=== PATIENT | female | born 1955 | race Caucasian/White ===

== ENCOUNTER 2020-05-16 09:38 | Outpatient (CLI) | payer OTHER, SELFPAY ==
--- NOTE | ~2020-05-16 | NM_ITS ---
NM hepatobiliary w pharm 05/16/2020 13:18 Procedure: Hepatobiliary scan performed following IV administration 4.7 mCi Tc 99m Choletec. At 60 m inutes 1.3 mcg CCK administered IV for evaluation of gallbladder ejection fraction. Indication: Epigastric pain Comparison: Ultrasound dated 04/27/2019 Findings: There is normal radiotracer uptake in the liver parenchyma with prompt excretion into the b iliary tract. Gallbladder visualized at 55 minutes. Small bowel visualized at 40 minutes. Gallbla dder ejection fraction measures 28 %. (Normal is considered 10-90%, but most patients with gallbladde r dysfunction have GBEF of less than 35%) Impression: 1: Gallbladder ejection fraction below normal limits measuring 28%. Low GBEF is associated with gall bladder dysfunction, although not specific for acute or chronic cholecystitis. Reviewed, dictated and finalized at location B. Impression: 1: Gallbladder ejection fraction below normal limits measuring 28%. Low GBEF i s associated with gallbladder dysfunction, although not specific for acute or c hronic cholecystitis.
== END 2020-05-16 09:39 | disposition home or self-care (01) ==
PROVIDERS: PCP Family Medicine
DX: R10.13 Epigastric pain (principal)
CPT/HCPCS: 78227; A9537; J2805

== ENCOUNTER 2020-05-18 09:52 | Emergency (ER) | payer OTHER, SELFPAY ==
--- NOTE | ~2020-05-18 | US_ITS ---
US right upper quadrant INDICATION: Right upper quadrant abdominal pain. PROCEDURE: Realtime right upper abdominal ultrasound. COMPARISON: Ultrasound dated 04/27/2019 FINDINGS: The pancreas is normal without focal mass or pancreatic ductal dilation. Liver echotexture is normal without focal mass or intrahepatic biliary dilatation. Lesions seen in the left hepatic lo be on prior ultrasound not visualized on the current study. There is normal directional flow in the p ortal vein. The gallbladder is normal without stones, gallbladder wall thickening or pericholecystic fluid. Comm on bile duct measures 4 mm. No sonographic Grijalva's sign. IMPRESSION: 1: Normal limited abdominal ultrasound. Reviewed, dictated and finalized at location B.
[2020-05-18 09:59] VITALS: BP 107/83; PULSE 105; RESP 18; TEMP 37.1; O2SAT 100
--- NOTE | 2020-05-18 10:11 | ED.ABDPAIN ---
HPI - Abdominal Pain General Chief Complaint: Abdominal Pain Stated Complaint: GALLBLADDER Time Seen by Provider: 05/18/20 10:08 Related Data Home Medications Medication Instructions Recorded Confirmed alprazolam 0.5 mg PO BID PRN 09/27/19 09/27/19 amlodipine 2.5 mg PO DAILY 09/27/19 09/27/19 aspirin 81 mg PO DAILY 09/27/19 09/27/19 cholecalciferol (vitamin D3) 50,000 unit PO WEEKLY 09/27/19 09/27/19 estradiol 0.5 mg PO DAILY 09/27/19 09/27/19 famotidine [Pepcid] 20 mg PO DAILY 09/27/19 09/27/19 losartan 100 mg PO DAILY 09/27/19 09/27/19 progesterone micronized 200 mg PO HS 09/27/19 09/27/19 pantoprazole 40 mg tablet,delayed 40 mg PO QAM 05/17/20 release Allergies Allergy/AdvReac Type Severity Reaction Status Date / Time No Known Allergies Allergy Verified 05/18/20 10:06 FORMERLY [facility], [facility] Past Medical History Medical History (Updated 05/17/20 @ 15:49 by Sharron Jimenes) Depression Hx of bronchitis Hypertension Surgical History Surgical History (Updated 05/17/20 @ 15:49 by Sharron Jimenes) History of appendectomy lap in 2017 Family History Family History (Updated 06/04/18 @ 08:50 by DOCTOR UNKNOWN) Sibling Diabetes mellitus Hypertension Patient's brother is in good health Mother Patient's mother is in good health Family history of Alzheimer's disease Father Patient's father is , Onset Age: 63 Other Family history of alcoholism Family history of irritable bowel syndrome Family history of osteoporosis Social History Social History (Updated 05/17/20 @ 15:50 by Sharron Jimenes) Smoking packs per day: 1 Smoking cigarettes per day: 20.0 Years smoked: 40 Smoking pack-years: 40.00 Smoking status: Current every day smoker Tobacco type: cigarettes Alcohol intake: current Gender identity (if verbalized by the patient): Female Spiritual care concerns: No Course Vital Signs Vital signs: Vital Signs Temperature 37.1 C 05/18/20 09:59 Pulse Rate 105 H 05/18/20 09:59 Respiratory Rate 18 05/18/20 09:59 Blood Pressure 107/83 05/18/20 09:59 Pulse Oximetry 100 05/18/20 09:59 Temperature 37.1 C 05/18/20 09:59 Pulse Rate 105 H 05/18/20 09:59 Respiratory Rate 18 05/18/20 09:59 Blood Pressure 107/83 05/18/20 09:59 Pulse Oximetry 100 05/18/20 09:59 Discharge Plan Discharge Prescriptions: No Action amlodipine 2.5 mg Tablet 2.5 mg PO DAILY RF: 0 aspirin 81 mg Tablet,Delayed Release (Dr/Ec) 81 mg PO DAILY RF: 0 alprazolam 0.5 mg Tablet 0.5 mg PO BID PRN (Reason: Anxiety) RF: 0 famotidine [Pepcid] 20 mg Tablet 20 mg PO DAILY RF: 0 progesterone micronized 200 mg Capsule 200 mg PO HS RF: 0 estradiol 0.5 mg Tablet 0.5 mg PO DAILY RF: 0 losartan 100 mg Tablet 100 mg PO DAILY RF: 0 cholecalciferol (vitamin D3) 50,000 unit Tablet 50,000 unit PO WEEKLY RF: 0 pantoprazole [Protonix] 40 mg tablet,delayed release (DR/EC) 40 mg PO QAM RF: 0
[2020-05-18 10:36] LABS: Basophils Absolute Auto 0.1 K/mm3 (0.0-0.1); Basophils Percent Auto 1.3 % (0.2-1.2); Eosinophils Absolute Auto 0.7 K/mm3 (0-0.3); Eosinophils Percent Auto 8.1 % (0-4.4); Hemoglobin 14.7 g/dL (12.0-15.0); Immature Granulocyte Absolute 0.02 K/mm3 (0.00-0.031); Immature Granulocyte Percent A 0.2 % (0-0.5); Lymphocytes Absolute Auto 3.45 K/mm3 (0.9-3.2); Lymphocytes Percent Auto 41.7 % (18.3-44.2); Mean Corpuscular HGB Conc 33.4 g/dl (32-36); Mean Corpuscular Hemoglobin 33.2 pg (26-34); Mean Corpuscular Volume 99.3 fl (80-100); Mean Platelet Volume 9.8 fl (7.4-10.4); Monocytes Absolute Auto 0.7 K/mm3 (0.1-0.6); Monocytes Percent Auto 8.6 % (2.6-8.5); Neutrophils Absolute Auto 3.3 K/mm3 (1.3-6.7); Neutrophils Percent Auto 40.1 % (45.5-73.1); Platelet Count Result 252 k/mm3 (150-375); Red Blood Count 4.43 M/mm3 (4.2-5.4); Red Cell Distribution Width 12.6 % (11.5-14.5); White Blood Count 8.3 K/mm3 (4.5-10.0)
[2020-05-18 10:40] LABS: Add Urine Microscopic? NO; Appearance Urine Clear (Clear); Bilirubin Urine Negative (Negative); Blood Urine Negative (Negative); Color Urine Yellow (Yellow); Glucose Urine UA Negative (Negative); Ketones Urine Negative (Negative); Leukocyte Esterase Ur Negative LEU/UL (Negative); Nitrate Urine Negative (Negative); Protein Urine Negative (Negative); Specific Grav Ur 1.009 (1.001-1.035); Urobilinogen Urine Negative mg/dL (<2.0)
[2020-05-18 10:49] LABS: Alanine Aminotransferase 14 U/L (4-35); Albumin Level 4.8 g/dL (3.5-5.1); Alkaline Phosphatase 100 U/L (38-126); Aspartate Amino Transferase 25 U/L (14-36); Bilirubin,Total 0.5 mg/dL (0.2-1.3); Blood Urea Nitrogen 10 mg/dL (7-17); Carbon Dioxide 28 mmol/L (22-30); Chloride 102 mmol/L (98-107); Estimated CRCL calculation 55 ml/min; Estimated Glomerular Filt Rate > 60; Glucose 109 mg/dL (65-105); Lipase 163 U/L (23-300); Sodium 138 mmol/L (137-145)
[2020-05-18] MEDS: MORPHINE SULFATE 4 MG/ML INJ IV PUSH (11:09)
[2020-05-18] MEDS: FAMOTIDINE 20 MG/2 ML VIAL IV PUSH (11:10)
[2020-05-18] MEDS: ONDANSETRON INJ 4 MG/2 ML VIAL IV PUSH (11:10)
[2020-05-18] MEDS: SODIUM CHLORIDE 0.9% IV 1,000 ML 999 ML IV CONT (11:10)
--- NOTE | 2020-05-18 11:17 | ED.ABDPAIN ---
HPI - Abdominal Pain General Chief Complaint: Abdominal Pain <Ivan Yancey PA-C - Last Filed: 05/18/20 12:20> Stated Complaint: GALLBLADDER <PEG Pete Last Filed: 05/18/20 12:20> Time Seen by Provider: 05/18/20 10:08 <PEG Pete Last Filed: 05/18/20 12:20> Source: patient <PEG Pete Last Filed: 05/18/20 12:20> Mode of arrival: ambulatory <PEG Pete Last Filed: 05/18/20 12:20> Limitations: no limitations <PEG Pete Last Filed: 05/18/20 12:20> History of Present Illness HPI narrative: Patient is a 64-year-old female who presents to emergency department for evaluation of right upper quadrant abdominal pain which is been going on for a long. Per patient saw ship fitter in [place] who scheduled a HIDA scan at [facility] which showed a decreased ejection fraction of the gallbladder. Patient notes that this was done on Thursday and since then she has had increasing pain. Patient denies radiation of pain. Patient denies any fever chills nausea vomiting diarrhea rectal bleeding or melena. Patient is not taken anything for her symptoms. Nothing is making the pain better or worse at this time. Patient notes that she prefers a surgeon at [facility] <Ivan Yancey PA-C - Last Filed: 05/18/20 12:20> Related Data Home Medications: Home Medications Medication Instructions Recorded Confirmed alprazolam 0.5 mg PO BID PRN 09/27/19 09/27/19 amlodipine 2.5 mg PO DAILY 09/27/19 09/27/19 aspirin 81 mg PO DAILY 09/27/19 09/27/19 cholecalciferol (vitamin D3) 50,000 unit PO WEEKLY 09/27/19 09/27/19 estradiol 0.5 mg PO DAILY 09/27/19 09/27/19 famotidine [Pepcid] 20 mg PO PRN 09/27/19 09/27/19 losartan 100 mg PO DAILY 09/27/19 09/27/19 progesterone micronized 200 mg PO HS 09/27/19 09/27/19 pantoprazole 40 mg tablet,delayed 40 mg PO QAM 05/17/20 release <Ivan Yancey PA-C - Last Filed: 05/18/20 12:20> Allergies/Adverse Reactions: Allergies Allergy/AdvReac Type Severity Reaction Status Date / Time No Known Allergies Allergy Verified 05/18/20 10:06 <Ivan Yacney PA-C - Last Filed: 05/18/20 12:20> Review of Systems Review of Systems: All systems reviewed & are unremarkable except as noted in HPI and below <Ivan Yancey PA-C - Last Filed: 05/18/20 12:20> PMFSH Past Medical History Medical History: Medical History Depression Hx of bronchitis Hypertension <Ivan Yancey PA-C - Last Filed: 05/18/20 12:20> Surgical History Surgical History: Surgical History History of appendectomy lap in 2017 <Ivan Yancey PA-C - Last Filed: 05/18/20 12:20> Family History Family History: Family History (Updated 06/04/18 @ 08:50 by DOCTOR UNKNOWN) Sibling Diabetes mellitus Hypertension Patient's brother is in good health Mother Patient's mother is in good health Family history of Alzheimer's disease Father Patient's father is , Onset Age: 63 Other Family history of alcoholism Family history of irritable bowel syndrome Family history of osteoporosis <Ivan Yancey PA-C - Last Filed: 05/18/20 12:20> Social History Social History: Social History Smoking packs per day: 1 Smoking cigarettes per day: 20.0 Years smoked: 40 Smoking pack-years: 40.00 Smoking status: Current every day smoker Tobacco type: cigarettes Alcohol intake: current Gender identity (if verbalized by the patient): Female Spiritual care concerns: No <Ivan Yancey PA-C - Last Filed: 05/18/20 12:20> Exam Narrative: Exam Narrative: GENERAL: Well-appearing, well-nourished, and in no acute distress. HEAD: Normocephalic, atraumatic. EYES: P
[2020-05-18 12:45] VITALS: BP 118/74; PULSE 73; RESP 18; O2SAT 98
== END 2020-05-18 12:47 | disposition home or self-care (01) ==
PROVIDERS: Emergency Medicine Emergency Medical Services; Emergency Provider Emergency Medicine; PCP Family Medicine
DX: R10.11 Right upper quadrant pain (principal); Z79.82 Long term (current) use of aspirin; I10 Essential (primary) hypertension; F32.9 Major depressive disorder, single episode, unspecified; F17.210 Nicotine dependence, cigarettes, uncomplicated
CPT/HCPCS: 36415; 76705; 80053; 81003; 83690; 85025; 96361; 96374; 96375; 99284; J2270; J2405; J7030

== ENCOUNTER 2020-05-22 01:27 | Outpatient (CLI) | payer OTHER, SELFPAY ==
[2020-05-22 19:24] LABS: SARS-CoV-2 RNA PCR Negative
== END 2020-05-22 01:28 | disposition home or self-care (01) ==
LOC: ANHCOVIDDT 01:28
PROVIDERS: PCP Family Medicine; Visit Provider Surgery
DX: Z01.818 Encounter for other preprocedural examination (principal); Z11.59 Encounter for screening for other viral diseases
CPT/HCPCS: 87635; C9803; U0003

== ENCOUNTER 2020-05-24 01:21 | Day surgery (SDC) | payer OTHER, SELFPAY ==
[2020-05-22 09:58] VITALS: BMI 21.4
[2020-05-24] VITALS (10 sets, daily range): BP systolic 108–166; BP diastolic 39–89; PULSE 62–124; RESP 12–22; TEMP 36.9–37.1; O2SAT 97–100
[2020-05-24] MEDS: LACTATED RINGERS 1,000 ML 30 ML IV CONT ×2 (12:10→14:09)
--- NOTE | 2020-05-24 12:15 | ECG_ITS ---
Measurements Intervals [place] Rate: 78 P: 68 CT: 149 QRS: 67 QRSD: 86 T: 64 QT: 351 QTc: 400 Interpretive Statements SINUS RHYTHM POSSIBLE LEFT ATRIAL ENLARGEMENT BASELINE ARTIFACT- V4-V5 BORDERLINE ECG Electronically Signed On 05-24-2020 13:13:34 CDT by Sedrick Huntley D.O.
--- NOTE | 2020-05-24 12:24 | WPDANESEPPF ---
Anes - Initial Pre Proc Eval Procedure: Operation Date: 05/24/20 13:30 Proposed Procedures p Laparoscopic Cholecystectomy - Marcia Pollack MD Date/Time: 05/24/20 12:24 Surgeon: Marcia Pollack MD Pre Op Diagnosis: chronic cholecystitis Patient Data Age: 64 Gender: F Height: 5 ft 4 in Weight: 57 kg Allergies Allergy/AdvReac Type Severity Reaction Status Date / Time oxycodone AdvReac UNABLE TO Verified 05/24/20 11:45 SLEEP Home Medications Medication Instructions Recorded Confirmed Type alprazolam 0.5 mg PO BID PRN 09/27/19 05/24/20 History amlodipine 2.5 mg PO DAILY 09/27/19 05/24/20 History aspirin 81 mg PO DAILY 09/27/19 05/24/20 History cholecalciferol (vitamin D3) 50,000 unit PO WEEKLY 09/27/19 05/24/20 History estradiol 0.5 mg PO DAILY 09/27/19 05/24/20 History famotidine [Pepcid] 20 mg PO DIRECTED PRN 09/27/19 05/24/20 History losartan 100 mg PO DAILY 09/27/19 05/24/20 History progesterone micronized 200 mg PO QAM 09/27/19 05/24/20 History pantoprazole 40 mg tablet,delayed 40 mg PO QAM 05/17/20 05/24/20 History release ondansetron 4 mg PO Q8H PRN #10 tablet 05/18/20 05/24/20 Rx tramadol 50 mg tablet 50 mg PO Q6H PRN #30 tablet 05/22/20 05/24/20 Rx Laboratory Tests 05/24/20 12:14 Amylase Pending Patient hx anesthesia problems: none Family hx anesthesia problems: none [facility] Social History Social History Smoking packs per day: 1 Smoking cigarettes per day: 20.0 Years smoked: 40 Smoking pack-years: 40.00 Smoking status: Current every day smoker Tobacco type: cigarettes Alcohol intake: current Drinks per week: 10 Gender identity (if verbalized by the patient): Female Spiritual care concerns: No Anes - Eval Final PreProcedure Day of Procedure 05/24/20 12:24 Patient weight: normal Heart: regular rate and rhythm Lungs: clear to auscultation Airway: Mallampati scale class II Neurological: alert and oriented Last oral intake: >/= 8 hours ASA classification: II Emergent: no Anesthetic plan: proceed Anesthesia type and monitoring: general ETT and standard monitoring Informed Consent: The patient's anesthetic plan and its attendant risks and benefits were discussed with the patient/family/POA. Questions were solicited and answers provided to the satisfaction of the patient/family/POA.
--- NOTE | 2020-05-24 12:26 | WPDHPUPDATE1 ---
History and Physical Update Update Date/Time: 05/24/20 12:26 History and Physical has been reviewed, including an updated exam of the patient. There are NO changes in the patient's condition. Risks, benefits, and alternatives have been discussed and questions answered. Patient agrees to proceed with procedure.
[2020-05-24] MEDS: KETOROLAC 15 MG/ML VIAL (*BKC) IV PUSH (12:33)
[2020-05-24 12:38] LABS: Amylase 75 U/L (30-110)
[2020-05-24] MEDS: ceFAZolin 2 GM/D5W 50 ML 2 GM/50 ML BAG IVPB (12:47)
[2020-05-24] MEDS: BUPIVACAINE/EPINEPHRINE 0.5% 10 ML VIAL 30 ML INFILTRATE (13:30)
--- NOTE | 2020-05-24 14:04 | PM.PROC ---
Procedure Note - Detailed Date of procedure: 05/24/20 Pre-op diagnosis: chronic cholecystitis Post-op diagnosis: same Procedure performed: laparoscopic cholecystectomy Description of procedure: The patient was taken to the operating room placed in the supine position. After adequate induction of general anesthesia, the patient was prepped and draped in normal sterile fashion. A time-out was then performed to verify the patient's identity as well as the procedure being performed. I then made a 5 mm incision in the infraumbilical region. Through this, a Veress needle was placed into the peritoneal cavity and CO2 gas was then insufflated. After adequate pneumoperitoneum was achieved, the Veress needle was removed and a 5 mm trocar was placed through this incision. I then placed the laparoscope through this trocar site and under direct visualization placed a further 12 mm subxiphoid port as well as 2 additional 5 mm ports in the right upper abdomen. The gallbladder was then identified and was noted to be slightly inflamed. I was able to place a grasper at the dome of the gallbladder and this was retracted anterior and cephalad up over the liver. A 2nd retractor was then placed at the infundibulum and retracted laterally, this allowed visualization of the triangle of Calot. I then was able to visualize the cystic duct in its entirety from its proximal insertion into the gallbladder, to its distal junction with the common hepatic/common bile duct junction. At this point, I carefully skeletonized the proximal cystic duct with the [place] dissector. I then clipped and transected the proximal cystic duct. Next I visualized the cystic artery. Again the artery was skeletonized, clipped, and transected. I then used the Bovie cautery to take down the peritoneal attachments of the gallbladder off the liver bed. Once the gallbladder specimen was completely detached, an endo-pouch was placed through the 12 mm port site. I then placed the gallbladder specimen into the Endo pouch and removed the endo-pouch from the 12 mm port site. The specimen will now be sent to pathology for further review. I then copiously irrigated the right upper quadrant. Hemostasis was noted in the liver bed, the clips were noted to be in good position on both the cystic duct stump and the cystic artery stump. No other pathology was noted in the right upper quadrant. I then moved the laparoscope to the subxiphoid port. No iatrogenic injury or other pathology was noted in the lower abdomen. At this point, the abdomen was desufflated and all ports removed. The fascia of the 12 mm subxiphoid port was closed with a 0 Vicryl figure of 8 suture. All port sites were then closed with 4.O Monocryl subcuticular sutures. Dermabond was placed on each incision. The patient tolerated the procedure well, was extubated in the operating room postoperative and will be transferred to the recovery room in stable condition. Implants: none Anesthesia: GETA Surgeon: Marcia Pollack MD Estimated blood loss (mL): 5 Drains: No Packing: No Pathology: yes Complications: No immediate complications Condition: stable Disposition: PACU Findings: mild chronic cholecystitis
--- NOTE | 2020-05-24 16:51 | SUR.PHASEII ---
DR. WILKERSON CALLED RE: HOME PAIN MED; PT REPORTS INSOMNIA WITH TRAMADOL AND OXYCODONE. PT HAS BOTH MEDS AT HOME; DR. WILKERSON INSTRUCTED TO HAVE PT TAKE BENADRYL IF SHE HAS INSOMNIA; PT UNDERSTANDS.
== END 2020-05-24 16:30 | disposition home or self-care (01) ==
PROVIDERS: PCP Family Medicine; Visit Provider Surgery
PROC: 0FT44ZZ Resection of Gallbladder, Percutaneous Endoscopic Approach (ICD-10-PCS; CPT 47562; principal; 2020-05-24 13:30)
DX: K81.1 Chronic cholecystitis (principal); F17.210 Nicotine dependence, cigarettes, uncomplicated; Z79.82 Long term (current) use of aspirin
CPT/HCPCS: 47562; 36415; 82150; 86850; 86900; 86901; 87635; 88304; 93005; A9270; C9803; J0330; J0690; J1100; J1885; J2250; J2405; J2704; J2710; J3010; J7030; J7120; U0003

== ENCOUNTER → 2020-08-10 11:26 | Outpatient (CLI) | payer OTHER, SELFPAY ==
--- NOTE | ~2020-08-10 | MM_ITS ---
EXAMINATION: MM screening douglas BI w alana HISTORY: Screening TECHNIQUE: Craniocaudal and mediolateral oblique 3-D tomosynthesis images were obtained and synthetic 2-D images were generated. CAD analysis was submitted and interpreted. COMPARISON: Comparison to multiple prior studies sequentially, with oldest reviewed study dated 11/27. BREAST PARENCHYMAL COMPOSITION: The breasts are heterogeneously dense, which may obscure small masses . FINDINGS: There is no evidence of suspicious mass, calcification, or architectural distortion to sugg est malignancy in either breast. There has been no suspicious interval change. IMPRESSION: 1. No mammographic evidence of malignancy. 2. Recommend routine screening mammography in one year. BI-RADS Category 1: Negative Reviewed, dictated and finalized at location A.
== END ==
PROVIDERS: Visit Provider Obstetrics & Gynecology Gynecology
DX: Z12.31 Encounter for screening mammogram for malignant neoplasm of breast (principal)
CPT/HCPCS: 77063; 77067

== ENCOUNTER → 2020-08-17 07:38 | Outpatient (CLI) | payer OTHER, SELFPAY ==
--- NOTE | ~2020-08-17 | US_ITS ---
EXAMINATION: US abdomen complete DATE: 08/17/2020 08:20 INDICATION: Generalized abdominal pain, recent cholecystectomy TECHNIQUE: Multiple grayscale and Doppler ultrasound images of the abdomen were obtained. COMPARISON: 05/18/2020 FINDINGS: The head, body, and tail of the pancreas are normal. The liver is normal with normal echoge nicity and echotexture. No surface nodularity. Normal hepatopetal flow in the main portal vein. The g allbladder is surgically absent. The normal common bile duct measures 7 mm. The visualized portions o f the aorta and inferior vena cava are normal. The right kidney measures 9.5 x 3.9 x 4.5 cm. The left kidney measures 10.4 x 5.4 x 4.4 cm. The kidne ys demonstrate normal parenchymal echogenicity. There is no hydronephrosis. The spleen is normal in a ppearance and measures 7.2 cm. IMPRESSION: 1. No sonographic correlate for the patient's symptoms. Interval cholecystectomy. Reviewed, dictated and finalized at location A. IMPRESSION: 1. No sonographic correlate for the patient's symptoms. Interval cholecystectom y.
== END ==
PROVIDERS: PCP Family Medicine; Visit Provider Family Medicine
DX: K81.1 Chronic cholecystitis (principal)
CPT/HCPCS: 76700

== ENCOUNTER → 2021-01-23 09:22 | Outpatient (CLI) | payer OTHER, SELFPAY ==
--- NOTE | ~2021-01-23 | CT_ITS ---
EXAMINATION: CT abdomen pelvis w con DATE: 01/23/2021 10:02 INDICATION: Epigastric and right upper quadrant abdominal pain. Gastrointestinal reflux. Status post cholecystectomy and appendectomy TECHNIQUE: Computed tomography (CT) of the abdomen and pelvis was performed with 100 cc Omnipaque 350 intravenous contrast. Automated exposure control and iterative reconstruction technique were employe d. Exam dose: 325.93 mGy-cm total exam DLP. COMPARISON: 12/20/2018 CT abdomen pelvis FINDINGS: The lung bases are clear. Normal heart size. No pericardial or pleural effusion. Status post cholecystectomy. No hepatic, splenic, pancreatic, adrenal or renal space-occupying mass l esion is evident. No bile duct or pancreatic duct dilatation. No urinary tract calculus or hydrourete ronephrosis. The urinary bladder, uterus and adnexal areas are unremarkable. Normal caliber of the abdominal aorta. No intraperitoneal or retroperitoneal or pelvic mass lesion or adenopathy or ascites is detected. There is diverticulosis of the sigmoid and descending colon but no CT evidence of diverticulitis. No bowel obstruction, bowel wall thickening, pneumatosis or intraperitoneal free air is detected. Included skeletal structures are unremarkable. IMPRESSION: Diverticulosis of the left colon; no CT evidence of diverticulitis Status post cholecystectomy and appendectomy Reviewed, dictated and finalized at Location A. Reviewed, dictated and finalized at location B.
[2021-01-23 09:45] LABS: Estimated Glomerular Filt Rate > 60
== END ==
PROVIDERS: PCP Family Medicine; Visit Provider Family Medicine
DX: R10.13 Epigastric pain (principal); K57.30 Diverticulosis of large intestine without perforation or abscess without bleeding; Z90.49 Acquired absence of other specified parts of digestive tract
CPT/HCPCS: 74177; Q9967

== ENCOUNTER → 2021-02-14 10:26 | Outpatient (CLI) | payer OTHER, SELFPAY ==
--- NOTE | ~2021-02-14 | CT_ITS ---
EXAMINATION: CT lung screening EXAM DATE: 02/14/2021 10:40 INDICATION: Z87.891 - Personal history of nicotine dependence. TECHNIQUE: Spiral low dose CT of the chest without contrast. Axial, coronal and sagittal images were reviewed. The dose-length product (DLP) for this examination was 40.49 mGy-cm. The exposure was ta ilored according to patient size (auto mA exposure control), and iterative reconstruction (ASIR) was used as additional dose reduction technique. Comparison is made to prior examination from 07/01/2018. FINDINGS: Mild emphysema and hyperinflation. There is 3 mm right lower lobe superior segmental nodul e, and a left lower lobe 3 mm nodule both unchanged consistent with granulomata. No suspicious pulmon cash nodules. Tracheobronchial tree is patent. There is no mediastinal, hilar or axillary lymphadeno kavya. There are no pleural or pericardial effusions. There is no pneumothorax. Heart normal in size. There is mild coronary arterial calcification, arterial sclerosis. There are cholecystectom y clips. There is mild thoracic spondylosis without osteoblastic or osteolytic lesions identified. There is no significant interval change. IMPRESSION: Lung-RADS category 2, benign appearance or behavior (<1% chance of malignancy); recommend continued LDCT screening in 1 year. Reviewed, dictated and finalized at location A.
== END ==
PROVIDERS: PCP Family Medicine; Visit Provider Nurse Practitioner Family
DX: Z12.2 Encounter for screening for malignant neoplasm of respiratory organs (principal); Z87.891 Personal history of nicotine dependence
CPT/HCPCS: 71271

== ENCOUNTER 2021-02-16 08:06 | Emergency (ER) | payer OTHER, SELFPAY ==
--- NOTE | ~2021-02-16 | XR_ITS ---
EXAMINATION: XR shoulder LT min 2V DATE: 02/16/2021 08:59 INDICATION: Left shoulder pain TECHNIQUE: AP internally and externally rotated, AP oblique externally rotated and transscapular Y vi ews of the left shoulder were obtained. COMPARISON: 12/25/2007 FINDINGS: Interval healing of the previously seen comminuted proximal left humeral fracture with negligible res idual deformity at the surgical neck and greater tuberosity. Alignment remains essentially anatomic. No acute fracture.Mild glenohumeral and acromioclavicular osteoarthritis. Visualized portions of the lungs are clear. Soft tissues are unremarkable. IMPRESSION: 1. Old healed proximal left humeral fracture with no acute osseous abnormality. 2. Mild glenohumeral and acromioclavicular osteoarthritis. Reviewed, dictated and finalized at location A.
--- NOTE | 2021-02-16 08:22 | ED.GENADULT ---
HPI - General Adult General Chief complaint: Extremity Injury, Upper Stated complaint: Left shoulder Pain Time Seen by Provider: 02/16/21 08:30 Source: patient and RN notes reviewed Mode of arrival: ambulatory Limitations: no limitations History of Present Illness HPI narrative: 65 year old female who presents to [facility] care with complaints of pain to her left shoulder for the past 4 days. Patient states that she carried a bag of clothes in her left arm on Thursday from [employer] but denies any known injury or fall onto her left shoulder. Patient states that pain is from top of her left shoulder and it radiates down her left arm, she states that pain feels deep in her upper arm. Patient does have some limited ROM of her shoulder but denies any tingling or numbness of her fingers or arm, has strong left radial pulse. Patient states that she did have previous fracture to her left upper arm. MD complaint: left shoulder and arm pain Onset (ago): day(s) (4) Location: upper extremity (left shoulder) Radiation: distal Severity scale (1-10): 5 Quality: aching Pain Consistency: constant Relieving factors: none Exacerbating factors: movement Associated symptoms: denies other symptoms Treatments prior to arrival: other (Tylenol) Related Data Home Medications Medication Instructions Recorded Confirmed aspirin 81 mg PO DAILY 09/27/19 01/30/21 estradiol 0.5 mg PO DAILY 09/27/19 01/30/21 progesterone micronized 200 mg PO QAM 09/27/19 01/30/21 Allergies Allergy/AdvReac Type Severity Reaction Status Date / Time tramadol AdvReac Intermediate Other Verified 01/30/21 11:10 oxycodone AdvReac UNABLE TO Verified 01/30/21 11:10 SLEEP Review of Systems Review of Systems: Narrative: CONSTITUTIONAL: Denies fever, chills, or sweats. EYES: Denies visual changes, redness, or discharge. ENT: Denies rhinorrhea, congestion, sore throat, or otalgia. CARDIOVASCULAR: Denies chest pain, palpitations, or edema. RESPIRATORY: Denies productive cough or acute dyspnea. GASTROINTESTINAL: Denies abdominal pain, nausea, vomiting, or diarrhea. GENITOURINARY: Denies dysuria or hematuria. SKIN: Denies rash or itching. MUSCULOSKELETAL: States some lower back pain,left shoulder joint pain, or myalgia. NEUROLOGIC: Denies headache, numbness, or weakness. PSYCHIATRIC: Positive anxiety or depression. All systems reviewed & are unremarkable except as noted in HPI and below PMFSH Past Medical History Medical History (Updated 02/18/21 @ 11:22 by Vandana Joy NP) Anxiety disorder, unspecified Depression Fracture of left humerus GERD without esophagitis High triglycerides Hx of bronchitis Hypertension Obstructive lung disease Screening, lipid Surgical History Surgical History History of appendectomy lap in 2017 Family History Family History Sibling Diabetes mellitus Hypertension Patient's brother is in good health Mother Patient's mother is in good health Family history of Alzheimer's disease Father Patient's father is , Onset Age: 63 Other Family history of alcoholism Family history of irritable bowel syndrome Family history of osteoporosis Social History Social History Smoking packs per day: 1 Smoking cigarettes per day: 20.0 Years smoked: 40 Smoking pack-years: 40.00 Smoking status: Current every day smoker Tobacco type: cigarettes Alcohol intake: current Drinks per week: 10 Gender identity (if verbalized by the patient): Female Spiritual care concerns: No Comments At time of signature, agree with nursing past medical, surgical, social and family history. There is no relevant family history pertinent to the presenting complaint Exam Narrative: Exam Narrative: GENERAL: Well-appearing, well-nourished, and in no acute distress.
[2021-02-16 08:27] VITALS: BP 140/50; PULSE 86; RESP 20; TEMP 36.5; O2SAT 100
== END 2021-02-16 09:30 | disposition home or self-care (01) ==
PROVIDERS: Emergency Provider Registered Nurse; PCP Family Medicine
DX: M25.512 Pain in left shoulder (principal); F17.210 Nicotine dependence, cigarettes, uncomplicated; F41.9 Anxiety disorder, unspecified; F32.9 Major depressive disorder, single episode, unspecified; K21.9 Gastro-esophageal reflux disease without esophagitis; I10 Essential (primary) hypertension; E78.1 Pure hyperglyceridemia; Z79.82 Long term (current) use of aspirin
CPT/HCPCS: 73030; 99213; G0463

== ENCOUNTER → 2021-04-09 02:29 | Outpatient (CLI) | payer OTHER, SELFPAY ==
[2021-04-09 23:31] LABS: SARS-CoV-2 RNA PCR Negative
== END ==
PROVIDERS: PCP Family Medicine; Visit Provider Internal Medicine Gastroenterology
DX: Z01.812 Encounter for preprocedural laboratory examination (principal); Z20.822 Contact with and (suspected) exposure to COVID-19
CPT/HCPCS: C9803; U0003; U0005

== ENCOUNTER 2021-04-12 00:28 | Day surgery (SDC) | payer OTHER, SELFPAY ==
[2021-04-04 10:40] VITALS: BMI 20.8
[2021-04-12 09:36] VITALS: BMI 20.6
[2021-04-12] MEDS: LACTATED RINGERS 1,000 ML 150 ML IV CONT (09:43)
--- NOTE | 2021-04-12 10:07 | WPDANESEPPF ---
Anes - Initial Pre Proc Eval Procedure: Operation Date: 04/12/21 10:45 Proposed Procedures p Esophagogastroduodenoscopy & Screening Colonoscopy - George Robertson MD Date/Time: 04/12/21 10:07 Surgeon: George Robertson MD Pre Op Diagnosis: neoplasm screen, fam hx colon polyps, epigastric p Patient Data Age: 65 Gender: F Height: 5 ft 4 in Weight: 54.6 kg Allergies Allergy/AdvReac Type Severity Reaction Status Date / Time tramadol AdvReac Intermediate Other Verified 04/12/21 09:34 oxycodone AdvReac UNABLE TO Verified 04/12/21 09:34 SLEEP Home Medications Medication Instructions Recorded Confirmed Type aspirin 81 mg PO DAILY 09/27/19 04/12/21 History estradiol 0.5 mg PO DAILY 09/27/19 04/12/21 History progesterone micronized 200 mg PO QAM 09/27/19 04/12/21 History alprazolam 0.5 mg tablet 0.5 mg PO BID PRN #180 tablet 01/14/21 04/12/21 Rx pantoprazole 40 mg tablet,delayed 40 mg PO QAM #90 tablet 01/14/21 04/12/21 Rx release umeclidinium 62.5 mcg-vilanterol 1 inh INHALATION DAILY 02/21/21 04/12/21 History 25 mcg/actuation powdr for inhalation amlodipine 2.5 mg tablet 2.5 mg PO DAILY #90 tablet 03/04/21 04/12/21 Rx sodium,potassium,mag sulfates 17.5 See Rx Instructions PO .COMPLEX 03/12/21 04/12/21 Rx gram-3.13 gram-1.6 gram oral soln #354 ml sertraline 25 mg tablet 25 mg PO DAILY #90 tablet 04/02/21 04/12/21 Rx losartan 100 mg PO DAILY 04/04/21 04/12/21 History rosuvastatin 20 mg PO DAILY 04/04/21 04/12/21 History Patient hx anesthesia problems: none Family hx anesthesia problems: none PMFSH Past Medical History Medical History (Updated 02/21/21 @ 11:22 by George Robertson MD) Anxiety disorder, unspecified Depression Epigastric pain Fracture of left humerus GERD without esophagitis High triglycerides Hx of bronchitis Hypertension Nausea Obstructive lung disease Screening, lipid Surgical History Surgical History History of appendectomy lap in 2017 Family History Family History Sibling Diabetes mellitus Hypertension Patient's brother is in good health Mother Patient's mother is in good health Family history of Alzheimer's disease Father Patient's father is , Onset Age: 63 Other Family history of alcoholism Family history of irritable bowel syndrome Family history of osteoporosis Social History Social History Smoking packs per day: 1 Smoking cigarettes per day: 20.0 Years smoked: 40 Smoking pack-years: 40.00 Smoking status: Current every day smoker Tobacco type: cigarettes Alcohol intake: current Drinks per week: 10 Alcohol use details: SOCIALLY Living arrangements: with family Gender identity (if verbalized by the patient): Female Spiritual care concerns: No Anes - Eval Final PreProcedure Day of Procedure 04/12/21 10:07 Patient weight: normal Heart: regular rate and rhythm Lungs: clear to auscultation Airway: Mallampati scale class II Neurological: alert and oriented ASA classification: III Emergent: no Anesthetic plan: proceed Anesthesia type and monitoring: general GIVS and standard monitoring Informed Consent: The patient's anesthetic plan and its attendant risks and benefits were discussed with the patient/family/POA. Questions were solicited and answers provided to the satisfaction of the patient/family/POA.
--- NOTE | 2021-04-12 10:12 | PM.HPGS ---
History of Present Illness History of Present Illness Consent: Risks, benefits, and alternatives have been discussed and questions answered. Patient agrees to proceed with procedure. Chief complaint: neoplasm screen, fam hx colon polyps, epigastric p Narrative: Tonia Azar is a 65 year old female here for egd and colooscopy. She has been having epigastric pain with radiation to RUQ for almost 2 years, she underwent lap velia but discomfort is back again, will stay all the time even though she changed her diet, sometimes pain is more intense and is affecting her quality of life. She also has chronic daily nausea. she is quite frustrated and would like to have answers. She has GES next week, then would like to see us in office [place] to discuss results Review of Systems Constitutional: Constitutional: Denies headache(s) and Denies weakness Eyes: Eyes: Denies blurry vision ENT: Reports Normal hearing present, Denies headache(s) and Denies neck pain Cardiovascular: Cardiovascular: Denies chest pain and Denies dyspnea Respiratory: Respiratory: Denies dyspnea Gastrointestinal: Gastrointestinal: Reports no additional gastrointestinal complaints Genitourinary: Genitourinary: Denies dysuria Musculoskeletal: Musculoskeletal: Denies neck pain Integumentary/Breasts: Skin/Breast: Denies dry skin Neurologic: Reports Normal hearing present, Denies headache(s) and Denies weakness Psychiatric: Psychiatric: Denies anxiety Endocrine: Endocrine: Denies change in body appearance Hematologic/Lymphatic: Hematologic/Lymphatic: Denies easy bleeding Allergic/Immunologic: Allergic/Immunologic: Denies urticaria PMFSH Past Medical History Medical History (Updated 04/12/21 @ 10:14 by George Robertson MD) Anxiety disorder, unspecified Chronic RUQ pain Colon cancer screening Depression Epigastric pain Fracture of left humerus GERD without esophagitis High triglycerides Hx of bronchitis Hypertension Nausea Obstructive lung disease Screening, lipid Surgical History Surgical History History of appendectomy lap in 2017 Family History Family History Sibling Diabetes mellitus Hypertension Patient's brother is in good health Mother Patient's mother is in good health Family history of Alzheimer's disease Father Patient's father is , Onset Age: 63 Other Family history of alcoholism Family history of irritable bowel syndrome Family history of osteoporosis Social History Social History Smoking packs per day: 1 Smoking cigarettes per day: 20.0 Years smoked: 40 Smoking pack-years: 40.00 Smoking status: Current every day smoker Tobacco type: cigarettes Alcohol intake: current Drinks per week: 10 Alcohol use details: SOCIALLY Living arrangements: with family Gender identity (if verbalized by the patient): Female Spiritual care concerns: No Meds Home Medications and Allergies Home Medications Medication Instructions Recorded Confirmed Type aspirin 81 mg PO DAILY 09/27/19 04/12/21 History estradiol 0.5 mg PO DAILY 09/27/19 04/12/21 History progesterone micronized 200 mg PO QAM 09/27/19 04/12/21 History alprazolam 0.5 mg tablet 0.5 mg PO BID PRN #180 tablet 01/14/21 04/12/21 Rx pantoprazole 40 mg tablet,delayed 40 mg PO QAM #90 tablet 01/14/21 04/12/21 Rx release umeclidinium 62.5 mcg-vilanterol 1 inh INHALATION DAILY 02/21/21 04/12/21 History 25 mcg/actuation powdr for inhalation amlodipine 2.5 mg tablet 2.5 mg PO DAILY #90 tablet 03/04/21 04/12/21 Rx sodium,potassium,mag sulfates 17.5 See Rx Instructions PO .COMPLEX 03/12/21 04/12/21 Rx gram-3.13 gram-1.6 gram oral soln #354 ml sertraline 25 mg tablet 25 mg PO DAILY #90 tablet 04/02/21 04/12/21 Rx losartan 100 mg PO
[2021-04-12 10:47] VITALS: BP 99/58; PULSE 99; RESP 28; O2SAT 99
[2021-04-12 10:57] VITALS: BP 115/67; PULSE 79; RESP 16; O2SAT 99
[2021-04-12 11:07] VITALS: BP 132/75; PULSE 79; RESP 16; O2SAT 99
== END 2021-04-12 11:22 | disposition home or self-care (01) ==
PROVIDERS: PCP Family Medicine; Visit Provider Internal Medicine Gastroenterology
PROC: 0DJ08ZZ Inspection of Upper Intestinal Tract, Via Natural or Artificial Opening Endoscopic (ICD-10-PCS; CPT 43235; principal; 2021-04-12 10:45)
DX: Z12.11 Encounter for screening for malignant neoplasm of colon (principal); D12.4 Benign neoplasm of descending colon; K57.30 Diverticulosis of large intestine without perforation or abscess without bleeding; K21.00 Gastro-esophageal reflux disease with esophagitis, without bleeding; K64.8 Other hemorrhoids; R11.0 Nausea; K21.9 Gastro-esophageal reflux disease without esophagitis; F41.9 Anxiety disorder, unspecified; F41.8 Other specified anxiety disorders; I10 Essential (primary) hypertension; F17.210 Nicotine dependence, cigarettes, uncomplicated; Z79.82 Long term (current) use of aspirin
CPT/HCPCS: 45385; 43239; 88305; C9803; J2704; J7120; U0003; U0005

== ENCOUNTER 2021-04-15 08:37 | Outpatient (CLI) | payer OTHER, SELFPAY ==
--- NOTE | ~2021-04-15 | NM_ITS ---
EXAM: NM gastric emptying study DATE: 04/15/2021 13:51 INDICATION: Nausea TECHNIQUE: A gastric emptying study was performed using the methodology of Walker DONALD, et al. J Nucl Med 2007; 48:568-572. The patient was given a meal consisting of 2 scrambled eggs labeled with 1 mCi Tc-99m sulfur colloid, 2 slices of toast, two packages of jam, and approximately 120 mL of water. Si multaneous anterior and posterior 1-min images of the abdomen were obtained with the patient supine a t multiple time points over a total period of 4 hours. The geometric mean of anterior and posterior v iews was determined, and the percentage retention was calculated for each time point. COMPARISON: None. FINDINGS: Gastric retention of the radiotracer-labeled meal was 63%, 41%, and 14% at the 1-hour, 2-hour, and 4- hour time points, respectively. With this technique, apparent rapid gastric emptying is suggested by <30% gastric retention at 1 hour. Delayed gastric emptying is defined by gastric retention of >90% at 1 hour, >60% retention at 2 hours, or >10% retention at 4 hours. IMPRESSION: 1. Delayed gastric emptying. Reviewed, dictated and finalized at location A.
== END 2021-04-15 08:38 | disposition home or self-care (01) ==
LOC: ANHIMG 08:43
PROVIDERS: PCP Family Medicine; Visit Provider Internal Medicine Gastroenterology
DX: K30 Functional dyspepsia (principal); R11.0 Nausea
CPT/HCPCS: 78264; A9541

== ENCOUNTER 2021-04-19 11:31 | Outpatient (CLI) | payer OTHER, SELFPAY ==
[2021-04-26 11:21] LABS: Coproporphyrin I 13.6 (6.5-33.2)
== END 2021-04-19 11:32 | disposition home or self-care (01) ==
PROVIDERS: PCP Family Medicine; Visit Provider Nurse Practitioner Family
DX: R10.9 Unspecified abdominal pain (principal)
CPT/HCPCS: 84120

== ENCOUNTER → 2021-08-29 14:14 | Outpatient (CLI) | payer OTHER, SELFPAY ==
--- NOTE | ~2021-08-29 | MM_ITS ---
EXAMINATION: MM screening douglas BI w alana HISTORY: Screening mammogram TECHNIQUE: Craniocaudal and mediolateral oblique 3-D tomosynthesis images were obtained and synthetic 2-D images were generated. CAD analysis was submitted and interpreted. COMPARISON: 08/10/2020, bilateral screening mammogram examinations bilateral diagnostic and limited right breast ultrasound 09/08/2017, 02/05/2017 complete right breast ultrasound examination diagnostic right mammogram 01/26/2017 bilateral screening mammogram BREAST PARENCHYMAL COMPOSITION: The breasts are heterogeneously dense, which may obscure small masses . FINDINGS: Occasional benign calcifications. There is no evidence of suspicious mass, calcification, o r architectural distortion to suggest malignancy in either breast. There has been no suspicious inter ashlyn change. IMPRESSION: 1. No mammographic evidence of malignancy. 2. Recommend routine screening mammography in one year. BI-RADS Category 2: Benign finding(s). Reviewed, dictated and finalized at location A.
== END ==
PROVIDERS: Visit Provider Nurse Practitioner
DX: Z12.31 Encounter for screening mammogram for malignant neoplasm of breast (principal)
CPT/HCPCS: 77063; 77067

== ENCOUNTER → 2021-09-10 18:03 | Outpatient (CLI) | payer OTHER, SELFPAY ==
--- NOTE | ~2021-09-10 | DEXA_ITS ---
Bone Density Report Name: Tonia Azar Age: 65 Sex: Female Ethnicity: White Date of : 1955 Indication: osteopenia; monitoring treatment; prior fracture; postmenopausal Referring Provider: TAMIR, MANDY Study: Bone densitometry was performed. Exam Date: September 10, 2021 Accession number: [id number] Bone Density: Region BMD T-score Z-score Classification AP Spine (L1-L4) 1.076 0.3 1.9 Normal Femoral Neck (Left) 0.663 -1.7 -0.2 Osteopenia Total Hip (Left) 0.766 -1.4 -0.3 Osteopenia Femoral Neck (Right) 0.572 -2.5 -1.0 Osteoporosis Total Hip (Right) 0.684 -2.1 -1.0 Osteopenia Total Hip Mean 0.725 -1.8 -0.7 Osteopenia World Health Organization criteria for BMD impression classify patients as: Normal (T-score at or above -1.0), Osteopenia (T-score between -1.0 and -2.5), or Osteoporosis (T-score at or below -2.5). 10-year Fracture Risk: FRAX not reported because: Some T-score for Spine Total or Hip Total or Femoral Neck at or below -2.5 Treated for osteoporosis Previous Exams: Region Exam Age BMD T-score BMD Change BMD Change Date g/cm2 vs Baseline vs Previous AP Spine(L1-L4) 09/10/2021 65 1.076 0.3 0.009 -0.012 05/02/2019 63 1.088 0.4 0.020 -0.029* 08/22/2016 60 1.117 0.6 0.049* 0.002 07/21/2014 58 1.115 0.6 0.047* 0.030* 03/16/2012 56 1.084 0.3 0.017 0.017 11/24/2008 52 1.068 0.2 Total Hip(Left) 09/10/2021 65 0.766 -1.4 -0.009 0.012 05/02/2019 63 0.754 -1.5 -0.021 -0.008 08/22/2016 60 0.763 -1.5 -0.013 0.003 07/21/2014 58 0.759 -1.5 -0.016 0.004 03/16/2012 56 0.756 -1.5 -0.020 -0.020 11/24/2008 52 0.775 -1.4 Total Hip(Right) 09/10/2021 65 0.684 -2.1 -0.052* -0.027* 05/02/2019 63 0.711 -1.9 -0.024 -0.044* 08/22/2016 60 0.755 -1.5 0.020 0.014 07/21/2014 58 0.742 -1.6 0.006 0.027 03/16/2012 56 0.715 -1.9 -0.021 -0.021 11/24/2008 52 0.736 -1.7 *Denotes significance at 95% confidence level, LSC for AP Spine = 0.022 g/cm2, LSC for Total Hip = 0.027 g/cm2 Clinical Information Provided by Patient: Has had a low trauma fracture Smokes Is being treated for osteoporosis Has used the following medications: HRT (i.e. estrogen/hormone t
== END ==
PROVIDERS: Visit Provider Nurse Practitioner
DX: Z78.0 Asymptomatic menopausal state (principal); M85.89 Other specified disorders of bone density and structure, multiple sites; M81.0 Age-related osteoporosis without current pathological fracture
CPT/HCPCS: 77080

== ENCOUNTER 2022-05-13 19:03 | Emergency (ER) | payer OTHER, SELFPAY ==
--- NOTE | ~2022-05-13 | CT_ITS ---
EXAMINATION: CT abdomen pelvis w con DATE: 05/13/2022 23:16 INDICATION: Epigastric abdominal pain. TECHNIQUE: Computed tomography (CT) of the abdomen and pelvis was performed with 100 mL Omnipaque 300 intravenous contrast. Automated exposure control and iterative reconstruction technique were employe d. The dose-length product was 255.00 mGy-cm. COMPARISON: CT abdomen and pelvis 01/23/2021 FINDINGS: The visualized portions of the lung bases demonstrate mild atelectasis. No pleural effusion . The liver and spleen are normal. There are changes of cholecystectomy. The pancreas, adrenal glands , and kidneys are normal. There is diverticulosis of the colon without evidence of diverticulitis. Th e appendix is not visualized. There are no pathologically enlarged lymph nodes. There is no free intr aperitoneal fluid. There is mild lumbar spondylosis. IMPRESSION: 1. No etiology for the patient's symptoms. Reviewed, dictated and finalized at location A.
[2022-05-13 19:28] VITALS: BP 133/52; PULSE 80; RESP 16; TEMP 36.6; O2SAT 99
[2022-05-13 21:10] LABS: Basophils Absolute Auto 0.1 K/mm3 (0.0-0.1); Basophils Percent Auto 0.4 % (0.2-1.2); Eosinophils Absolute Auto 0.7 K/mm3 (0-0.3); Eosinophils Percent Auto 5.2 % (0-4.4); Hematocrit 38.9 % (37.0-47.0); Hemoglobin 12.5 g/dL (12.0-15.0); Immature Granulocyte Absolute 0.06 K/mm3 (0.00-0.031); Immature Granulocyte Percent A 0.4 % (0-0.5); Lymphocytes Absolute Auto 2.71 K/mm3 (0.9-3.2); Lymphocytes Percent Auto 19.1 % (18.3-44.2); Mean Corpuscular HGB Conc 32.1 g/dl (32-36); Mean Corpuscular Hemoglobin 32.3 pg (26-34); Mean Corpuscular Volume 100.5 fl (80-100); Mean Platelet Volume 9.9 fl (7.4-10.4); Monocytes Absolute Auto 1.1 K/mm3 (0.1-0.6); Neutrophils Absolute Auto 9.5 K/mm3 (1.3-6.7); Neutrophils Percent Auto 66.9 % (45.5-73.1); Platelet Count Result 233 k/mm3 (150-375); Red Blood Count 3.87 M/mm3 (4.2-5.4); Red Cell Distribution Width 12.6 % (11.5-14.5); White Blood Count 14.2 K/mm3 (4.5-10.0)
[2022-05-13 21:22] LABS: Appearance Urine Clear (Clear); Bilirubin Urine Negative (Negative); Blood Urine Negative (Negative); Color Urine Yellow (Yellow); Glucose Urine UA Negative (Negative); Ketones Urine 1+ mg/dL (Negative); Leukocyte Esterase Ur Negative LEU/UL (Negative); Nitrate Urine Negative (Negative); Protein Urine Negative (Negative); Specific Grav Ur >= 1.030 (1.001-1.035); Urobilinogen Urine 0.2 mg/dL (<2.0); pH Urine 5.5 (5.0-9.0)
[2022-05-13 21:26] LABS: Alanine Aminotransferase 64 U/L (6-35); Albumin Level 4.2 g/dL (3.5-5.1); Alkaline Phosphatase 78 U/L (38-126); Anion Gap 7 mmol/L (8-16); Aspartate Amino Transferase 167 U/L (14-36); Bilirubin,Total 0.2 mg/dL (0.2-1.3); Blood Urea Nitrogen 11 mg/dL (7-17); Calcium 9.8 mg/dL (8.4-10.2); Carbon Dioxide 26 mmol/L (22-30); Chloride 106 mmol/L (98-107); Estimated CRCL calculation 63 ml/min; Estimated Glomerular Filt Rate > 60; Glucose 126 mg/dL (65-110); Lipase 158 U/L (23-300); Potassium 3.7 mmol/L (3.4-5.0); Sodium 139 mmol/L (137-145)
[2022-05-13 21:30] LABS: Add Urine Microscopic? YES; Mucus Urine Rare /lpf; RBC Urine 0-2 /hpf (0-2); Squamous Epithelial Cell Urine Few /hpf (Few); WBC Urine 0-3 /hpf
--- NOTE | 2022-05-13 22:26 | ED.ABDPAIN ---
HPI - Abdominal Pain General Chief Complaint: Abdominal Pain Stated Complaint: abd pain Time Seen by Provider: 05/13/22 21:37 History of Present Illness HPI narrative: Patient is a 66-year-old female who presents ER with upper abdominal pain. Began around 1:30 in the afternoon. It occurred after she had gone to the dentist to have a dental extraction. She did take a pain pill and a antibiotic due to the procedure. Pain was severe for about 20 to 30 minutes. No radiation. Sharp. No alleviating factors. Currently having pain at 6/10. She felt nauseated initially. No vomiting. No diarrhea. No urinary frequency urgency or dysuria. Patient no longer has a appendix or a gallbladder. Related Data Home Medications Medication Instructions Recorded Confirmed aspirin 81 mg tablet,delayed 81 mg PO DAILY 09/27/19 05/07/22 release estradiol 0.5 mg tablet 0.5 mg PO DAILY 08/27/21 05/07/22 progesterone micronized 200 mg 200 mg PO QAM 08/27/21 05/07/22 capsule Allergies Allergy/AdvReac Type Severity Reaction Status Date / Time tramadol AdvReac Intermediate Other Verified 05/13/22 19:32 oxycodone AdvReac UNABLE TO Verified 05/13/22 19:32 SLEEP Review of Systems Review of Systems: All systems reviewed & are unremarkable except as noted in HPI and below Constitutional: Constitutional: Denies chills and Denies fever(s) ENT: Denies nasal congestion and Denies sore throat Cardiovascular: Cardiovascular: Denies chest pain, Denies rapid heart rate and Denies radiating jaw, neck or arm pain Respiratory: Respiratory: Denies cough and Denies dyspnea Gastrointestinal: Gastrointestinal: Reports abdominal pain, Denies bloating, Reports nausea and Denies vomiting Genitourinary: Genitourinary: Denies nocturia, Denies dysuria and Denies flank pain Musculoskeletal: Musculoskeletal: Denies back pain, Denies myalgias and Denies arthralgias [facility] Past Medical History Medical History Adenomatous colon polyp Anxiety disorder, unspecified BMI 21.0-21.9, adult Cholecystectomy planned Chronic RUQ pain Colon cancer screening COVID-19 Depression Epigastric pain Fracture of left humerus Gastroparesis GERD without esophagitis High triglycerides Hx of bronchitis Hypertension Nausea Obstructive lung disease Screening, lipid Surgical History Surgical History History of appendectomy lap in 2017 Family History Family History Sibling Diabetes mellitus Hypertension Patient's brother is in good health Acute myocardial infarction Mother Patient's mother is in good health Family history of Alzheimer's disease Father Patient's father is , Onset Age: 63 Other Family history of alcoholism Family history of irritable bowel syndrome Family history of osteoporosis Social History Social History Smoking packs per day: 1 Smoking cigarettes per day: 20.0 Years smoked: 40 Smoking pack-years: 40.00 Smoking status: Current every day smoker Tobacco type: cigarettes Second hand tobacco smoke exposure: No Alcohol intake: current Drinks per week: 10 Alcohol use details: SOCIALLY Substance use: never Substance use type: does not use 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 HEAD: Normocephalic, atraumatic. ENT: Mucous membranes moist. CHEST: Clear to auscultation. No respiratory distress. HEART: Regular rate and rhythm. Normal peripheral pulses. ABDOMEN: Soft, mild generalized upper abdominal discomfort without guarding, nondistended. EXTREMITIES: Normal range of motion
[2022-05-13] MEDS: ONDANSETRON INJ 4 MG/2 ML VIAL IV PUSH (23:28)
[2022-05-13] MEDS: MORPHINE SULFATE (*CRX) 4 MG/ML INJ IV PUSH (23:29)
[2022-05-14 01:49] VITALS: BP 138/62; PULSE 82; RESP 18; O2SAT 98
[2022-05-14 02:02] LABS: SARS-CoV-2 RNA PCR Negative
== END 2022-05-14 01:52 | disposition home or self-care (01) ==
PROVIDERS: Physician Assistant; Emergency Provider Emergency Medicine; PCP Family Medicine
DX: K29.70 Gastritis, unspecified, without bleeding (principal); Z20.822 Contact with and (suspected) exposure to COVID-19; I10 Essential (primary) hypertension; J44.9 Chronic obstructive pulmonary disease, unspecified; K21.9 Gastro-esophageal reflux disease without esophagitis; K31.84 Gastroparesis; Z86.16 Personal history of COVID-19; Z86.010 Personal history of colon polyps; F17.210 Nicotine dependence, cigarettes, uncomplicated
CPT/HCPCS: 36415; 74177; 80053; 81001; 83690; 85025; 96374; 96375; 99284; C9803; J2270; J2405; Q9967; U0003; U0005

== ENCOUNTER 2022-05-22 10:30 | Outpatient (CLI) | payer OTHER, SELFPAY ==
--- NOTE | ~2022-05-22 | CT_ITS ---
EXAMINATION:CT lung screening DATE: 05/22/2022 11:15 INDICATION: Tobacco use. Current smoker with 40 pack year history. TECHNIQUE: Computed tomography (CT) of the chest was performed without intravenous contrast. Automate d exposure control and iterative reconstruction technique were employed. The dose-length product (DLP ) was 67.19 mGy-cm. COMPARISON: Chest CT 02/14/2021 FINDINGS: There is stable mild scarring at the lung apices. There is mild emphysema. There is mild at electasis bilaterally. There is a 2 mm nodule in right lower lobe. No pleural effusion. The heart siz e is normal. There are coronary artery calcifications. No pericardial effusion. There are changes of cholecystectomy. There is mild thoracic spondylosis. There is a benign bone island in T8 vertebral matilde dy. IMPRESSION: 1. Lung-RADS category 2: Benign appearance or behavior. Continue annual screening with noncontrast lo w-dose chest CT in 12 months. Reviewed, dictated and finalized at location A. IMPRESSION: 1. Lung-RADS category 2: Benign appearance or behavior. Continue annual screeni ng with noncontrast low-dose chest CT in 12 months.
== END 2022-05-22 10:31 | disposition home or self-care (01) ==
PROVIDERS: PCP Family Medicine; Visit Provider Nurse Practitioner Family
DX: Z12.2 Encounter for screening for malignant neoplasm of respiratory organs (principal); Z87.891 Personal history of nicotine dependence
CPT/HCPCS: 71271

== ENCOUNTER → 2022-12-23 16:11 | Outpatient (CLI) | payer MEDICARE, SELFPAY ==
--- NOTE | ~2022-12-23 | MM_ITS ---
EXAMINATION: MM screening douglas BI w alana HISTORY: Screening mammogram TECHNIQUE: Craniocaudal and mediolateral oblique 3-D tomosynthesis images were obtained and synthetic 2-D images were generated. CAD analysis was submitted and interpreted. COMPARISON: 08/21/2021, 08/06/2020, 05/02/2019 bilateral screening mammogram examinations BREAST PARENCHYMAL COMPOSITION: The breasts are heterogeneously dense, which may obscure small masses . FINDINGS: There is no evidence of suspicious mass, calcification, or architectural distortion to sugg est malignancy in either breast. There has been no suspicious interval change. IMPRESSION: 1. No mammographic evidence of malignancy. 2. Recommend routine screening mammography in one year. BI-RADS Category 1: Negative Reviewed, dictated and finalized at location A. E TESTER
== END ==
PROVIDERS: PCP Obstetrics & Gynecology Gynecology; Visit Provider Obstetrics & Gynecology Gynecology
DX: Z12.31 Encounter for screening mammogram for malignant neoplasm of breast (principal)
CPT/HCPCS: 77063; 77067

== ENCOUNTER 2023-06-02 08:05 | Outpatient (CLI) | payer MEDICARE, SELFPAY ==
--- NOTE | ~2023-06-02 | CT_ITS ---
EXAMINATION: CT lung screening DATE: 06/02/2023 09:35 INDICATION: Z87.891 - Personal history of nicotine dependence TECHNIQUE: Computed tomography (CT) of the chest was performed without intravenous contrast. Addition al 3D reconstructions utilizing coronal maximum intensity projection (MIP) were performed. Automated exposure control and iterative reconstruction technique were employed. The dose-length product was 64 .17 mGy-cm. COMPARISON: 05/22/2022 FINDINGS: Mild emphysema with unchanged mild biapical pleural-parenchymal scarring new 3 mm nodule in the right upper lobe on series 4, image 37. Couple additional unchanged 3 mm nodules in the superior segment o f the right lower lobe and in the right middle lobe. No pneumonia, pulmonary edema or pleural effusio n. Heart size is normal. Atherosclerotic coronary artery calcification. Unchanged minimal pericardial effusion. Thoracic aorta is normal in caliber. No pathologically enlarged thoracic lymphadenopathy. Cholecystectomy clips at the gallbladder fossa. A few diverticula at the splenic flexure of the colon . Mild thoracic spondylosis with sclerotic bone island at T9. IMPRESSION: 1. Lung-RADS category 2: Benign appearance or behavior. Continue annual screening with noncontrast lo w-dose chest CT in 12 months. Reviewed, dictated and finalized at location L. IMPRESSION: 1. Lung-RADS category 2: Benign appearance or behavior. Continue annual screeni ng with noncontrast low-dose chest CT in 12 months.
--- NOTE | 2023-06-02 12:57 | WPDSIXMINUTE ---
Six Minute Walk Procedure Procedure Performed Pulmonary Stress Test (6 min walk) Six Minute Walk Six Minute Walk: This is a 6 minute walk test. The test was performed and interpreted in accordance with the 2014 ERS/ATS task force guidelines. Findings: The patient's resting room air oxygen saturation measured by pulse oximetry was 94% and heart rate was 88 bpm. Patient ambulated for 396 meters and oxygen saturation remained 93 to 97%. Heart rate at the end of the study was 117 bpm. The patient did not qualify for supplemental oxygen at rest or with ambulation. There are no prior studies for comparison.
--- NOTE | 2023-06-02 12:59 | WPDPFTINT ---
PFT Procedure Performed PFT Procedure Performed Spirometry with Pre/Post Bronchodilator Plethysmography (Lung Vol) Diffusing Cap (DLCO) Flow Vol Loop PFT Interpretation This is a pulmonary function test with pre and post-bronchodilator spirometry, plethysmography and diffusing capacity. The test was performed and results interpreted in accordance with the 2019 and 2005 ATS/ERS Task Force guidelines respectively using the Global Lung Function Initiative-2012 reference equations. Patient demonstrated good effort and cooperation. Reproducibility criteria were met. The quality of the pre bronchodilator spirometry maneuver was Grade A and post bronchodilator spirometry maneuver was Grade A. Findings: Spirometry: There is decreased maximal expiratory airflow at all lung volumes with concave expiratory flow tracing. The contour the inspiratory flow tracing is normal. The pre bronchodilator FVC is 2.15 L, 69% predicted. The pre bronchodilator FEV1 is 1.31 L, 54% predicted. The pre bronchodilator FEV1: FVC ratio 61%. The post bronchodilator FVC is 2.46 L, representing a 14% increase. The post bronchodilator FEV1 is 1.53 L, representing a 17% increase. The post bronchodilator FEV1: FVC ratio 62%. Plethysmography: The total lung capacity is 5.40 L, 104% predicted. The functional residual capacity is 4.07 L, 137% predicted. The residual volume is 3.24 L, 152% predicted. Diffusing capacity: The diffusing capacity unadjusted for hemoglobin and carboxyhemoglobin is 10.9, 51% predicted. The diffusing capacity adjusted for alveolar volume is 3.56, 82% predicted. In comparison to previous pulmonary function testing on 07/01/2018 the post bronchodilator FVC is unchanged from 2.36 L to 2.46 L. The post bronchodilator FEV1 is unchanged from 1.62 L to 1.53 L. The total lung capacity is unchanged from 5.13 L to 5.40 L. The functional residual capacity is increased from 3.38 L to 4.07 L. The residual volume is unchanged from 2.96 L to 3.24 L. The diffusing capacity unadjusted for hemoglobin and carboxyhemoglobin is unchanged from 10.7 to 10.9. The diffusing capacity adjusted for alveolar volume is decreased from 4.38 to 3.56. Impression: There is a moderately severe obstructive abnormality with significant improvement after inhaling a single dose of albuterol. The increase in residual volume is consistent with air trapping from an obstructive abnormality. Hyperinflation is present as demonstrated by the increase in functional residual capacity and is consistent with an obstructive abnormality. The diffusing capacity unadjusted for hemoglobin and carboxyhemoglobin is moderately decreased and normalizes when adjusted for alveolar volume. In comparison to previous pulmonary function testing on 07/01/2018 there has been a greater than anticipated time dependent increase in the functional residual capacity and a greater than anticipated time dependent decrease in the diffusing capacity adjusted for alveolar volume with no significant change in the FVC, FEV1, total lung capacity, residual volume or diffusing capacity unadjusted for hemoglobin and carboxyhemoglobin. Clinical correlation is recommended.
== END 2023-06-02 08:06 | disposition home or self-care (01) ==
LOC: ANHPFT 08:08
PROVIDERS: PCP Family Medicine; Visit Provider Nurse Practitioner Family
DX: J44.9 Chronic obstructive pulmonary disease, unspecified (principal); R06.09 Other forms of dyspnea; Z87.891 Personal history of nicotine dependence; R94.2 Abnormal results of pulmonary function studies; Z12.2 Encounter for screening for malignant neoplasm of respiratory organs
CPT/HCPCS: 71271; 94060; 94618; 94726; 94729

== ENCOUNTER → 2023-10-13 10:16 | Outpatient (CLI) | payer MEDICARE, SELFPAY ==
--- NOTE | ~2023-10-13 | XR_ITS ---
Clinical Indication: Acute bronchitis PA and lateral views of the chest: Comparison: 11/05/2017 Findings: The lungs are clear, without evidence of focal consolidation or pleural effusion. Cardiome diastinal silhouette is within normal limits. Bones and soft tissues are unremarkable. Impression: Normal chest. Reviewed, dictated and finalized at location . RAL OPHTHALMOLOGIST Impression: Normal chest.
== END ==
PROVIDERS: PCP Family Medicine; Visit Provider Nurse Practitioner Adult Health
DX: J42 Unspecified chronic bronchitis (principal); J20.9 Acute bronchitis, unspecified
CPT/HCPCS: 71046

== ENCOUNTER → 2023-12-17 15:08 | Outpatient (CLI) | payer MEDICARE, SELFPAY ==
--- NOTE | ~2023-12-17 | XR_ITS ---
XR thoracic spine 3V DATE: 12/17/2023 15:48 INDICATION: Chronic neck pain, upper thoracic pain. TECHNIQUE: AP, lateral, swimmer views COMPARISON: None FINDINGS: There is osteopenia. Mild levoscoliosis of the thoracolumbar spine. The thoracic pedicles are intact. No thoracic spine fracture or bone destruction or paraspinal soft t issue thickening is detected. There is minimal degenerative spurring of the thoracic spine. IMPRESSION: Osteopenia and minimal degenerative spurring Reviewed, dictated and finalized at location L. LOPER SUPPORT ENGINEER
--- NOTE | ~2023-12-17 | XR_ITS ---
XR hip LT min 2V DATE: 12/17/2023 15:48 INDICATION: Left hip pain TECHNIQUE: AP and lateral views COMPARISON: None FINDINGS: No fracture or dislocation, avascular necrosis or bone destruction. Left hip joint space is well preserved. The symphysis and left sacral iliac joint are intact. IMPRESSION: No significant abnormality of left hip Reviewed, dictated and finalized at location L. L CONSTRUCTION WORKER
--- NOTE | ~2023-12-17 | XR_ITS ---
XR lumbar spine 2-3V DATE: 12/17/2023 15:47 INDICATION: Chronic low back pain radiating to left hip TECHNIQUE: AP, lateral, coned lateral lumbosacral views COMPARISON: None FINDINGS: Osteopenia. Normal alignment of the lumbar spine. No fracture or bone destruction or spondylolisthesis. The inclu ded lower thoracic and lumbar pedicles are intact. There is mild multilevel degenerative disc disease. No spondylolisthesis. The sacroiliac joints are intact. Surgical clips, right upper quadrant, consistent with cholecystectomy. IMPRESSION: Osteopenia Mild multilevel degenerative disc disease Reviewed, dictated and finalized at location L. INATION SPECIALIST
--- NOTE | ~2023-12-17 | XR_ITS ---
. XR_CERV2-3V_CR DATE: 12/17/2023 15:47 INDICATION: Chronic neck pain, increased on the right over past 4 days TECHNIQUE: AP, open-mouth, lateral views COMPARISON: December 17, 2023 thoracic spine including swimmer's view FINDINGS: C7 is not optimally demonstrated on the lateral cervical spine radiograph but is well demon strated on the thoracic spine swimmer's view today. C1 and C2 are normally aligned and the odontoid process is intact. C2-3 and C3-4 interspaces are well preserved. Moderate loss of interspace height at C4-5 with mild retrolisthesis. Moderately severe degenerative disc disease with mild retrolisthesis at C5-6. Uncovertebral joint spurring is noted in the mid and lower cervical spine, most prominent at C5-6. De generative change at the apophyseal joints. No fracture or dislocation or locked facet or prevertebral soft tissue swelling. IMPRESSION: Moderately prominent cervical spondylosis; no fracture or dislocation or locked facet Reviewed, dictated and finalized at Location A. Reviewed, dictated and finalized at location L. ETER IMPRESSION: Moderately prominent cervical spondylosis; no fracture or dislocati on or locked facet
== END ==
PROVIDERS: PCP Physician Assistant; Visit Provider Physician Assistant
DX: M85.88 Other specified disorders of bone density and structure, other site (principal); M54.50 Low back pain, unspecified; M25.552 Pain in left hip; G89.29 Other chronic pain; M54.2 Cervicalgia; M51.36 Other intervertebral disc degeneration, lumbar region; M43.02 Spondylolysis, cervical region
CPT/HCPCS: 72040; 72072; 72100; 73502

== ENCOUNTER 2023-12-18 03:00 | Emergency (ER) | payer MEDICARE, SELFPAY ==
--- NOTE | ~2023-12-18 | CT_ITS ---
Noncontrast CT scan of the cervical spine Technique: Multiple contiguous axial [address] images of the cervical spine were obtained and rec onstructed in 2D sagittal and coronal planes on the acquisition scanner. Dose reduction technique was used on this scan by utilizing automated exposure control, adjustment of the mA and/or kV according to patient size. The dose-length product (DLP) was 371.13 mGy-cm. Clinical History: Pain Findings: No fractures or dislocations. There is straightening of the normal cervical lordosis. Ther e is moderate to advanced degenerative disc narrowing at C4-C5 and C5-C6. There is mild right neural foraminal narrowing at C3-C4 with mild right facet arthropathy. There is probable mild bilateral neur al foraminal narrowing at C4-C5 with mild disc osteophyte complex. There is bilateral neural foramina l narrowing at C5-C6, right worse than left, with disc osteophyte complex and mild facet arthropathy. No prevertebral soft tissue swelling. Impression: No fracture or subluxation of the cervical spine. Degenerative spondylosis, as above. Reviewed, dictated and finalized at [facility]. NCIAL REPORTING ADVISOR Impression: No fracture or subluxation of the cervical spine. Degenerative spondylosis, as above.
--- NOTE | ~2023-12-18 | CT_ITS ---
Noncontrast CT scan of the thoracic spine CLINICAL HISTORY: Back pain TECHNIQUE: Axial noncontrast imaging of the thoracic spine was performed. Sagittal and coronal reform atted images were constructed. Dose reduction technique was used on this scan by utilizing automated exposure control and iterative reconstruction technique. The dose-length product (DLP) was 492.00 mGy -cm. FINDINGS: No fracture or subluxation of the thoracic spine identified. Vertebral bodies maintain norm al height and alignment. Intervertebral disc spaces demonstrate scattered minimal degenerative change . No significant disc bulge or herniation evident in the thoracic spine. No spinal canal stenosis or co rd compression evident. Paravertebral soft tissues are unremarkable. Impression: Minimal degenerative disc changes. Reviewed, dictated and finalized at location M. ESS CLERK Impression: Minimal degenerative disc changes.
--- NOTE | ~2023-12-18 | CT_ITS ---
Clinical Indication: Back pain CT Scan of the Chest with Contrast: Technique: Contiguous sections were acquired throughout the chest after intravenous administration of 100 cc of Omnipaque 350. Dose reduction technique was used on this scan by utilizing automated expos ure control and iterative reconstruction technique. The dose-length product (DLP) was 256.82 mGy-cm. COMPARISON: 06/02/2023 Findings: There is no evidence of any significant mediastinal, hilar or axillary lymphadenopathy. There is no f illing defect in the pulmonary arterial tree to suggest pulmonary embolus. There is no evidence of ao rtic dissection or aneurysm. There is no evidence of pleural or pericardial effusion. The lungs are clear. No pulmonary nodules or infiltrates are noted. Mild edematous change noted. Images through the upper abdomen reveal no abnormalities. Impression: No evidence of pulmonary embolus, aortic dissection, or aortic aneurysm. Mild emphysema. Reviewed, dictated and finalized at [facility]. ITE EDITOR Impression: No evidence of pulmonary embolus, aortic dissection, or aortic aneurysm. Mild emphysema.
[2023-12-18 03:03] VITALS: BP 150/75; PULSE 86; RESP 18; TEMP 36.8; O2SAT 96
--- NOTE | 2023-12-18 04:23 | ECG_ITS ---
Measurements Intervals [place] Rate: 65 P: 77 DE: 178 QRS: 70 QRSD: 90 T: 70 QT: 395 QTc: 411 Interpretive Statements SINUS RHYTHM POSSIBLE LEFT ATRIAL ENLARGEMENT [-0.1mV P WAVE IN V1/V2] OTHERWISE NORMAL ECG COMPARED TO ECG 05/24/2020 12:29:44 NO SIGNIFICANT CHANGES Electronically Signed On 12-18-2023 15:16:05 FORMS DESIGNER by Bhaskar Nath M.D.
--- NOTE | 2023-12-18 04:23 | ED.BACK ---
HPI - Back Pain/Injury General Chief Complaint: Back Pain/Injury Stated Complaint: back pain Time Seen by Provider: 12/18/23 03:16 Source: patient and family Limitations: no limitations History of Present Illness HPI Narrative: Patient is a 68-year-old female presents to the emergency department complaining of back pain. Patient states the pain is been going on for the past 4-5 days, constant, sharp stabbing, present in her mid upper back, also seems to be present in the back upper back, sometimes she has a shooting pain down her right arm that does not go further than the elbow. Patient states that sometimes the pain feels better when she is lying on her right side with pillows pressing on her right shoulder read. Patient denies any history of this pain in the past. Patient denies recent injuries, recent illness, cough, fever, chest pain, difficulty breathing, abdominal pain, nausea, vomiting, diarrhea, urinary incontinence, stool incontinence, history of cancer, use of blood thinners, history of IV drug use, weight loss, numbness, weakness, paresthesias, saddle anesthesia, vision changes, headache. patient went to her primary care physician yesterday was given a shot in her but was told that that would help with the does not seem to be helping much and she was also sent for x-rays she does not know the results of and she was also prescribed baclofen and diclofenac. Related Data Home Medications Medication Instructions Recorded Confirmed aspirin 81 mg tablet,delayed 81 mg PO DAILY 09/27/19 12/17/23 release estradiol 0.5 mg tablet 0.5 mg PO DAILY 08/27/21 12/17/23 progesterone micronized 200 mg 200 mg PO QAM 08/27/21 12/17/23 capsule cetirizine 10 mg tablet (Zyrtec) 10 mg PO DAILY PRN 05/07/23 12/17/23 clindamycin HCl 300 mg capsule 300 mg PO Q8H 12/17/23 12/17/23 Allergies Allergy/AdvReac Type Severity Reaction Status Date / Time tramadol AdvReac Intermediate Other Verified 12/17/23 14:40 oxycodone AdvReac UNABLE TO Verified 12/17/23 14:40 SLEEP Review of Systems Review of Systems: A 10 system review of systems was completed on the patient and is negative except for what is stated in the HPI. Nursing and ancillary documentation was reviewed. [facility] Past Medical History Medical History Adenomatous colon polyp Anxiety disorder, unspecified Cholecystectomy planned Chronic bronchitis with acute exacerbation Chronic RUQ pain Colon cancer screening COVID-19 Depression Elevated glucose Elevated liver enzymes Epigastric pain Fracture of left humerus Gastroparesis GERD without esophagitis High triglycerides Hx of bronchitis Hypertension Nausea Obstructive lung disease Screening, lipid Surgical History Surgical History History of appendectomy lap in 2017 Family History Family History Sibling Diabetes mellitus Hypertension Patient's brother is in good health Acute myocardial infarction Mother Patient's mother is in good health Family history of Alzheimer's disease Father Patient's father is , Onset Age: 63 Other Family history of alcoholism Family history of irritable bowel syndrome Family history of osteoporosis Social History Social History Smoking packs per day: 1 Smoking cigarettes per day: 20.0 Years smoked: 40 Smoking pack-years: 40.00 Smoking status: Current every day smoker Tobacco type: cigarettes Second hand tobacco smoke exposure: No Alcohol intake: current Drinks per week: 10 Alcohol use details: SOCIALLY Substance use: never Substance use type: does not use Lack of Transportation: No Lack of Food: Never True Current Housing: I Have Housing Concerned About Future Housing: No Difficulty Paying Gas/Electric Bills: No Difficulty Paying for Meds: No Currently Unemployed: Decline to Answer Education: High School Diploma/GED Difficulty w/ Childcare or Family Care: No Living arrangements: with family Occupation/Education: occupation 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 Please see the nursing chart for further information. There is no relevant family history pertinent to the presenting complaint. Exam Narrative: CONST: No acute distress. Well nourished. HENMT: Head is normocephalic and atraumatic. Moist mucous membranes. No posterior oropharynx erythema. EYES: No conjunctival icterus, injection, or pallor. PERRL. NECK: No meningeal signs. No carotid bruits on auscultation bilaterally. RESP: Able to speak in full sentences. Normal respiratory effort. CTAB. CARDIO: Regular rate. Regular rhythm. 2+ DP and radial pulses bilaterally. GI: Nondistended. No tenderness to palpation. Soft. : No CVA tenderness to palpation. SKIN: No rashes or lesions noted on exposed skin. NEURO: Oriented x3. Moves all extremities. No focal neurological deficits. Senior Oracle Database Administrator strength is 5/5 bilateral upper extremities. Motor strength is 5/5 in bilateral lower extremities. Sensation intact to light touch throughout all 4 extremities. Negative Spurling's test bilaterally. EXTREM/MSK/BACK: No pedal edema. Mild paracervical and parathoracic muscle spasms on the right. No significant midline tenderness to palpation of the vertebrae or step-offs or deformities. No bony tenderness to palpation throughout all 4 extremities. PSYCH: Normal affect. Course Vital Signs Vital signs: Vital Signs Temperature 98.2 F 12/18/23 03:03 Pulse Rate 86 12/18/23 03:03 Respiratory Rate 18 12/18/23 03:03 Blood Pressure 150/75 H 12/18/23 03:03 Pulse Oximetry 96 12/18/23 03:03 Oxygen Delivery Room Air 12/18/23 03:03 Temperature 98.2 F 12/18/23 03:03 Pulse Rate 86 12/18/23 03:03 Respiratory Rate 18 12/18/23 03:03 Blood Pressure 150/75 H 12/18/23 03:03 Pulse Oximetry 96 12/18/23 03:03 Oxygen Delivery Room Air 12/18/23 03:03 MDM - Back Pain/Injury MDM Narrative Medical decision making narrative: Patient presents with the above complaint. Initial vitals are remarkable for no significant abnormalities. Physical examination as noted above. Plan discussed: Laboratory analysis, EKG, CTA of the chest, CT of the cervical spine without contrast, CT of the thoracic spine without contrast, continues cardiac monitoring, continuous pulse oximetry, diazepam 5 mg p.o., Toradol 15 mg IV push. Patient was reassessed at the bedside. No changes in physical exam. Patient is in no acute distress. The patient has remained stable throughout the entire ED visit. Counseled patient regarding diagnostic results and potential diagnosis. Anticipatory guidance provided. Patient instructed to follow up with PCP within 1 week and neurosurgery in 4-6 weeks if symptoms do not resolve. Patient counseled on: false reassurance from an emergency department evaluation; no current evidence of a medical emergency; return immediately for any new, recurrent, worsening, concerning, or refractory symptoms. Patient prescribed flexeril and norco. Prescription sent to preferred pharmacy. Medications discussed with patient. Additional verbal and printed discharge instructions were given and discussed with the patient. Patient verbally acknowledges understanding of condition and discharge instructions. All questions were answered to the patient's satisfaction. Patient is in agreement with the plan of care. The patient is stable for discharge and was discharged without incident. Differential Diagnosis Differential diagnosis: Likely thoracic back pain and other ( Cervical radiculopathy, musculoskeletal strain, muscle spasms, ACS, pneumonia, aortic dissection.) Medical Records Attestation: I reviewed the patient's medical records. Lab Data Attestation: I reviewed the patient's lab results. Lab results narrative: CBC grossly within normal limits. Comprehensive metabolic panel grossly within normal limits. Lipase of 130. Total CK of 35. Magnesium of 2.1. Troponin is less than 0.012. Rapid COVID /influenza/ RSV PCR testing is negative. 12/18/23 05:09 12/18/23 05:09 Labs: Lab Results 12/18/23 Range/Units 05:09 WBC 8.7 (4.5-10.0) K/mm3 RBC 3.96 L (4.2-5.4) M/mm3 Hgb 12.6 (12.0-15.0) g/dL Hct 39.0 (37.0-47.0) % MCV 98.5 (80-100) fl MCH 31.8 (26-34) pg MCHC 32.3 (32-36) g/dl RDW 12.6 (11.5-14.5) % Plt Count 272 (150-375) k/mm3 MPV 9.8 (7.4-10.4) fl Immature Gran % (Auto) 0.2 (0-0.5) % Neut % (Auto) 49.6 (45.5-73.1) % Lymph % (Auto) 32.3 (18.3-44.2) % [place] % (Auto) 9.0 H (2.6-8.5) % Eos % (Auto) 8.1 H (0-4.4) % Baso % (Auto) 0.8 (0.2-1.2) % Lymph # (Auto) 2.80 (0.9-3.2) K/mm3 [place] # (Auto) 0.8 H (0.1-0.6) K/mm3 Eos # (Auto) 0.7 H (0-0.3) K/mm3 Baso # (Auto) 0.1 (0.0-0.1) K/mm3 Abs Immat Gran (auto) 0.02 (0.00-0.031) K/mm3 Absolute Neuts (auto) 4.3 (1.3-6.7) K/mm3 Absolute Nucleated RBC 0.0 (0.0-0.012) K/mm3 Nucleated RBC % 0.0 (0.0-0.2) % Sodium 138 (137-145) mmol/L Potassium 3.6 (3.4-5.0) mmol/L Chloride 106 (98-107) mmol/L Carbon Dioxide 25 (22-30) mmol/L Anion Gap 7 L (8-16) mmol/L BUN 15 (7-17) mg/dL Creatinine 0.90 (0.7-1.0) mg/dL Estim Creat Clear Calc 49 ml/min Estimated GFR > 60 (59 - ) Glucose 107 (65-110) mg/dL Calcium 9.4 (8.4-10.2) mg/dL Magnesium 2.1 (1.6-2.3) mg/dL Total Bilirubin 0.5 (0.2-1.3) mg/dL AST 35 (14-36) U/L ALT 22 (6-35) U/L Alkaline Phosphatase 113 (38-126) U/L Total Creatine Kinase 35 (30-135) U/L Troponin I < 0.012 (0.000-0.034) ng/mL Total Protein 7.0 (6.3-8.2) g/dL Albumin 3.9 (3.5-5.1) g/dL Lipase 130 (23-300) U/L Influenza A (RT-PCR) Negative (Negative) Influenza B (RT-PCR) Negative (Negative) RSV (RT-PCR) Negative (Negative) SARS-CoV-2 RNA (RT-PCR) Negative (Negative) Imaging Data Attestation: I personally reviewed and interpreted this imaging study as follows: Radiologist's impression: ITS Impressions Cervical Spine CT 12/18/23 06:05 Impression: No fracture or subluxation of the cervical spine. Degenerative spondylosis, as above. Thoracic Spine CT 12/18/23 06:06 Impression: Minimal degenerative disc changes. Chest CTA 12/18/23 06:08 Impression: No evidence of pulmonary embolus, aortic dissection, or aortic aneurysm. Mild emphysema. ECG Data EKG #1: Attestation: I personally reviewed and interpreted this ECG as follows: ECG completion date: 12/18/23 ECG completion time: 05:21 Prior ECG tracings: available for review (05/24/2020) EKG Interpretation: normal rate, sinus rhythm, no ectopy, no ST changes, normal QRS, normal QT, NL axis and no acute changes Discharge Plan Discharge Clinical Impression: Cervical radiculopathy Back pain Qualifiers: Back pain location: thoracic back pain Chronicity: acute Back pain laterality: midline Qualified Code(s): M54.6 - Pain in thoracic spine Patient Disposition: Home, Self-Care Condition: Stable Instructions: Antibiotic Form, Cervical Radiculopathy (ED), Back Pain (ED) Additional Instructions: Stop taking the baclofen and begin taking Flexeril as prescribed. Take diclofenac as prescribed by her primary care physician. For breakthrough pain take the [place] as directed. Return immediately to the emergency department for any new or concerning symptoms As we discussed. Follow-up with your primary care physician as directed. Follow up with Neurosurgery as directed if her symptoms do not improve within 4-6 weeks as you may require further imaging such as MRI. Prescriptions: New hydrocodone-acetaminophen 5-325 mg tablet 1 tablet PO Q6H PRN (Reason: pain) 3 Days Qty: 12 0RF cyclobenzaprine 5 mg tablet 5 mg PO TID PRN (Reason: muscle spasm) Qty: 30 0RF No Action aspirin 81 mg Tablet,Delayed Release (Dr/Ec) 81 mg PO DAILY estradiol 0.5 mg tablet 0.5 mg PO DAILY progesterone micronized 200 mg capsule 200 mg PO QAM cetirizine [Zyrtec] 10 mg tablet 10 mg PO DAILY PRN clindamycin HCl 300 mg capsule 300 mg PO Q8H diclofenac sodium 50 mg tablet,delayed release (DR/EC) 50 mg PO TID PRN (Reason: pain) Qty: 30 0RF baclofen 5 mg tablet 5 mg PO Q8H PRN (Reason: muscle spasm) Qty: 30 0RF albuterol sulfate 90 mcg/actuation HFA aerosol inhaler 1 - 2 puff inhalation Q4-6H PRN (Reason: shortness of breath or wheezing) Qty: 8.5 5RF Spiriva Respimat 2.5 mcg/actuation mist 2 puff inhalation QAM Qty: 4 5RF Follow-up/Referrals: Álvaro Bella MD [Physician] - 1 Month Farshad Clark MD [Primary Care Provider] - 1 Week Time of Disposition: 06:29
[2023-12-18] MEDS: KETOROLAC 15 MG/ML VIAL (*BKC) IV PUSH (05:00)
[2023-12-18] MEDS: diazePAM (*CRX) 5 MG TABLET PO (05:00)
[2023-12-18 05:17] LABS: Basophils Absolute Auto 0.1 K/mm3 (0.0-0.1); Basophils Percent Auto 0.8 % (0.2-1.2); Eosinophils Absolute Auto 0.7 K/mm3 (0-0.3); Eosinophils Percent Auto 8.1 % (0-4.4); Hemoglobin 12.6 g/dL (12.0-15.0); Immature Granulocyte Absolute 0.02 K/mm3 (0.00-0.031); Immature Granulocyte Percent A 0.2 % (0-0.5); Lymphocytes Percent Auto 32.3 % (18.3-44.2); Mean Corpuscular HGB Conc 32.3 g/dl (32-36); Mean Corpuscular Hemoglobin 31.8 pg (26-34); Mean Corpuscular Volume 98.5 fl (80-100); Mean Platelet Volume 9.8 fl (7.4-10.4); Monocytes Absolute Auto 0.8 K/mm3 (0.1-0.6); Neutrophils Absolute Auto 4.3 K/mm3 (1.3-6.7); Neutrophils Percent Auto 49.6 % (45.5-73.1); Platelet Count Result 272 k/mm3 (150-375); Red Blood Count 3.96 M/mm3 (4.2-5.4); Red Cell Distribution Width 12.6 % (11.5-14.5); White Blood Count 8.7 K/mm3 (4.5-10.0)
[2023-12-18 05:32] LABS: Alanine Aminotransferase 22 U/L (6-35); Albumin Level 3.9 g/dL (3.5-5.1); Alkaline Phosphatase 113 U/L (38-126); Anion Gap 7 mmol/L (8-16); Aspartate Amino Transferase 35 U/L (14-36); Bilirubin,Total 0.5 mg/dL (0.2-1.3); Blood Urea Nitrogen 15 mg/dL (7-17); Calcium 9.4 mg/dL (8.4-10.2); Carbon Dioxide 25 mmol/L (22-30); Chloride 106 mmol/L (98-107); Creatine Kinase 35 U/L (30-135); Estimated CRCL calculation 49 ml/min; Estimated Glomerular Filt Rate > 60; Glucose 107 mg/dL (65-110); Lipase 130 U/L (23-300); Magnesium 2.1 mg/dL (1.6-2.3); Potassium 3.6 mmol/L (3.4-5.0); Sodium 138 mmol/L (137-145)
[2023-12-18 05:42] LABS: Troponin I < 0.012 ng/mL (0.000-0.034)
[2023-12-18 05:54] LABS: Influenza A QL RT-PCR Negative (Negative); Influenza B QL RT-PCR Negative (Negative); RSV RNA, RT-PCR Negative (Negative); SARS-CoV-2 RNA PCR Negative (Negative)
[2023-12-18] MEDS: HYDROcodone/acetaminophen (*CRX) 5-325 MG TABLET 1 TAB PO ×2 (06:13→06:58)
[2023-12-18 06:28] VITALS: BP 174/80; PULSE 88; RESP 15; O2SAT 100
== END 2023-12-18 06:59 | disposition home or self-care (01) ==
PROVIDERS: Emergency Provider Student in an Organized Health Care Education/Training Program; PCP Family Medicine
DX: M47.22 Other spondylosis with radiculopathy, cervical region (principal); M54.6 Pain in thoracic spine; J44.9 Chronic obstructive pulmonary disease, unspecified; I10 Essential (primary) hypertension; E78.1 Pure hyperglyceridemia; K31.84 Gastroparesis; K21.9 Gastro-esophageal reflux disease without esophagitis; F17.210 Nicotine dependence, cigarettes, uncomplicated; Z86.16 Personal history of COVID-19; Z86.010 Personal history of colon polyps; Z79.82 Long term (current) use of aspirin; R94.31 Abnormal electrocardiogram [ECG] [EKG]; Z20.822 Contact with and (suspected) exposure to COVID-19
CPT/HCPCS: 36415; 71275; 72125; 72128; 80053; 82550; 83690; 83735; 84484; 85025; 87637; 93005; 96374; 99284; A9270; J1885; Q9967

== ENCOUNTER 2024-01-07 16:31 | Outpatient (CLI) | payer MEDICARE, SELFPAY ==
--- NOTE | ~2024-01-07 | DEXA_ITS ---
Bone Density Report Name: KEMAR JACOBO Age: 68 Sex: Female Ethnicity: White Date of : 1955 Indication: postmenopausal; screening for osteoporosis; Referring Provider: JONATHAN MORENO Study: Bone densitometry was performed. Exam Date: January 07, 2024 Accession number: [id number] Bone Density: Region BMD T-score Z-score Classification AP Spine(L1-L4) 1.139 0.8 2.7 Normal Femoral Neck (Left) 0.610 -2.2 -0.6 Osteopenia Total Hip (Left) 0.816 -1.0 0.3 Normal Femoral Neck (Right) 0.650 -1.8 -0.2 Osteopenia Total Hip (Right) 0.799 -1.2 0.1 Osteopenia Total Hip Mean 0.808 -1.1 0.2 Osteopenia World Health Organization criteria for BMD impression classify patients as: Normal (T-score at or above -1.0), Osteopenia (T-score between -1.0 and -2.5), or Osteoporosis (T-score at or below -2.5). 10-year Fracture Risk: FRAX not reported because: Treated for osteoporosis Clinical Information Provided by Patient: Smokes Is being treated for osteoporosis Has used the following medications: Vitamin D Patient maximum height was 65 Menopause Age: 52 No regular weight bearing exercise Does not regularly consume dairy products Drinks caffeinated beverages Onset of menses at age 15 Number of children 2 Impression: The patient has low bone mass, based on the Left Femoral Neck T-score. The patient has risk factors, including: smoking. Discussion: It is important to ask patients whether they are taking their medications and to encourage continued and appropriate compliance with their osteoporosis therapies to reduce fracture risk. It is also important to review their risk factors and encourage appropriate calcium and vitamin D intakes, exercise, fall prevention and other lifestyle measures. Follow-Up: Consider a repeat BMD and Vertebral Fracture Assessment (VFA) exam in 2 years or sooner if medically necessary, to reassess this patient's status. Reported by: AMEE on 01/07/2024 4:21:00 PM. Reviewed, dictated and finalized at location AShannan GILLIS
--- NOTE | ~2024-01-07 | MR_ITS ---
EXAMINATION: MR cervical spine wo con DATE: 01/07/2024 17:07 INDICATION: Other cervical disc degeneration, unspecified. TECHNIQUE: Magnetic resonance imaging (MRI) of the cervical spine was performed without intravenous c ontrast. Sequences included sagittal T2-weighted FSE, sagittal T2-weighted FS FSE, sagittal T1-weight ed FSE, axial MERGE, and axial T2-weighted FSE. COMPARISON: CT cervical spine 12/18/2023 FINDINGS: Bone alignment is normal. Vertebral body heights are normal. There is moderately decreased disc height at C4-C5 and severely decreased disc height at C5-C6. The spinal cord signal intensity is normal. The following disc levels are specifically discussed: C2-C3: The disc does not extend beyond the endplate margin. There is no uncovertebral joint osteoarth ritis. There is mild bilateral facet joint osteoarthritis. There is no neural foraminal stenosis. The re is no central canal stenosis. C3-C4: There is a central extrusion. There is mild bilateral uncovertebral joint osteoarthritis. Ther e is severe right and moderate left facet joint osteoarthritis. There is moderate right and mild left neural foraminal stenosis. There is mild central canal stenosis. C4-C5: The disc is bulging. There is severe bilateral uncovertebral joint osteoarthritis. There is mi ld bilateral facet joint osteoarthritis. There is moderate right and mild left neural foraminal steno sis. There is mild central canal stenosis. C5-C6: The disc is bulging. There is severe bilateral uncovertebral joint osteoarthritis. There is mi ld bilateral facet joint osteoarthritis. There is moderate right and mild left neural foraminal steno sis. There is mild central canal stenosis. C6-C7: The disc does not extend beyond the endplate margin. There is mild bilateral uncovertebral umair nt osteoarthritis. There is mild bilateral facet joint osteoarthritis. There is no neural foraminal s tenosis. There is no central canal stenosis. C7-T1: The disc does not extend beyond the endplate margin. There is no uncovertebral joint osteoarth ritis. There is mild right and moderate left facet joint osteoarthritis. There is mild left neural fo raminal stenosis. There is no central canal stenosis. IMPRESSION: 1. Severe cervical spondylosis. Reviewed, dictated and finalized at location E. 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
== END 2024-01-07 16:32 | disposition home or self-care (01) ==
PROVIDERS: PCP Family Medicine; Visit Provider Physician Assistant
DX: M50.30 Other cervical disc degeneration, unspecified cervical region (principal); M43.02 Spondylolysis, cervical region; M85.89 Other specified disorders of bone density and structure, multiple sites; Z78.0 Asymptomatic menopausal state
CPT/HCPCS: 72141; 77080

== ENCOUNTER 2024-01-13 10:57 | Outpatient (CLI) | payer MEDICARE, SELFPAY ==
--- NOTE | ~2024-01-13 | XR_ITS ---
Right Shoulder Technique: AP and scapular Y views were obtained. Clinical History: Pain Findings: No fracture or dislocation is seen. Osseous alignment is anatomic. The glenohumeral and acr omioclavicular joint spaces are preserved. Soft tissues are unremarkable. Impression: Unremarkable right shoulder radiographs. Reviewed, dictated and finalized at [facility]. Impression: Unremarkable right shoulder radiographs.
== END 2024-01-13 10:58 ==
LOC: MICIMG 10:59
PROVIDERS: PCP Family Medicine; Visit Provider Physician Assistant
DX: M25.511 Pain in right shoulder (principal)
CPT/HCPCS: 73030

== ENCOUNTER 2024-04-28 10:47 | Outpatient (CLI) | payer MEDICARE, SELFPAY ==
--- NOTE | ~2024-04-28 | MM_ITS ---
EXAMINATION: MM screening [facility] BI w alana HISTORY: Screening mammogram TECHNIQUE: Craniocaudal and mediolateral oblique 3-D tomosynthesis images were obtained and synthetic 2-D images were generated. CAD analysis was submitted and interpreted. COMPARISON: 12/23/2022, 08/21/2021, 08/10/2020 BREAST PARENCHYMAL COMPOSITION:Dense: The breasts are heterogeneously dense, which may obscure small masses. FINDINGS: No suspicious mass, calcification, or architectural distortion are identified in either alee ast to suggest malignancy. There has been no suspicious interval change. IMPRESSION: No mammographic evidence of malignancy. Recommend routine screening mammography in one year. BI-RADS Category 1: Negative Reviewed, dictated and finalized at location .
== END 2024-04-28 10:48 ==
LOC: MICIMG 10:47
PROVIDERS: PCP Obstetrics & Gynecology Gynecology; Visit Provider Obstetrics & Gynecology Gynecology
DX: Z12.31 Encounter for screening mammogram for malignant neoplasm of breast (principal)
CPT/HCPCS: 77063; 77067

== ENCOUNTER 2024-06-28 13:49 | Outpatient (CLI) | payer MEDICARE, SELFPAY ==
--- NOTE | ~2024-06-28 | XR_ITS ---
EXAMINATION: XR lumbar spine 6V w bending DATE: 06/28/2024 14:13 INDICATION: Radiculopathy, lumbar region. TECHNIQUE: 7 views of lumbar spine including standing views were obtained. COMPARISON: Lumbar spine radiographs 12/17/2023 FINDINGS: There is 4 degrees levocurvature of thoracolumbar spine. Vertebral body heights are normal. There are Schmorl's nodes at multiple levels. There is mildly decreased disc height at L1-L2, L2-L3, L3-L4, and L5-S1. There is no abnormal motion with flexion or extension. There is multilevel facet j oint osteoarthritis, severe in lower lumbar spine. There are surgical clips in right abdomen. IMPRESSION: 1. Mild lumbar spondylosis. Reviewed, dictated and finalized at location A. IMPRESSION: 1. Mild lumbar spondylosis.
== END 2024-06-28 13:50 ==
LOC: MICIMG 13:50
PROVIDERS: PCP Family Medicine; Visit Provider Family Medicine
DX: M54.16 Radiculopathy, lumbar region (principal); M43.06 Spondylolysis, lumbar region
CPT/HCPCS: 72114

== ENCOUNTER 2024-08-05 08:41 | Outpatient (CLI) | payer MEDICARE, SELFPAY ==
--- NOTE | ~2024-08-05 | MR_ITS ---
MRI of the lumbar spine Clinical History: Spondylosis, radiculopathy Technique: Axial T2-weighted images, and sagittal T1-weighted, T2-weighted, and T2 fat-sat images wer e acquired. Findings: There is no fracture or subluxation of the lumbar spine. Vertebral bodies maintain normal h eight and alignment. No bone marrow signal abnormality seen. At L1-L2, there is moderate degenerative disc narrowing. No disc bulge or herniation. No spinal canal stenosis or neural foraminal narrowing. At L2-L3, there is mild degenerative disc narrowing. No significant disc bulge or herniation. There i s mild facet arthropathy. No central canal stenosis or neural foraminal narrowing. At L3-L4, there is mild degenerative disc narrowing with minimal disc bulge and moderate to advanced facet arthropathy. No central canal stenosis or neural foraminal narrowing. At L4-L5, there is mild diffuse disc bulge and moderate facet arthropathy. No central canal stenosis. There is mild to moderate left neural foraminal narrowing, and moderate to advanced right neural for aminal narrowing. At L5-S1, there is minimal disc bulge with advanced facet arthropathy. No central canal stenosis. The re is moderate to advanced left neural foraminal narrowing, and moderate right neural foraminal narro wing. Paravertebral soft tissues are unremarkable. Impression: Moderate degenerative spondylosis, as detailed above, with multilevel neural foraminal narrowing. Reviewed, dictated and finalized at [facility]. Impression: Moderate degenerative spondylosis, as detailed above, with multilevel neural fo raminal narrowing.
== END 2024-08-05 08:42 | disposition home or self-care (01) ==
PROVIDERS: PCP Family Medicine; Referring Provider Pain Medicine Pain Medicine; Visit Provider Family Medicine
DX: M47.27 Other spondylosis with radiculopathy, lumbosacral region (principal); M48.061 Spinal stenosis, lumbar region without neurogenic claudication
CPT/HCPCS: 36415; 72148; 82040; 82310

== ENCOUNTER 2024-09-09 10:03 | Outpatient (CLI) | payer MEDICARE, SELFPAY ==
--- NOTE | ~2024-09-09 | XR_ITS ---
EXAMINATION: XR_[id number]_CR DATE: 09/09/2024 10:23 INDICATION: Pleurodynia. Fall. TECHNIQUE: A frontal view of the chest and 2 views on 3 radiographs of the right ribs and 2 views on 3 radiographs of the left ribs were obtained. COMPARISON: Chest 2 views 10/13/2023 FINDINGS: There is mild atelectasis at right lung base. No pleural effusion or pneumothorax. The hear t size is normal. Surgical clips in the right upper quadrant are likely from cholecystectomy. There a re fractures of right eighth-10th ribs. IMPRESSION: 1. Fractures of right eighth-10th ribs. Reviewed, dictated and finalized at location A. 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
== END 2024-09-09 10:04 | disposition home or self-care (01) ==
PROVIDERS: PCP Family Medicine; Visit Provider Nurse Practitioner Adult Health
DX: S22.41XA Multiple fractures of ribs, right side, initial encounter for closed fracture (principal); X58.XXXA Exposure to other specified factors, initial encounter
CPT/HCPCS: 71111

== ENCOUNTER 2024-09-11 06:21 | Emergency (ER) | payer MEDICARE, SELFPAY ==
--- NOTE | ~2024-09-11 | XR_ITS ---
Portable chest x-ray Comparison: 10/13/2023 Clinical History: Shortness of breath, rib fracture Findings: There are minimal bilateral pleural effusions. Cardiomediastinal silhouette is stable. Th ere is fracture of the right seventh rib laterally. Impression: Minimal bilateral pleural effusions. Lateral right seventh rib fracture. Reviewed, dictated and finalized at [facility]. CRINOLOGY SPECIALIST Impression: Minimal bilateral pleural effusions. Lateral right seventh rib fracture.
[2024-09-11 06:25] VITALS: BP 152/72; PULSE 112; RESP 16; TEMP 36.4; O2SAT 93
--- NOTE | 2024-09-11 07:12 | ED.GENADULT ---
HPI - General Adult General Chief complaint: Unspecified Stated complaint: Fx ribs;in pain Time Seen by Provider: 09/11/24 06:53 History of Present Illness HPI narrative: 68-year-old female presenting to the emergency department for evaluation for rib pain after having a ground level fall on . Patient states she did have x-rays showing multiple rib fractures. Patient has been taking Tylenol ibuprofen. Patient reports emergency department complaining uncontrolled pain with increased abdominal pain and nausea. Patient does have a history gastritis. Patient has been taking ibuprofen for pain control. Related Data Home Medications Medication Instructions Recorded Confirmed aspirin 81 mg tablet,delayed 81 mg PO DAILY 09/27/19 06/23/24 release estradiol 0.5 mg tablet 0.5 mg PO DAILY 08/27/21 06/23/24 progesterone micronized 200 mg 200 mg PO QAM 08/27/21 06/23/24 capsule cetirizine 10 mg tablet (Zyrtec) 10 mg PO DAILY PRN Allergic 05/07/23 06/23/24 Symptoms Allergies Allergy/AdvReac Type Severity Reaction Status Date / Time tramadol AdvReac Intermediate Other Verified 09/11/24 06:33 amitriptyline AdvReac Mild Photosensit Verified 09/11/24 06:33 ivity oxycodone AdvReac UNABLE TO Verified 09/11/24 06:33 SLEEP Review of Systems Review of Systems: All systems reviewed & are unremarkable except as noted in HPI and below PMFSH Past Medical History Medical History (Updated 09/11/24 @ 08:27 by Marvin Sow MD) Adenomatous colon polyp Anxiety disorder, unspecified Cholecystectomy planned Chronic bronchitis with acute exacerbation Chronic RUQ pain Colon cancer screening COVID-19 Depression Elevated glucose Elevated liver enzymes Epigastric pain Fracture of left humerus Gastroparesis GERD without esophagitis High triglycerides Hx of bronchitis Hypertension Lumbar back pain with radiculopathy affecting lower extremity Nausea Obstructive lung disease Rib pain Screening, lipid Surgical History Surgical History History of appendectomy lap in 2017 Family History Family History Sibling Diabetes mellitus Hypertension Patient's brother is in good health Acute myocardial infarction Mother Patient's mother is in good health Family history of Alzheimer's disease Father Patient's father is , Onset Age: 63 Other Family history of alcoholism Family history of irritable bowel syndrome Family history of osteoporosis Social History Social History Smoking packs per day: 1 Smoking cigarettes per day: 20.0 Years smoked: 40 Smoking pack-years: 40.00 Smoking status: Current every day smoker Tobacco type: cigarettes Second hand tobacco smoke exposure: No Alcohol intake: current Drinks per week: 10 Alcohol use details: SOCIALLY Substance use: never Substance use type: does not use Lack of Transportation: No Lack of Food: Never True Current Housing: I Have Housing Concerned About Future Housing: No Difficulty Paying Gas/Electric Bills: No Difficulty Paying for Meds: No Currently Unemployed: Decline to Answer Education: High School Diploma/GED Difficulty w/ Childcare or Family Care: No Living arrangements: with family Occupation/Education: occupation 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 EYES: PERRLA/EOMI, conjunctivae clear. NOSE: Normal no drainage EARS:TMS clear with good light reflex. THROAT: Pharynx clear, no exudate. NECK: Supple. No adenopathy, no masses. RESPIRATORY: Airway patent, respirations nonlabored. Clear to auscultation bilaterally, no rales, rhonchi, wheezing. CARDIOVASCULAR: Regular rate and rhythm without murmurs rubs or gallops. ABDOMINAL: Soft, nontender, nondistended, normal bowel sounds MUSCULOSKELETAL: Moves all extremities. Strength/ROM intact, No edema, No calf tenderness. NEURO: Alert. Cranial nerves II through XII intact. Good gait. Good coordination SKIN: Warm, dry. Normal Color Course Vital Signs Vital signs: Vital Signs Temperature 97.6 F 09/11/24 06:25 Pulse Rate 112 H 09/11/24 06:25 Respiratory Rate 16 09/11/24 06:25 Blood Pressure 152/72 H 09/11/24 06:25 Pulse Oximetry 93 09/11/24 06:25 Oxygen Delivery Room Air 09/11/24 06:25 Temperature 97.6 F 09/11/24 06:25 Pulse Rate 100 09/11/24 08:05 Respiratory Rate 17 09/11/24 08:05 Blood Pressure 159/68 H 09/11/24 08:05 Pulse Oximetry 94 09/11/24 08:05 Oxygen Delivery Room Air 09/11/24 06:25 Medical Decision Making MDM Narrative Medical decision making narrative: 68-year-old female present to the emergency department for evaluation for worsening rib pain. Patient has been taking Tylenol and ibuprofen for pain control. Patient's pain was controlled emergency department. Patient will be discharged home with omeprazole for suspected gastritis. Patient was provided incentive spirometer. Patient was also provided [place] for additional pain control. All questions concerns were addressed and patient was comfortable the plan for discharge and close follow-up. Patient was encouraged close follow-up with her primary care physician. Differential Diagnosis Differential Diagnosis: Pneumonia, pneumothorax, rib fracture Vital Signs Vital Signs: Vital Signs Temperature 97.6 F 09/11/24 06:25 Pulse Rate 112 H 09/11/24 06:25 Respiratory Rate 16 09/11/24 06:25 Blood Pressure 152/72 H 09/11/24 06:25 Pulse Oximetry 93 09/11/24 06:25 Oxygen Delivery Room Air 09/11/24 06:25 Temperature 97.6 F 09/11/24 06:25 Pulse Rate 100 09/11/24 08:05 Respiratory Rate 17 09/11/24 08:05 Blood Pressure 159/68 H 09/11/24 08:05 Pulse Oximetry 94 09/11/24 08:05 Oxygen Delivery Room Air 09/11/24 06:25 Lab Data Lab results reviewed: Yes I reviewed the patient's lab results. Imaging Data Radiologist's impression: Impressions Chest X-Ray 09/11/24 07:27 Impression: Minimal bilateral pleural effusions. Lateral right seventh rib fracture. Discharge Plan Discharge Clinical Impression: Closed rib fracture, Gastritis Patient Disposition: Home, Self-Care Condition: Stable Instructions: Antibiotic Form Additional Instructions: Incentive spirometer as directed. Tylenol for pain control. Replace the Tylenol with [place] as needed for additional pain control. Do not take Tylenol and [place] at the same time is both contain acetaminophen. Omeprazole as directed for the next 14 days to decrease your stomach acid. Have close follow-up with your primary care physician. If you have any worsening symptoms then please call or return to the emergency department. Prescriptions: New ondansetron 4 mg tablet,disintegrating 4 mg PO Q8H PRN (Reason: nausea and vomiting) Qty: 14 0RF hydrocodone-acetaminophen 5-325 mg tablet 1 tablet PO Q12H PRN (Reason: pain) Qty: 14 0RF omeprazole 20 mg tablet,delayed release (DR/EC) 20 mg PO DAILY 14 Days Qty: 14 0RF No Action aspirin 81 mg Tablet,Delayed Release (Dr/Ec) 81 mg PO DAILY estradiol 0.5 mg tablet 0.5 mg PO DAILY progesterone micronized 200 mg capsule 200 mg PO QAM cetirizine [Zyrtec] 10 mg tablet 10 mg PO DAILY PRN (Reason: Allergic Symptoms) Anoro Ellipta 62.5-25 mcg/actuation blister with device 1 inh inhalation DAILY 90 Days Qty: 180 3RF albuterol sulfate 90 mcg/actuation HFA aerosol inhaler 1 - 2 puff inhalation Q4-6H PRN (Reason: shortness of breath or wheezing) 90 Days Qty: 25.5 1RF duloxetine 20 mg capsule,delayed release(DR/EC) 20 mg PO DAILY Qty: 90 1RF amitriptyline 25 mg tablet 25 mg PO QHS Qty: 30 0RF alprazolam [Xanax] 0.5 mg tablet 0.5 mg PO BID PRN (Reason: anxiety) Qty: 2 0RF Follow-up/Referrals: Farshad Clark MD [Primary Care Provider] -
[2024-09-11 07:22] VITALS: BP 147/94; PULSE 81; RESP 15; O2SAT 94
[2024-09-11] MEDS: ONDANSETRON INJ 4 MG/2 ML VIAL IV PUSH (07:27)
[2024-09-11] MEDS: MORPHINE SULFATE (*CRX) 2 MG/ML INJ IV PUSH (07:27)
[2024-09-11] MEDS: PANTOPRAZOLE SODIUM IV 40 MG VIAL IV PUSH (07:27)
[2024-09-11] MEDS: CYCLOBENZAPRINE HCL 10 MG TABLET PO (07:27)
[2024-09-11] MEDS: FAMOTIDINE 20 MG/2 ML VIAL IV PUSH (07:28)
[2024-09-11 08:05] VITALS: BP 159/68; PULSE 100; RESP 17; O2SAT 94
[2024-09-11] MEDS: HYDROcodone/acetaminophen (*CRX) 5-325 MG TABLET 1 TAB PO (08:18)
== END 2024-09-11 08:46 | disposition home or self-care (01) ==
PROVIDERS: Emergency Provider Emergency Medicine; PCP Family Medicine
DX: S22.31XA Fracture of one rib, right side, initial encounter for closed fracture (principal); K29.70 Gastritis, unspecified, without bleeding; I10 Essential (primary) hypertension; K31.84 Gastroparesis; K21.9 Gastro-esophageal reflux disease without esophagitis; F17.210 Nicotine dependence, cigarettes, uncomplicated; Z86.16 Personal history of COVID-19; Z86.0100 Personal history of colon polyps, unspecified; J44.9 Chronic obstructive pulmonary disease, unspecified; W01.190A Fall on same level from slipping, tripping and stumbling with subsequent striking against furniture, initial encounter
CPT/HCPCS: 71045; 96374; 96375; 99284; A9270; J2270; J2405; J2470

== ENCOUNTER 2024-10-08 07:00 | Observation (INO) | payer MEDICARE, SELFPAY ==
[2024-10-08] VITALS (24 sets, daily range): BP systolic 125–149; BP diastolic 50–79; PULSE 77–120; RESP 11–20; TEMP 36.6–37.2; O2SAT 86–100; BMI 20.5
--- NOTE | ~2024-10-08 | XR_ITS ---
EXAMINATION: XR chest 1V portable DATE: 10/08/2024 07:29 INDICATION: Right abdominal pain. TECHNIQUE: A single frontal view of the chest was obtained. COMPARISON: Chest single view 09/11/2024, chest CT 12/18/2023 FINDINGS: There is no pneumonia, pleural effusion, or pneumothorax. The heart size is normal. Surgica l clips in the right upper quadrant are likely from cholecystectomy. There is an old healed right rib fracture. IMPRESSION: 1. No acute cardiopulmonary disease. Reviewed, dictated and finalized at location A. GRATION ATTORNEY
--- NOTE | ~2024-10-08 | CT_ITS ---
EXAMINATION: CTA chest PE abdomen pel DATE: 10/08/2024 10:36 INDICATION: Shortness of breath. TECHNIQUE: Computed tomography angiography (CTA) of the chest was performed with 100 mL Omnipaque-350 intravenous contrast timed to evaluate the pulmonary arteries. Coronal maximum intensity projection 3D-reconstructions were created by the technologist. Computed tomography (CT) of the abdomen and pelv is was performed with intravenous contrast. Automated exposure control and iterative reconstruction t echnique were employed. The dose-length product was 335.00 mGy-cm. COMPARISON: Chest CT 12/18/2023 FINDINGS: CTA chest: There is a small right pneumothorax. There is mild emphysema. There is mild scarring at th e lung apices. There are healing fractures of the right eighth, ninth, and 10th ribs. A bone fragment of the right 10th rib protrudes into the right lung lower lobe where there are airspace opacities, c onsistent with laceration. No pleural effusion. The heart size is normal. There are coronary artery c alcifications. There is a trace pericardial effusion. There is no pulmonary embolus. CT abdomen and pelvis: The liver is normal. There are changes of cholecystectomy. The spleen, pancrea s, adrenal glands, and kidneys are normal. There is diverticulosis of the colon without evidence of d iverticulitis. There is wall thickening of the ascending and transverse colon. There are no pathologi ignacio enlarged lymph nodes. There is no free intraperitoneal fluid. There is mild lumbar spondylosis. IMPRESSION: 1. Healing right rib fractures with right lung lower lobe laceration and small right pneumothorax. 2. Mild emphysema. 3. Wall thickening of the ascending and transverse colon, consistent with edema versus colitis. 4. No pulmonary embolus. Reviewed, dictated and finalized at location A. RONMENTAL SERVICES WORKER
--- NOTE | 2024-10-08 07:08 | ECG_ITS ---
Test Date: 2024-10-08 07:12:47 Measurements Intervals [place] Rate: 120 P: 76 CO: 146 QRS: 75 QRSD: 70 T: 77 QT: 277 QTc: 391 Interpretive Statements SINUS TACHYCARDIA WITH FREQUENT SUPRAVENTRICULAR PREMATURE COMPLEXES ABNORMAL RHYTHM ECG No previous ECG available for comparison Electronically Signed On 10-08-2024 14:45:18 COMMUNICATIONS SCIENTIST by Denilson Rudd M.D.
[2024-10-08 07:38] LABS: Alanine Aminotransferase 141 U/L (6-35); Albumin Level 4.3 g/dL (3.5-5.1); Alkaline Phosphatase 223 U/L (38-126); Anion Gap 7 mmol/L (4-12); Aspartate Amino Transferase 87 U/L (14-36); Bilirubin,Total 0.7 mg/dL (0.2-1.3); Blood Urea Nitrogen 16 mg/dL (7-17); Calcium 9.5 mg/dL (8.4-10.2); Carbon Dioxide 25 mmol/L (22-30); Chloride 101 mmol/L (98-107); Estimated Glomerular Filt Rate 50; Glucose 163 mg/dL (65-110); Lipase 89 U/L (23-300); Potassium 4.4 mmol/L (3.4-5.0); Sodium 133 mmol/L (137-145)
[2024-10-08 07:43] LABS: Basophils Absolute Auto 0.1 K/mm3 (0.0-0.1); Basophils Percent Auto 0.9 % (0.2-1.2); Eosinophils Absolute Auto 0.7 K/mm3 (0-0.3); Eosinophils Percent Auto 6.7 % (0-4.4); Hematocrit 42.4 % (37.0-47.0); Hemoglobin 14.1 g/dL (12.0-15.0); Immature Granulocyte Absolute 0.04 K/mm3 (0.00-0.031); Immature Granulocyte Percent A 0.4 % (0-0.5); Lymphocytes Absolute Auto 2.89 K/mm3 (0.9-3.2); Lymphocytes Percent Auto 27.4 % (18.3-44.2); Mean Corpuscular HGB Conc 33.3 g/dl (32-36); Mean Corpuscular Hemoglobin 32.1 pg (26-34); Mean Corpuscular Volume 96.6 fl (80-100); Mean Platelet Volume 9.5 fl (7.4-10.4); Monocytes Absolute Auto 1.6 K/mm3 (0.1-0.6); Monocytes Percent Auto 14.9 % (2.6-8.5); Neutrophils Absolute Auto 5.3 K/mm3 (1.3-6.7); Neutrophils Percent Auto 49.7 % (45.5-73.1); Platelet Count Result 341 k/mm3 (150-375); Red Blood Count 4.39 M/mm3 (4.2-5.4); Red Cell Distribution Width 12.1 % (11.5-14.5); White Blood Count 10.6 K/mm3 (4.5-10.0)
[2024-10-08 07:46] LABS: Troponin I < 0.012 ng/mL (0.000-0.034)
--- NOTE | 2024-10-08 09:27 | ED.ABDPAIN ---
HPI - Abdominal Pain General Chief Complaint: Abdominal Pain Stated Complaint: right sided abdominal pain Time Seen by Provider: 10/08/24 08:47 Source: patient and family () Mode of arrival: ambulatory Limitations: no limitations History of Present Illness HPI narrative: patient presents with right-sided abdominal pain. Started acutely the past 24 hours, Essentially while she was at rest. Patient has been less active recently after a fall 4 weeks ago during which she broke 2 ribs. This pain actually been getting better and she had not even is been needing to take any of her analgesic medications in the last few weeks but then yesterday the pain increased. She has a history of IBS and she had been having constipation at 1st and then started having diarrhea. No recent antibiotics. History of cholecystectomy and appendectomy. She has had occasional cough productive of scant phlegm and with this feels some shortness of breath and chest pain. She has a history of COPD. She denies any fevers or chills. She has been nauseated but no vomiting. Her last oral intake was some toast this morning but she denies having an appetite. She has not noticed any bloody stool Although she does intermittently have bright red blood per rectum which has been attributed to hemorrhoids and previously acknowledged in worked up by her Ob Gyne doctor [facility]. She denies any dysuria or hematuria.. Not on any anticoagulation, only 81 mg aspirin daily. Related Data Home Medications Medication Instructions Recorded Confirmed aspirin 81 mg tablet,delayed 81 mg PO DAILY 09/27/19 10/08/24 release estradiol 0.5 mg tablet 0.5 mg PO QHS 08/27/21 10/08/24 progesterone micronized 200 mg 200 mg PO QHS 08/27/21 10/08/24 capsule duloxetine 20 mg capsule,delayed 20 mg PO QHS 10/08/24 10/08/24 release Allergies Allergy/AdvReac Type Severity Reaction Status Date / Time tramadol AdvReac Intermediate Other Verified 10/08/24 07:25 amitriptyline AdvReac Mild Photosensit Verified 10/08/24 07:25 trevor [facility] Past Medical History Medical History (Updated 10/10/24 @ 17:31 by Yumi Dobson MD) Adenomatous colon polyp Anxiety disorder, unspecified Cholecystectomy planned Chronic bronchitis with acute exacerbation Chronic RUQ pain Colon cancer screening COPD (chronic obstructive pulmonary disease) COVID-19 Depression Elevated glucose Elevated liver enzymes Epigastric pain Fracture of left humerus Gastroparesis GERD without esophagitis High triglycerides Hx of bronchitis Hypertension IBS (irritable bowel syndrome) Lumbar back pain with radiculopathy affecting lower extremity Nausea Obstructive lung disease Rib pain Screening, lipid Surgical History Surgical History History of appendectomy lap in 2017 History of cholecystectomy Family History Family History Sibling Diabetes mellitus Hypertension Patient's brother is in good health Acute myocardial infarction Mother Patient's mother is in good health Family history of Alzheimer's disease Father Patient's father is , Onset Age: 63 Other Family history of alcoholism Family history of irritable bowel syndrome Family history of osteoporosis Social History Social History Smoking packs per day: 1 Smoking cigarettes per day: 20.0 Years smoked: 50 Smoking pack-years: 50.00 Smoking status: Current every day smoker Tobacco type: cigarettes Second hand tobacco smoke exposure: No Alcohol intake: former Drinks per week: 6 Alcohol use details: SOCIALLY Substance use: never Substance use type: does not use Do You Feel Safe in your Home?: Yes Lack of Transportation: No Lack of Food: Never True Current Housing: I Have Housing Concerned About Future Housing: No Difficulty Paying Gas/Electric Bills: No Difficulty Paying for Meds: No Currently Unemployed: No Education: High School Diploma/GED Difficulty w/ Childcare or Family Care: No Living arrangements: with family Occupation/Education: occupation 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 Appears uncomfortabe, especially with movement HEAD: Normocephalic, atraumatic. EYES: Non injected, non icteric ENT: Nares clear, no rhinorrhea or epistaxis. NECK: Supple. CHEST: Speaking in full sentences. No respiratory distress. lungs clear to auscultation bilaterally without wheezes Or crackles. HEART: Regular rate and rhythm. . ABDOMEN/REctal: Soft, nondistended. Tender to palpation particularly at the epigastrium and suprapubic area as well as right lower quadrant. Most of her pain however is localized to the right upper quadrant. Not peritoneal. Nonthrombosed external hemorrhoids without areas of bleeding or fissures/ulceration. The skin does appear raw at some areas. Normal sphincter tone. Normal stool on the gloved lubricated finger. FOBT/guaiac negative. EXTREMITIES: Normal range of motion. No lower extremity edema. SKIN: Warm, dry, no rash. NEURO: No focal deficits. Alert and oriented x3. PSYCH: Normal mood and affect. Course Vital Signs Vital signs: Vital Signs Temperature 97.8 F 10/08/24 07:02 Pulse Rate 96 10/08/24 07:02 Respiratory Rate 18 10/08/24 07:02 Blood Pressure 149/59 H 10/08/24 07:02 Temperature 98.9 F 10/09/24 06:00 Pulse Rate 115 H 10/09/24 06:00 Respiratory Rate 20 10/09/24 06:00 Blood Pressure 125/59 L 10/09/24 06:00 Pulse Oximetry 97 10/09/24 06:42 Oxygen Delivery Nasal Cannula 10/09/24 04:05 Oxygen Flow Rate 2 10/09/24 04:05 MDM - Abdominal Pain MDM Narrative Medical decision making narrative: Patient presents with essentially acute onset right upper quadrant abdominal pain past 24 hours. She has been resting significantly past month after sustaining to rib fractures after a fall. This pain is actually getting better over past several weeks and she had not even require any pain medicine. Initial vital signs were borderline for tachycardia. EKG did show a rate of 120 beats per minute however on reassessment this is between 87 and 90 on the monitoring coordinator. Notes that she has never been told she has supraventricular beats/aberrant beats or had that worked up and is otherwise asymptomatic from this. She does note that she has been having some blood on the tissue paper which she attributes to a hemorrhoid this has been chronic and previously worked up several times, by her Ob Gyne as well as others. FOBT/guaiac negative on digital rectal exam. Patient has an RAMSEY; IV fluids ordered in addition to the morphine and Zofran that have already been ordered for pain and nausea. She has new transaminitis. She is status post cholecystectomy. Lipase normal. Urinalysis does show bacteria but also with squamous cells and appears to be largely contaminated with only scant white blood cells and trace leukocyte esterase. Because she is otherwise asymptomatic, will defer treating asymptomatic bacteriuria at this time and hold for culture. upon return from CT scan I am informed that patient desaturates to 88% on room air. In conjunction with learning that she has a small pneumothorax, advised that she be placed non-rebreather. patient has a history of COPD. She has never required oxygen supplementation. Traumatic injury was 4 weeks ago. it is very unclear whether this injury occurred 4 weeks ago when more acutely whether due to initial trauma and chest injury versus spontaneous setting of potential small ruptured bleb. Patient denies any shortness of breath, she rather continues to hold her right upper quadrant and lateral right abdomen. this patient is observed for several hours with non-rebreather in place. Patient intermittently given analgesic medication. When non-rebreather is removed and patient attempts to move around the bed however she does desaturate again to the high 80s for this reason she will need to be admitted. Discussed with on-call general surgeon Dr. Pollack ; reviewed history, physical exam, and images. Given the size of this small pneumothorax, does not believe that a chest tube is necessary at this time. Patient was at her last lead to be admitted for continued monitoring and potentially O2 evaluation. Pulmonolgy consult is available on this date. Discussed with production planning manager hospitalist TODD Gaona. Differential Diagnosis Differential diagnosis: Likely abdominal pain, calculus of kidney, constipation, diverticulitis and pancreatitis Lab Data Attestation: I reviewed the patient's lab results. Lab results narrative: Very mild leukocytosis 10/09/24 05:55 10/09/24 05:55 Labs: Lab Results 10/08/24 10/08/24 Range/Units 07:16 08:36 WBC 10.6 H (4.5-10.0) K/mm3 RBC 4.39 (4.2-5.4) M/mm3 Hgb 14.1 (12.0-15.0) g/dL Hct 42.4 (37.0-47.0) % MCV 96.6 (80-100) fl MCH 32.1 (26-34) pg MCHC 33.3 (32-36) g/dl RDW 12.1 (11.5-14.5) % Plt Count 341 (150-375) k/mm3 MPV 9.5 (7.4-10.4) fl Immature Gran % (Auto) 0.4 (0-0.5) % Neut % (Auto) 49.7 (45.5-73.1) % Lymph % (Auto) 27.4 (18.3-44.2) % [place] % (Auto) 14.9 H (2.6-8.5) % Eos % (Auto) 6.7 H (0-4.4) % Baso % (Auto) 0.9 (0.2-1.2) % Lymph # (Auto) 2.89 (0.9-3.2) K/mm3 [place] # (Auto) 1.6 H (0.1-0.6) K/mm3 Eos # (Auto) 0.7 H (0-0.3) K/mm3 Baso # (Auto) 0.1 (0.0-0.1) K/mm3 Abs Immat Gran (auto) 0.04 H (0.00-0.031) K/mm3 Absolute Neuts (auto) 5.3 (1.3-6.7) K/mm3 Absolute Nucleated RBC 0.000 (0.0-0.012) K/mm3 Nucleated RBC % 0.0 (0.0-0.2) % Sodium 133 L (137-145) mmol/L Potassium 4.4 (3.4-5.0) mmol/L Chloride 101 (98-107) mmol/L Carbon Dioxide 25 (22-30) mmol/L Anion Gap 7 (4-12) mmol/L BUN 16 (7-17) mg/dL Creatinine 1.10 H (0.7-1.0) mg/dL Estim Creat Clear Calc Not Reportable Estimated GFR 50 L (59 - ) Glucose 163 H (65-110) mg/dL Calcium 9.5 (8.4-10.2) mg/dL Total Bilirubin 0.7 (0.2-1.3) mg/dL AST 87 H (14-36) U/L ALT 141 H (6-35) U/L Alkaline Phosphatase 223 H (38-126) U/L Troponin I < 0.012 (0.000-0.034) ng/mL Total Protein 8.0 (6.3-8.2) g/dL Albumin 4.3 (3.5-5.1) g/dL Lipase 89 (23-300) U/L Urine Color Dark yellow (Yellow) Urine Appearance Cloudy H (Clear) Urine pH 5.5 (5.0-9.0) Ur Specific [place] 1.022 (1.001-1.035) Urine Protein 1+ H (Negative) mg/dL Urine Glucose (UA) Negative (Negative) mg/dL Urine Ketones Trace H (Negative) mg/dL Ur Blood (Man) Negative (Negative) Urine Nitrate Negative (Negative) Urine Bilirubin 1+ H (Negative) Urine Urobilinogen 1.0 (<2.0) mg/dL Add Ur Microanalysis Reviewed Leukocyte Esterase Rfl Trace H (Negative) YESSENIA/UL Urine RBC 3-5 H (0-2) /hpf Urine WBC 6-10 H (0-3) /hpf Ur Squamous Epith Cells Many H (Few) /hpf Urine Bacteria 2+ H /hpf Urine Casts >20 Imaging Data Attestation: I personally reviewed and interpreted this imaging study as follows: My impression: Small right-sided pneumothorax Radiologist's impression: ITS Impressions Chest X-Ray 10/08/24 07:30 IMPRESSION: 1. No acute cardiopulmonary disease. Chest/Abdomen/Pelvis CTA 10/08/24 10:41 IMPRESSION: 1. Healing right rib fractures with right lung lower lobe laceration and small right pneumothorax. 2. Mild emphysema. 3. Wall thickening of the ascending and transverse colon, consistent with edema versus colitis. 4. No pulmonary embolus. ECG Data EKG #1: Attestation: I personally reviewed and interpreted this ECG as follows: ECG completion date: 10/08/24 ECG completion time: 07:12 Interpretation: Sinus tachycardia at a rate of 120 beats per minute. Patient is having aberrant supraventricular complexes that occur 3 times on EKG provided (possibly every 6th beat although not definitive). Good R-wave progression across the precordial leads. No T-wave inversions. Discharge Plan Discharge Clinical Impression: Abdominal pain, RUQ, Diarrhea, Leukocytosis, RAMSEY (acute kidney injury), Transaminitis, Asymptomatic bacteriuria, Right rib fracture, Laceration of lung, Pneumothorax, right, Emphysema of lung, Colon wall thickening Patient Disposition: Still a Patient Condition: Stable
[2024-10-08] MEDS: MORPHINE SULFATE (*CRX) 4 MG/ML INJ IV PUSH (10:03)
[2024-10-08] MEDS: SODIUM CHLORIDE 0.9% IV 1,000 ML 999 ML IV CONT (10:03)
[2024-10-08] MEDS: ONDANSETRON INJ 4 MG/2 ML VIAL IV PUSH ×2 (10:04→23:04)
[2024-10-08 10:26] LABS: Add Urine Microscopic? YES; Appearance Urine Cloudy (Clear); Bacteria Urine 2+ /hpf; Bilirubin Urine 1+ (Negative); Blood Urine Negative (Negative); Color Urine Dark Yellow (Yellow); Glucose Urine UA Negative (Negative); Ketones Urine Trace mg/dL (Negative); Leukocyte Esterase Ur Trace LEU/UL (Negative); Need Manual Microscopic Reviewed; Nitrate Urine Negative (Negative); Non Pathogenic Casts >20; Protein Urine 1+ mg/dL (Negative); Specific Grav Ur 1.022 (1.001-1.035); Squamous Epithelial Cell Urine Many /hpf (Few); pH Urine 5.5 (5.0-9.0)
[2024-10-08] MEDS: HYDROmorphone HCL INJ (*CRX) 1 MG/ML SYR 0.5 MG IV PUSH (13:06)
--- NOTE | 2024-10-08 13:27 | PC.NURSE ---
provided pt with food and water and removed non-rebreather per provider GINA
[2024-10-08] MEDS: fentaNYL CITRATE INJ (*CRX) 100 MCG/2 ML VIAL 50 MCG IV PUSH (14:30)
[2024-10-08] MEDS: DICYCLOMINE HCL 10 MG CAPSULE PO (14:30)
[2024-10-08] MEDS: KETOROLAC 15 MG/ML VIAL (*BKC) IV PUSH (14:36)
--- NOTE | 2024-10-08 15:57 | PM.IMHP ---
H&P: HPI History of Present Illness Date/Time: 10/08/24 15:57 Chief Complaint: RUQ Pain Narrative: 68 y/o F presents here with right upper abdominal pain with hx of cholecystectomy, depression, anxiety, GERD, hypertension, obstructive lung disease, chronic right upper quadrant pain, and elevated liver enzymes. The patient presents here from home for further evaluation of right abdominal pain. She reports initial onset of pain yesterday afternoon (10/07). She has had chronic RUQ pain since her cholecystectomy (2019). She describes the pain as sharp, radiating briefly into her chest (x3), constant, no aggravating factors, and alleviated by hydrocodone and meloxicam, would dull the pain. Not precipitated by fatty or greasy foods. She endorses associated diarrhea, typically has intermittent diarrhea since she turned 62. Diarrhea has been more constant in the last 3 months. Has been taking Imodium with only brief reprieves. Last colonoscopy done 5-6 years ago, no abnormalities per patient recall. Last on file here in 2015. Denies fever, chills, vomiting, or body aches. +nausea. Of note, the patient see here on 09/11/24 s/p ground level fall on 09/06 for evaluation of rib pain and had CXR done through [facility] on 09/10 which showed multiple rib fractures. Patient had been taking Tylenol and ibuprofen which were not controlling her pain. She was discharged with [place] and an incentive spirometer as well as encouraged to have close follow-up with her PCP. CXR done on 09/11 showed minimal bilateral pleural effusions and a lateral right 7th rib fracture. She is currently denying shortness of breath and has noted a slight increase in her work of breathing, but has a new oxygen requirement. However CTA of the chest/abdomen/pelvis today showed a small right pneumothorax that was not appreciated on CXR. ETOH use: social, 1-2 times per week. Initial VS at presentation: 97.8? F, HR 96, RR 18, 149/59, and 94% on room air. Now requiring 4L NC. ED workup showed: WBC 10.6, no anemia, sodium 133, creatinine 1.1 and GFR 50 (previously 0.8 and GFR 81 on 06/29/2024), AST 87, ALT 141, alk-phos 223, and initial troponin negative. UA appears contaminated, cannot rule out UTI. CXR showed no acute cardiopulmonary disease. CTA of the chest/abdomen/pelvis showed a healing right rib fractures with right lung lower lobe laceration small right pneumothorax, mild emphysema, mild thickening of the ascending and transverse colon consistent with edema versus colitis, and no PE. Initial EKG showed sinus tachycardia, rate 120, with frequent supraventricular premature complexes. Review of Systems Review of Systems: All systems reviewed & are unremarkable except as noted in HPI and below [facility] Past Medical History Medical History (Updated 10/08/24 @ 23:12 by Marline Law APRN) Adenomatous colon polyp Anxiety disorder, unspecified Cholecystectomy planned Chronic bronchitis with acute exacerbation Chronic RUQ pain Colon cancer screening COVID-19 Depression Elevated glucose Elevated liver enzymes Epigastric pain Fracture of left humerus Gastroparesis GERD without esophagitis High triglycerides Hx of bronchitis Hypertension IBS (irritable bowel syndrome) Lumbar back pain with radiculopathy affecting lower extremity Nausea Obstructive lung disease Rib pain Screening, lipid Surgical History Surgical History History of appendectomy lap in 2017 History of cholecystectomy Family History Family History Sibling Diabetes mellitus Hypertension Patient's brother is in good health Acute myocardial infarction Mother Patient's mother is in good health Family history of Alzheimer's disease Father Patient's father is , Onset Age: 63 Other Family history of alcoholism Family history of irritable bowel syndrome Family history of osteoporosis Social History Social History Smoking packs per day: 1 Smoking cigarettes per day: 20.0 Years smoked: 50 Smoking pack-years: 50.00 Smoking status: Current every day smoker Tobacco type: cigarettes Second hand tobacco smoke exposure: No Alcohol intake: former Drinks per week: 6 Alcohol use details: SOCIALLY Substance use: never Substance use type: does not use Do You Feel Safe in your Home?: Yes Lack of Transportation: No Lack of Food: Never True Current Housing: I Have Housing Concerned About Future Housing: No Difficulty Paying Gas/Electric Bills: No Difficulty Paying for Meds: No Currently Unemployed: No Education: High School Diploma/GED Difficulty w/ Childcare or Family Care: No Living arrangements: with family Occupation/Education: occupation 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 Gender identity (if verbalized by the patient): Female Spiritual care concerns: No Meds Home Medications and Allergies Home Medications Medication Instructions Recorded Confirmed Type aspirin 81 mg tablet,delayed 81 mg PO DAILY 09/27/19 10/08/24 History release estradiol 0.5 mg tablet 0.5 mg PO QHS 08/27/21 10/08/24 History progesterone micronized 200 mg 200 mg PO QHS 08/27/21 10/08/24 History capsule Anoro Ellipta 62.5 mcg-25 1 inh inhalation DAILY 90 days 05/12/24 10/08/24 Rx mcg/actuation powder for #180 ea inhalation (umeclidinium-vilanterol) albuterol sulfate 90 mcg/actuation 1 - 2 puff inhalation Q4-6H PRN 05/12/24 10/08/24 Rx aerosol inhaler shortness of breath or wheezing 90 days #25.5 grams omeprazole 20 mg tablet,delayed 20 mg PO DAILY 14 days #14 tabs 09/11/24 10/08/24 Rx release meloxicam 15 mg tablet 15 mg PO DAILY #20 tabs 09/13/24 10/08/24 Rx tizanidine 4 mg capsule 4 mg PO TID PRN muscle spasticity 09/13/24 10/08/24 Rx #30 caps duloxetine 20 mg capsule,delayed 20 mg PO QHS 10/08/24 10/08/24 History release Allergies Allergy/AdvReac Type Severity Reaction Status Date / Time tramadol AdvReac Intermediate Other Verified 10/08/24 07:25 amitriptyline AdvReac Mild Photosensit Verified 10/08/24 07:25 ivity Vital Signs Vital Signs - 24 hr 10/08/24 07:02 10/08/24 10:15 10/08/24 11:05 Temperature 97.8 F Pulse Rate 96 86 Respiratory Rate 18 18 Blood Pressure 149/59 H 132/65 Pulse Oximetry 94 98 Oxygen Delivery Nasal Cannula Oxygen Flow Rate 2 10/08/24 11:20 10/08/24 11:20 10/08/24 11:01 Temperature Pulse Rate 91 Respiratory Rate 14 Blood Pressure Pulse Oximetry 100 100 86 L Oxygen Delivery Non-Rebreather Mask Non-Rebreather Mask Oxygen Flow Rate 15 15 10/08/24 11:19 10/08/24 11:33 10/08/24 11:55 Temperature Pulse Rate 87 82 78 Respiratory Rate 20 14 13 Blood Pressure Pulse Oximetry 98 100 100 Oxygen Delivery Oxygen Flow Rate 10/08/24 12:00 10/08/24 12:15 10/08/24 12:30 Temperature Pulse Rate 78 81 78 Respiratory Rate 15 16 16 Blood Pressure Pulse Oximetry 100 100 100 Oxygen Delivery Oxygen Flow Rate 10/08/24 13:15 10/08/24 13:30 10/08/24 13:31 Temperature Pulse Rate 79 Respiratory Rate 11 L Blood Pressure 135/50 L Pulse Oximetry 100 87 L 100 Oxygen Delivery Room Air Non-Rebreather Mask Oxygen Flow Rate 15 10/08/24 15:42 10/08/24 13:32 10/08/24 15:15 Temperature Pulse Rate 92 77 Respiratory Rate 18 18 Blood Pressure 125/79 Pulse Oximetry 98 93 99 Oxygen Delivery Nasal Cannula Oxygen Flow Rate 4 Exam Const: General: comfortable and no acute distress Other: , female, nontoxic appearance HENMT: Face/Nose/Sinus: Normal nares present Mouth: Yes moist mucous membranes Other: Nasal cannula in place. Eyes: General: appearance normal, both eyes and all related structures Sclera: sclerae normal Pupils: Equal, round and reactive pupils present EOM: EOMs intact bilaterally Resp: Effort & Inspection: normal respiratory effort Auscultation: clear to auscultation bilaterally Other: No increased work of breathing or retractions. Cardio: Rate: regular rate Rhythm: regular rhythm Other: S1-S2 present without murmur, rub, ectopy GI: Other: Abdomen soft, nondistended, nontender. Hyperactive bowel sounds in all quadrants. : Other: No suprapubic tenderness. Skin: General skin exam: normal color and no rashes or lesions noted Wounds: no wounds Neuro: Speech: normal speech Motor exam (neuro): 5/5 motor strength present throughout Sensory Exam: normal sensation Other: A&O x4 Extrem: General: normal to inspection Psych: Mental Status: mental status grossly normal Affect: Anxious affect present (Tearful when discussing her son) H&P: Results Labs Labs: Short CBC 10/08/24 Range/Units 07:16 WBC 10.6 H (4.5-10.0) K/mm3 Hgb 14.1 (12.0-15.0) g/dL Hct 42.4 (37.0-47.0) % Plt Count 341 (150-375) k/mm3 BMP 10/08/24 07:16 Sodium 133 L Potassium 4.4 Chloride 101 Carbon Dioxide 25 BUN 16 Creatinine 1.10 H Glucose 163 H Calcium 9.5 Cardiac Enzymes 10/08/24 Range/Units 07:16 Troponin I < 0.012 (0.000-0.034) ng/mL Liver Function 10/08/24 Range/Units 07:16 Total Bilirubin 0.7 (0.2-1.3) mg/dL AST 87 H (14-36) U/L ALT 141 H (6-35) U/L Alkaline Phosphatase 223 H (38-126) U/L Albumin 4.3 (3.5-5.1) g/dL Urine 10/08/24 Range/Units 08:36 Urine Color Dark yellow (Yellow) Urine Appearance Cloudy H (Clear) Urine pH 5.5 (5.0-9.0) Ur Specific [place] 1.022 (1.001-1.035) Urine Protein 1+ H (Negative) mg/dL Urine Glucose (UA) Negative (Negative) mg/dL Assessment and Plan Assessment and plan (1) Pneumothorax, right: Code(s): J93.9 - Pneumothorax, unspecified Status: Acute Assessment and Plan: - CXR: No acute cardiopulmonary disease. Review of CXR today per my review showed small right pneumothorax. And per my review of CXR on 09/11/2024, small right pneumothorax not appreciated. - CTA chest/abd/pelvis: 1. Healing right rib fractures with right lung lower lobe laceration and small right pneumothorax. 2. Mild emphysema. 3. Wall thickening of the ascending and transverse colon, consistent with edema versus colitis. 4. No pulmonary embolus. - general surgery consulted, awaiting formal recs ED provider spoke with Ranjeet CHAMPION, no current indication for chest tube at this time. - repeat CXR two view in AM, may need re-evaluation by chest CT non con - transfer patient for CT surgery, preference [place] - continue supplemental O2 Call made to [facility] for possible transfer for CT surgery evaluation given the known shard protruding into lung. Awaiting call back. (2) Emphysema of lung: Qualifiers: Emphysema type: unspecified Qualified Code(s): J43.9 - Emphysema, unspecified Code(s): J43.9 - Emphysema, unspecified Status: Acute Assessment and Plan: - new O2 requirement, pneumothorax vs emphysema driven - may need home O2 evaluation (3) Abdominal pain, RUQ: Code(s): R10.11 - Right upper quadrant pain Status: Acute Assessment and Plan: - CTA chest/abd/pelvis showed wall thickening of the ascending and transverse colon, consistent with edema versus colitis. No other significant abdominal findings - history of cholecystectomy - analgesics and antiemetic p.r.n. - DDx: discomfort secondary to colitis vs pneumothorax (4) Colon wall thickening: Code(s): K63.9 - Disease of intestine, unspecified Status: Acute Assessment and Plan: - CTA showed wall thickening of the ascending and transverse colon, consistent with edema versus colitis. - patient reporting worsening diarrhea over the last 3 weeks - add c.diff, stool culture, and calprotectin - started on Zosyn on 10/08 - IV fluids (5) RAMSEY (acute kidney injury): Code(s): N17.9 - Acute kidney failure, unspecified Status: Acute Assessment and Plan: - creatinine 1.1 and GFR 50, previously 0.8 and GFR 81 on 06/29/2024 - trial IV fluids, suspected to be prerenal given ongoing diarhea - trend renal function - trend electrolytes, correct as needed (6) Transaminitis: Code(s): R74.01 - Elevation of levels of liver transaminase levels Status: Acute Assessment and Plan: - AST 87, ALT 141, alk-phos 223 - lipase 89 - history of cholecystectomy - ETOH use: social, 1-2 days per week - trend (7) Asymptomatic bacteriuria: Code(s): R82.71 - Bacteriuria Status: Acute Assessment and Plan: - UA: Cloudy, 1+ protein, trace ketones, 1+ bilirubin, trace leuks, 3-5 RBC, 6-10 WBC, many epithelial cells, 2+ bacteria. Suspected to be contaminated given number of epithelial cells. - UC pending, follow - patient is asymptomatic, will hold on ABX initiation (8) Hypertension: Qualifiers: Hypertension type: essential hypertension Qualified Code(s): I10 - Essential (primary) hypertension Code(s): I10 - Essential (primary) hypertension Status: Resolved Assessment and Plan: - chronic, currently 125/79 - not currently on medications - monitor Plan [facility] transfer line called at [address] evaluation. Images pushed forward. Awaiting return call. Diet: Heart healthy GI Prophylaxis: Not currently indicated DVT Prophylaxis: SCDs Lines: Peripheral Code Status: Full code Quality VTE Prophylaxis VTE prophylaxis: mechanical ordered Hospitalist MIPS Advance Care Plan I have confirmed that the patient's Advanced Care Plan is present, code status is documented, or surrogate decision maker is listed in patient medical record.: Yes Medication Reconciliation I have utilized all available resources to obtain, update and review the patients current medications (includes all prescriptions, OTC, herbals, cannabis, and nutritional supplements).: Yes
--- NOTE | 2024-10-08 17:09 | ADMGEN ---
This patient, Tonia Azar, was admitted to 2 Medical Room 253-01. Patient/family oriented to hospital policies and general routines including ID bracelet, bed and alarms, visiting hours, pain management, procedures, bathroom and other care routines, personal items, smoking policy, room service/diet, and visiting hours. Information on how to activate the Rapid Response Team has been discussed. Patient/Family are encouraged to report perceived risks to care and to ask questions if they do not understand what they are told or what they should do. report received from Gwendolyn in ED
[2024-10-08] MEDS: MORPHINE SULFATE (*CRX) 2 MG/ML INJ IV PUSH ×2 (18:38→23:04)
[2024-10-08] MEDS: MELATONIN 3 MG TABLET PO (21:52)
[2024-10-08] MEDS: PIPERACILLN/TAZ 3.375GM/NS50ML 3.375 GM/50 ML BAG IVPB (23:23)
[2024-10-09] VITALS (7 sets, daily range): BP systolic 125–130; BP diastolic 59–60; PULSE 98–119; RESP 18–20; TEMP 36.7–37.2; O2SAT 65–97
--- NOTE | 2024-10-09 01:29 | PC.NURSE ---
Addendum entered by Jagdish Russell RN 10/09/24 01:48: Report given 10/08 @0120 Original Note: Transfer approved to [facility] for right pneumothorax laceration from unhealed rib fracture. Report given to Ciara Dickerson RN receiving nurse. Patient is stable at this time. All questions answer about pt condition and needs for successful transfer.
[2024-10-09] MEDS: ONDANSETRON INJ 4 MG/2 ML VIAL IV PUSH ×2 (02:23→05:57)
[2024-10-09] MEDS: MORPHINE SULFATE (*CRX) 4 MG/ML INJ IV PUSH ×2 (02:30→06:51)
--- NOTE | 2024-10-09 04:00 | PC.NURSE ---
was notified pt pulse on continuing education director was 115 -124 bpm. Vital sign were stable 130/60, R 18, T 98.1F, Oxygen 93% RA. Dr. Yun requested patient to remain on 2L NC due to pneumothorax. Will continue to monitor vs telemetry monitoring strips.
--- NOTE | 2024-10-09 04:13 | PC.NURSE ---
[employer] GAVE ETA OF 0230 CALLED FOR UPDATE AT 0410 AFTER THEM NOT ARRIVING AND THE NEW ETA IS 0530. PT NURSE KAREN NOTIFIED
[2024-10-09] MEDS: PIPERACILLN/TAZ 3.375GM/NS50ML 3.375 GM/50 ML BAG IVPB (05:57)
[2024-10-09 06:01] LABS: Hematocrit 40.1 % (37.0-47.0); Hemoglobin 13.1 g/dL (12.0-15.0); Mean Corpuscular HGB Conc 32.7 g/dl (32-36); Mean Corpuscular Hemoglobin 31.8 pg (26-34); Mean Corpuscular Volume 97.3 fl (80-100); Mean Platelet Volume 8.9 fl (7.4-10.4); Platelet Count Result 288 k/mm3 (150-375); Red Blood Count 4.12 M/mm3 (4.2-5.4); Red Cell Distribution Width 11.9 % (11.5-14.5); White Blood Count 13.6 K/mm3 (4.5-10.0)
[2024-10-09 06:14] LABS: Alanine Aminotransferase 103 U/L (6-35); Albumin Level 3.8 g/dL (3.5-5.1); Alkaline Phosphatase 257 U/L (38-126); Anion Gap 6 mmol/L (4-12); Aspartate Amino Transferase 63 U/L (14-36); Bilirubin,Total 0.8 mg/dL (0.2-1.3); Blood Urea Nitrogen 15 mg/dL (7-17); Calcium 8.2 mg/dL (8.4-10.2); Carbon Dioxide 21 mmol/L (22-30); Chloride 101 mmol/L (98-107); Estimated CRCL calculation 48 ml/min; Estimated Glomerular Filt Rate > 60; Glucose 115 mg/dL (65-110); Potassium 3.9 mmol/L (3.4-5.0); Sodium 128 mmol/L (137-145)
[2024-10-09 06:46] LABS: Band Neutrophils Percent 5 % (0-6); Eosinophils Absolute Manual 0.13 K/mm3 (0.02-0.50); Eosinophils Percent Manual 1 % (0-4); Lymphocytes Absolute Manual 1.22 K/mm3 (1.1-4.5); Monocytes Absolute Manual 1.76 K/mm3 (0.1-0.90); Monocytes Percent Manual 13 % (3-9); Neutrophils Absolute Manual 10.47 K/mm3 (1.7-7.2); Neutrophils Percent Manual 72 % (46-73); Total Cells Counted 100
[2024-10-09 06:47] LABS: Platelet Estimate Adequate (Adequate); Schistocytes None Seen
--- NOTE | 2024-10-12 13:05 | PM.TDS ---
Transfer Discharge Sum: Prov Provider Date of admission: 10/08/24 14:46 Primary care physician: Farshad Clark MD Admitting clinician: Marlon Morales MD Attending physician on admission: Marlon Morales MD Consults: 10/08/24 Consult to Physician Routine Comment: Consulting Provider: Marcia Pollack Reason for consultation: small PTX Has provider been notified: Yes Attending physician on discharge: Marlon Morales MD Discharging clinician: Marline Law Anticipated date of transfer: 10/09/24 Receiving physician/facility: [facility], cardiothoracic service, Zhao CHAMPION. DS: Admitting Diagnosis Discharge Date 10/09/24 Admitting Diagnosis Pneumothorax (right), abdominal pain (right upper quadrant), colon wall thickening DS: Discharge Diagnosis Discharge Diagnosis Plan Final diagnosis: Pneumothorax (right), abdominal pain (right upper quadrant), colon wall thickening Transfer Discharge Sum: Med Medications Active and Home Medications: Home Medications aspirin 81 mg tablet,delayed release 81 mg PO DAILY 09/27/19 [History Confirmed 10/08/24] estradiol 0.5 mg tablet 0.5 mg PO QHS 08/27/21 [History Confirmed 10/08/24] progesterone micronized 200 mg capsule 200 mg PO QHS 08/27/21 [History Confirmed 10/08/24] Anoro Ellipta 62.5 mcg-25 mcg/actuation powder for inhalation (umeclidinium-vilanterol) 1 inh inhalation DAILY 90 days #180 ea 05/12/24 [Rx Confirmed 10/08/24] albuterol sulfate 90 mcg/actuation aerosol inhaler 1 - 2 puff inhalation Q4-6H PRN shortness of breath or wheezing 90 days #25.5 grams 05/12/24 [Rx Confirmed 10/08/24] omeprazole 20 mg tablet,delayed release 20 mg PO DAILY 14 days #14 tabs 09/11/24 [Rx Confirmed 10/08/24] meloxicam 15 mg tablet 15 mg PO DAILY #20 tabs 09/13/24 [Rx Confirmed 10/08/24] tizanidine 4 mg capsule 4 mg PO TID PRN muscle spasticity #30 caps 09/13/24 [Rx Confirmed 10/08/24] duloxetine 20 mg capsule,delayed release 20 mg PO QHS 10/08/24 [History Confirmed 10/08/24] Transfer Discharge Sum: Hosp Hospital Course Hospital course: 68 y/o F presents here with right upper abdominal pain with hx of cholecystectomy, depression, anxiety, GERD, hypertension, obstructive lung disease, chronic right upper quadrant pain, and elevated liver enzymes. The patient presents here from home for further evaluation of right abdominal pain. She reports initial onset of pain yesterday afternoon (10/07). She has had chronic RUQ pain since her cholecystectomy (2019). She describes the pain as sharp, radiating briefly into her chest (x3), constant, no aggravating factors, and alleviated by hydrocodone and meloxicam, would dull the pain. Not precipitated by fatty or greasy foods. She endorses associated diarrhea, typically has intermittent diarrhea since she turned 62. Diarrhea has been more constant in the last 3 months. Has been taking Imodium with only brief reprieves. Last colonoscopy done 5-6 years ago, no abnormalities per patient recall. Last on file here in 2015. Denies fever, chills, vomiting, or body aches. +nausea. Of note, the patient see here on 09/11/24 s/p ground level fall on 09/06 for evaluation of rib pain and had CXR done through [facility] on 09/10 which showed multiple rib fractures. Patient had been taking Tylenol and ibuprofen which were not controlling her pain. She was discharged with [facility] and an incentive spirometer as well as encouraged to have close follow-up with her PCP. CXR done on 09/11 showed minimal bilateral pleural effusions and a lateral right 7th rib fracture. She is currently denying shortness of breath and has noted a slight increase in her work of breathing, but has a new oxygen requirement. However CTA of the chest/abdomen/pelvis today showed a small right pneumothorax that was not appreciated on CXR. ETOH use: social, 1-2 times per week. CTA chest/abdomen: 1. Healing right rib fractures with right lung lower lobe laceration and small right pneumothorax. 2. Mild emphysema. 3. Wall thickening of the ascending and transverse colon, consistent with edema versus colitis. 4. No pulmonary embolus. Upon further review of the patient's imaging, findings did include a bone fragment of the right 10th rib protrudes into the right lung lower lobe where there are airspace opacities, consistent with laceration. These findings prompted transfer to [facility] for their cardiothoracic service and further evaluation. While awaiting transfer, the patient was continued on supplemental oxygen, started on Zosyn for suspected colitis, and given IV fluids for small bump in creatinine (0.8 -> 1.1). The patient was transferred in stable condition and on supplemental O2 (2L NC) on 10/09/24. Time Spent with Patient Time attestation: Total time spent providing and/or coordinating transfer services: 35 minutes Total time spent: Greater than 30 minutes Exam Const: General: comfortable and no acute distress Other: , female, nontoxic appearance HENMT: Face/Nose/Sinus: Normal nares present Mouth: Yes moist mucous membranes Other: Nasal cannula in place. Eyes: General: appearance normal, both eyes and all related structures Sclera: sclerae normal Pupils: Equal, round and reactive pupils present EOM: EOMs intact bilaterally Resp: Effort & Inspection: normal respiratory effort Auscultation: clear to auscultation bilaterally Other: No increased work of breathing or retractions. Cardio: Rate: regular rate Rhythm: regular rhythm Other: S1-S2 present without murmur, rub, ectopy GI: Other: Abdomen soft, nondistended, nontender. Hyperactive bowel sounds in all quadrants. : Other: No suprapubic tenderness. Skin: General skin exam: normal color and no rashes or lesions noted Wounds: no wounds Neuro: Speech: normal speech Motor exam (neuro): 5/5 motor strength present throughout Sensory Exam: normal sensation Other: A&O x4 Extrem: General: normal to inspection Psych: Mental Status: mental status grossly normal Affect: Anxious affect present (Tearful when discussing her son)
== END 2024-10-09 07:00 | disposition short-term general hospital (02) ==
LOC: ANHED 08:51 → ANH2MED 15:34
PROVIDERS: Student in an Organized Health Care Education/Training Program; Admitting Provider General Practice; Emergency Provider Student in an Organized Health Care Education/Training Program; PCP Family Medicine; Visit Provider General Practice
DX: S27.331A Laceration of lung, unilateral, initial encounter (principal); S22.41XA Multiple fractures of ribs, right side, initial encounter for closed fracture; S27.0XXA Traumatic pneumothorax, initial encounter; N17.9 Acute kidney failure, unspecified; W19.XXXA Unspecified fall, initial encounter; D72.829 Elevated white blood cell count, unspecified; R74.01 Elevation of levels of liver transaminase levels; K63.9 Disease of intestine, unspecified; R82.71 Bacteriuria; J43.9 Emphysema, unspecified; R19.7 Diarrhea, unspecified; I10 Essential (primary) hypertension; F41.9 Anxiety disorder, unspecified; F32.A Depression, unspecified; K21.9 Gastro-esophageal reflux disease without esophagitis; F17.210 Nicotine dependence, cigarettes, uncomplicated; Z79.51 Long term (current) use of inhaled steroids; Z79.82 Long term (current) use of aspirin
CPT/HCPCS: 36415; 71045; 71275; 74177; 80053; 81001; 83690; 84484; 85025; 93005; 96361; 96365; 96374; 96375; 96376; 99285; A9270; G0378; J1171; J1885; J2270; J2405; J2543; J3010; J7030; Q9967

== ENCOUNTER 2024-10-28 07:29 | Outpatient (CLI) | payer MEDICARE, SELFPAY ==
--- NOTE | ~2024-10-28 | NM_ITS ---
EXAMINATION: NM hepatobiliary wo pharm DATE: 10/28/2024 09:11 INDICATION: Right upper quadrant abdominal pain. COMPARISON: CT 10/08/2024 TECHNIQUE: 5.4 mCi Tc-99m mebrofenin (Choletec) was administered intravenously. Scintigraphic images of the abdomen were obtained for one hour. Delayed images were obtained at 1 hour 15 minutes. FINDINGS: There is normal clearance of radiotracer from the blood pool. There is homogeneous tracer u ptake by the liver. Activity progresses to the bowel. The gallbladder is absent. IMPRESSION: 1. Normal hepatobiliary scintigraphy status post cholecystectomy. Reviewed, dictated and finalized at location A. LIFT SCOURER
== END 2024-10-28 07:30 | disposition home or self-care (01) ==
PROVIDERS: PCP Family Medicine
DX: R10.11 Right upper quadrant pain (principal); Z90.49 Acquired absence of other specified parts of digestive tract
CPT/HCPCS: 78226; A9537

== ENCOUNTER 2024-11-23 14:58 | Outpatient (CLI) | payer MEDICARE, SELFPAY ==
--- NOTE | ~2024-11-23 | XR_ITS ---
EXAMINATION: XR chest 2V DATE: 11/23/2024 15:07 INDICATION: Pneumothorax, unspecified. TECHNIQUE: Frontal and lateral views of the chest were obtained. COMPARISON: Chest 2 views 10/08/2024, chest CT 10/08/2024 FINDINGS: There is mild scarring at the lung apices. Again seen are airspace opacities in basilar rig ht lower lobe. No pleural effusion or pneumothorax. The heart size is normal. There are healing fract ures of right eighth-10th ribs. IMPRESSION: 1. Healing right rib fractures with stable airspace opacities in basilar right lower lobe, consistent with laceration. Reviewed, dictated and finalized at location B. [employer]
== END 2024-11-23 14:59 | disposition home or self-care (01) ==
LOC: MICIMG 14:59
PROVIDERS: Visit Provider Nurse Practitioner Family
DX: R91.8 Other nonspecific abnormal finding of lung field (principal); S22.41XD Multiple fractures of ribs, right side, subsequent encounter for fracture with routine healing; X58.XXXD Exposure to other specified factors, subsequent encounter; J93.9 Pneumothorax, unspecified
CPT/HCPCS: 71046

== ENCOUNTER 2024-12-30 10:30 | Outpatient (CLI) | payer MEDICARE, SELFPAY | END 2024-12-30 10:31 | disposition home or self-care (01) | PROVIDERS: PCP Nurse Practitioner Family; Visit Provider Nurse Practitioner Family | DX: S22.39XA Fracture of one rib, unspecified side, initial encounter for closed fracture (principal); S27.329A Contusion of lung, unspecified, initial encounter; X58.XXXA Exposure to other specified factors, initial encounter | CPT/HCPCS: 71046 ==

== ENCOUNTER 2025-03-01 12:23 | Emergency (ER) | payer MEDICARE, SELFPAY ==
--- NOTE | 2025-03-01 12:27 | ED.URI ---
HPI - URI/Sore Throat General Chief Complaint: Upper Respiratory Infection Stated Complaint: Sinus Time Seen by Provider: 03/01/25 12:25 Source: patient Mode of arrival: ambulatory Limitations: no limitations History of Present Illness HPI Narrative: Patient is a 69-year-old female that presents with 2 weeks of congestion, sinus pressure, sinus pain, cough. Patient has history of COPD and is on 2 different inhalers. Patient is a pack-a-day smoker. Denies any fever, chills, nausea vomiting, diarrhea. Has taken [id number] medication relief. Related Data Home Medications ?Medication ?Instructions ?Recorded ?Confirmed ?Last Taken ?Type estradiol 0.5 mg tablet 0.5 mg PO QHS 08/27/21 11/23/24 10/07/24 History progesterone micronized 200 mg 200 mg PO QHS 08/27/21 11/23/24 10/07/24 History capsule duloxetine 40 mg capsule,delayed mg PO 03/01/25 Unknown History release Allergies Allergy/AdvReac Type Severity Reaction Status Date / Time tramadol AdvReac Intermediate Other Verified 03/01/25 12:25 amitriptyline AdvReac Mild Photosensit Verified 03/01/25 12:25 ivity Review of Systems Review of Systems: All systems reviewed & are unremarkable except as noted in HPI and below Constitutional: Constitutional: Denies chills, Denies fatigue, Denies fever(s), Denies headache(s), Denies malaise and Denies weakness Eyes: Eyes: Denies blurry vision, Denies itchy eyes and Denies loss of vision ENT: Denies otalgia, Denies headache(s), Reports nasal congestion, Reports sinus pain, Reports sinus pressure and Denies sore throat Cardiovascular: Cardiovascular: Denies chest pain, Denies irregular heart rhythm and Denies dyspnea Respiratory: Respiratory: Reports cough and Denies dyspnea Gastrointestinal: Gastrointestinal: Denies abdominal pain, Denies diarrhea, Denies nausea and Denies vomiting Musculoskeletal: Musculoskeletal: Denies back pain, Denies myalgias and Denies arthralgias Integumentary/Breasts: Skin/Breast: Denies pruritus and Denies rash Neurologic: Denies headache(s), Denies loss of vision and Denies weakness Psychiatric: Psychiatric: Reports no additional psychiatric complaints Endocrine: Endocrine: Denies fatigue Allergic/Immunologic: Allergic/Immunologic: Denies itchy eyes PMFSH Past Medical History Medical History COPD (chronic obstructive pulmonary disease) Rib pain Lumbar back pain with radiculopathy affecting lower extremity Chronic bronchitis with acute exacerbation Elevated liver enzymes Elevated glucose Cholecystectomy planned COVID-19 IBS (irritable bowel syndrome) Adenomatous colon polyp Gastroparesis Colon cancer screening Chronic RUQ pain Epigastric pain Nausea Fracture of left humerus Obstructive lung disease GERD without esophagitis High triglycerides Screening, lipid Anxiety disorder, unspecified Hypertension Depression Hx of bronchitis Surgical History Surgical History History of cholecystectomy History of appendectomy lap in 2017 Family History Family History Sibling Diabetes mellitus Hypertension Patient's brother is in good health Acute myocardial infarction Mother Patient's mother is in good health Family history of Alzheimer's disease Father Patient's father is , Onset Age: 63 Other Family history of alcoholism Family history of irritable bowel syndrome Family history of osteoporosis Social History Social History Smoking packs per day: 1 Smoking cigarettes per day: 20.0 Years smoked: 50 Smoking pack-years: 50.00 Smoking status: Current every day smoker Tobacco type: cigarettes Second hand tobacco smoke exposure: No Alcohol intake: former Drinks per week: 6 Alcohol use details: SOCIALLY Substance use: never Substance use type: does not use Do You Feel Safe in your Home?: Yes Lack of Transportation: No Lack of Food: Never True Current Housing: I Have Housing Concerned About Future Housing: No Difficulty Paying Gas/Electric Bills: No Difficulty Paying for Meds: No Currently Unemployed: No Education: High School Diploma/GED Difficulty w/ Childcare or Family Care: No Living arrangements: with family Occupation/Education: occupation 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 There is no relevant family history pertinent to the presenting complaint. Exam Const: General: cooperative, healthy appearing, comfortable, no acute distress and well nourished Nutritional Appearance: well nourished Orientation/consciousness: patient oriented x3 Limitations: no limitations HENMT: Head: normal to inspection, normocephalic and atraumatic Ears: hearing grossly normal bilaterally, external ears normal, TM's normal bilaterally, EAC's normal and no periauricular adenopathy Face/Nose/Sinus: Normal external nose present, Abnormal mucous membranes and turbinates present erythematous bilateral and diffuse, normal facial exam, face symmetric and Facial tenderness on exam of face and sinuses Face and sinus: normal facial exam, sinuses nontender and face symmetric Mouth: Yes Normal oral and palatal mucosa present, Yes lip normal, Yes tongue normal, Yes Normal salivary glands and ducts present, Yes oropharynx normal and Yes moist mucous membranes Teeth and gingiva: dentition normal Throat: posterior oropharynx normal, tonsils normal and uvula midline Eyes: General: appearance normal, both eyes and all related structures Alignment and Position: alignment normal and position normal Periorbital: periorbital findings normal Eyelids: eyelids normal Pupils: Equal, round and reactive pupils present Neck: Neck: normal visual inspection, full ROM, no lymphadenopathy and supple Chest: Chest palpation & inspection: normal inspection of the chest and normal palpation of entire chest wall Resp: Effort & Inspection: normal respiratory effort, able to speak in complete sentences and Actively coughing dry Auscultation: clear to auscultation bilaterally, no crackles, no rales, no rhonchi and no wheezes Cardio: Rate: regular rate Rhythm: regular rhythm Heart sounds: S1 normal heart sound present and S2 normal heart sound present GI: Inspection: normal to inspection Skin: General skin exam: normal color and no rashes or lesions noted Neuro: General: patient oriented x3 and moves all extremities Cranial nerves: Yes Equal, round and reactive pupils present Speech: normal speech Gait exam (Neuro): Normal gait present Extrem: General: normal to inspection, full ROM and no edema Psych: Appearance: grossly normal and well kempt Mental Status: mental status grossly normal Speech and movement: Normal speech and movement present Affect: normal affect Attitude: cooperative Thought process: Normal thought process present Course Course Emergency Course: Discharge instructions reviewed with patient, as well as provided in writing per nursing staff. The instructions also include specific and strict return/GO TO THE ER as well as f/u information. All questions have been answered, and the patient deny any further questions with discharge and discharge plan. Portions of this record may have been created with voice recognition software Level of Care: Express Care Visit Vital Signs Vital signs: Vital Signs Temperature 36.9 C 03/01/25 12:31 Pulse Rate 95 03/01/25 12:31 Respiratory Rate 20 03/01/25 12:31 Blood Pressure 135/90 03/01/25 12:31 Pulse Oximetry 98 03/01/25 12:31 Oxygen Delivery Room Air 03/01/25 12:31 Temperature 36.9 C 03/01/25 12:31 Pulse Rate 95 03/01/25 12:31 Respiratory Rate 20 03/01/25 12:31 Blood Pressure 135/90 03/01/25 12:31 Pulse Oximetry 98 03/01/25 12:31 Oxygen Delivery Room Air 03/01/25 12:31 Reviewed MDM - URI/Sore Throat MDM Narrative Medical decision making narrative: Pt well hydrated appearing, in no respiratory distress, hemodynamically stable. Recommend supportive care. The patient is stable at time of discharge the clinical impression was discussed and the patient was given the opportunity to ask questions, which were addressed as completely as possible given the information available at present. Anticipatory guidance and return to care precautions were discussed and the importance of primary care follow-up was stressed and encouraged. The patient voiced understanding of the plan, indications to return, and the need for follow-up. Exam findings show no acute concerns or changes Patient is appropriate for outpatient treatment and follow-up. Differential diagnosis considered: Johnson virus, strep pharyngitis, allergic rhinitis, upper respiratory tract infection, sinusitis, rhinosinusitis, nasopharyngitis. viral pharyngitis, otitis media, otitis externa, otitis effusion, foreign body, cerumen impaction, viral syndrome, and influenza.? Medical Records Attestation: I reviewed the patient's medical records. Discharge Plan Discharge Clinical Impression: Upper respiratory infection with cough and congestion Patient Disposition: Home Condition: Stable Instructions: Upper Respiratory Infection (ED) Additional Instructions: Take antibiotic as prescribed. Take steroids in the morning with food. Use Tessalon Perles as needed for cough. Other symptomatic treatments include: -Alternate Tylenol and Motrin per package directions for fever or pain: Tylenol 650-1000mg by mouth every 4-6 hours. Do not exceed 4000mg in 24 hours. Advil (Ibuprofen) 600 mg by mouth every 6 hours. Do not exceed 2400mg in 24 hours. 8 AM: Tylenol 11 AM: Ibuprofen 2 PM: Tylenol 5 PM: Ibuprofen 8 PM: Tylenol 11 PM: Ibuprofen 2 AM: Tylenol 5 AM: Ibuprofen -Antihistamine medication such as Benadryl at night and Zyrtec/Claritin/Nancy during the day can help improve symptoms. -Use Flonase twice a day for 5 days then daily to help reduce the inflammation and dry up your sinuses. -You can also use Sudafed or Mucinex. Be sure to drink plenty of water with these medications at least 8 ounces with every dose and it is important to drink 8 to 10 glasses of water per day. Water is a natural decongestant -Eat and drink things that are easy to swallow, like tea or soup, or popsicles. -Oral rinses such as: Salt water gargles and/or may use topical anesthetic (eg. Chloraseptic spray) or lozenges to relieve dryness or throat pain). -Frequent hand washing or hand oven operator automatic is one of the best ways to prevent spread of infection. -Using a vaporizer or humidifier at night will also help thin secretions and help with coughing up phlegm. Call your Primary Care Doctor and make a follow-up appointment in 3 days. If your cough worsens, you develop a fever greater than 103, you develop shaking chills, a fast heartbeat, trouble breathing and/or feel you are are breathing much faster than usual, call your Primary Care Doctor or go to the ER. Patient Language: French Prescriptions: New doxycycline monohydrate 100 mg tablet 100 mg PO BID 7 Days Qty: 14 0RF benzonatate 100 mg capsule 100 mg PO BID PRN (Reason: cough) Qty: 14 0RF prednisone 20 mg tablet 40 mg PO DAILY 5 Days Qty: 10 0RF fluticasone propionate [Flonase Allergy Relief] 50 mcg/actuation spray,suspension 1 spray intranasal DAILY Qty: 16 2RF Rx Instructions: administer into each nostril No Action estradiol 0.5 mg tablet 0.5 mg PO QHS Patient Comments: at night progesterone micronized 200 mg capsule 200 mg PO QHS Patient Comments: at night duloxetine 40 mg capsule,delayed release(DR/EC) PO Anoro Ellipta 62.5-25 mcg/actuation blister with device 1 inh inhalation DAILY 90 Days Qty: 180 3RF albuterol sulfate 90 mcg/actuation HFA aerosol inhaler 1 - 2 puff inhalation Q4-6H PRN (Reason: shortness of breath or wheezing) 90 Days Qty: 25.5 1RF omeprazole 20 mg tablet,delayed release (DR/EC) 20 mg PO DAILY 14 Days Qty: 14 0RF Follow-up/Referrals: Mando Crawford APRN [Primary Care Provider] - 3 Days Time of Disposition: 13:07
[2025-03-01 12:31] VITALS: BP 135/90; PULSE 95; RESP 20; TEMP 36.9; O2SAT 98
== END 2025-03-01 13:10 | disposition home or self-care (01) ==
PROVIDERS: Emergency Provider Nurse Practitioner Family; PCP Nurse Practitioner Family
DX: J06.9 Acute upper respiratory infection, unspecified (principal); R05.9 Cough, unspecified; F17.210 Nicotine dependence, cigarettes, uncomplicated; J44.9 Chronic obstructive pulmonary disease, unspecified; K21.9 Gastro-esophageal reflux disease without esophagitis; I10 Essential (primary) hypertension; E78.1 Pure hyperglyceridemia; K31.84 Gastroparesis; Z86.16 Personal history of COVID-19
CPT/HCPCS: 99213; G0463

== ENCOUNTER 2025-05-01 10:02 | Outpatient (CLI) | payer MEDICARE, SELFPAY ==
--- NOTE | ~2025-05-01 | MM_ITS ---
EXAMINATION: MM screening douglas BI w alana HISTORY: Screening mammogram TECHNIQUE: Craniocaudal and mediolateral oblique 3-D tomosynthesis images were obtained and synthetic 2-D images were generated. CAD analysis was submitted and interpreted. COMPARISON: 04/28/2024, 12/23/2022, 08/29/2021 BREAST PARENCHYMAL COMPOSITION:Dense: The breasts are heterogeneously dense, which may obscure small masses. FINDINGS: No suspicious mass, calcification, or architectural distortion are identified in either alee ast to suggest malignancy. There has been no suspicious interval change. IMPRESSION: No mammographic evidence of malignancy. Recommend routine screening mammography in one year. BI-RADS Category 1: Negative Reviewed, dictated and finalized at location .
== END 2025-05-01 10:03 | disposition home or self-care (01) ==
LOC: MICIMG 10:02
PROVIDERS: PCP Family Medicine; Visit Provider Obstetrics & Gynecology Gynecology
DX: Z12.31 Encounter for screening mammogram for malignant neoplasm of breast (principal)
CPT/HCPCS: 77063; 77067

== ENCOUNTER 2025-08-02 00:03 | Day surgery (SDC) | payer MEDICARE, SELFPAY ==
[2025-07-23 10:55] VITALS: BMI 22.0
[2025-07-24 09:17] VITALS: BMI 22.0
--- OUTSIDE RECORDS SUMMARY | 2025-08-02 00:08 | XMS_ITS | Clinical Summary ---
Author Organization [facility] [employer] Address [address] [place] [address] Care Team Providers Care It Applications Analyst Name Role Phone Farshad Clark MD Primary Care Provider [phone] Allergies No known active allergies Medications progesterone (PROMETRIUM) 200 mg capsule Take 200 mg by mouth daily Active albuterol HFA (PROVENTIL HFA,VENTOLIN HFA,PROAIR HFA) 90 mcg/actuation inhaler Inhale 1 puff every 6 (six) hours as needed for wheezing [address] (CYMBALTA) 20 mg capsule Take 1 capsule (20 mg total) by mouth daily 4 Active omeprazole (PriLOSEC) 20 mg capsule Take 1 capsule (20 mg total) by mouth daily 4 Active TiZANidine (ZANAFLEX) 4 mg capsule Take 1 capsule (4 mg total) by mouth 3 (three) times a day as needed 4 Active oxyCODONE (ROXICODONE) 15 mg immediate release tabletIndications:P ain Take 0.5 tablets (7.5 mg total) by mouth every 4 (four) hours as needed for pain 12 tablet 4 Active ondansetron ODT (ZOFRAN-ODT) 4 mg disintegrating tablet Take 1 tablet (4 mg total) by mouth every 4 (four) hours as needed for nausea or vomiting 10 tablet 4 Active Active Problems Problem Noted Date Diagnosed Date Erosive esophagitis 02/06/2025 Gastritis 02/06/2025 Epigastric pain 02/06/2025 Menopause 10/10/2024 Assessment & Plan (10/11/2024 12:51 PM [facility]): +200mg progesterone every day, 0.5 estradiol every day + otherwise on home cholecalciferol 2000mg every day and vit d + calcium supplement BID -vitD 25-OH 53 RUQ pain 10/09/2024 Assessment & Plan (10/16/2024 6:01 PM [facility]): Chronic intermittent RUQ pain ever since CCK 2019 but now p/w acute on chronic RUQ pain a/w vomiting. Patient has a history of IBS, appendectomy, tubal ligation around . Mild thickening of transverse/ascending colon wall suggestive of ischemic vs infectious colitis. - OSH workup: CT cap 10/08 w/ healing R rib fractures w/ RLL lobe laceration and small R PTX, wall thickening of ascending and transverse colon c/f colitis, no PE, mild emphysema, total bili 0.7, AST 87, ALT 141, AP 223, trp neg , lipase nl, UA neg - Ddx: colitis vs s/p CCK so should not be GB etiology. Low concern for cholangitis of remaining ducts. Could also be rib pain from known fractures -If infectious colitis ruled out, patient may also benefit from MRCP in the outpatient setting to better characterize further etiologies which may cause acute on chronic abdominal pain, including post cholecystectomy syndrome. Plan: - GGT elevated (investigating ALP elevation), but ALT is also elevated which confounds the clinical picture. Given colitis on CT, could also be intestinal alkaline phosphatase - RUQUS without explanatory findings for patient's pain - stool cultures negative, C diff (-), norovirus (-), H pylori negative - fecal calprotectin 2800; this can be elevated in ischemic colitis as well as IBD - abx: s/p cipro, SIMPSON x 7 days - pain control: APAP PRN 1st line, oxy PRN 2nd line; increased duloxetine 10/15 - simethicone, PPI, imodium - colonoscopy 10/13/24: R colonic ulceration concerning for ischemia; path pending Diarrhea 10/09/2024 Assessment & Plan (10/10/2024 1:09 PM [facility]): See #RUQ Pain -given diet back after NPO for RUQUS -will treat as needed +1000 IVF NS for vol resus Rib fracture 10/09/2024 Assessment & Plan (10/11/2024 12:50 PM [facility]): Fell 09/06 and seen at [facility] for multiple rib fractures. CXR 09/11 w/ lateral R 7th rib fracture. Says rib pain healing in last month however has new RUQ pain. - OSH workup: CT cap 10/08 w/ healing R rib fractures w/ RLL lobe laceration and small R PTX - on RA Plan: - discussed w/ radiology and CXR here c/f tiny R apical PTX - stop daily CXRs and monitor clinically Abnormal CT scan, colon 10/08/2024 Chronic maxillary sinusitis 01/05/2020 Seasonal allergic rhinitis due to pollen 020 Resolved Problems Problem Noted Date Diagnosed Date Resolved Date Acute respiratory failure with hypoxia 10/09/2024 10/09/2024 Assessment & Plan (10/09/2024 7:44 PM [facility]): Fell 1 month ago w/ rib fractures, sent here for c/f PTX. Currently on 2L but CXR w/o c/f PTX and transferred from thoracic service to us Plan: - EKG - RVP - basic labs - d dimer - tele Surgical History Surgery Date Site/Laterality Comments APPENDECTOMY ADENOIDECTOMY W/ MYRINGOTOMY AND TUBES TONSILLECTOMY Medical History Medical History Date Comments Hypertension Family History Medical History Relation Name Comments Diabetes Brother Relation Name Status Comments Brother Social History Tobacco Use Types Packs/Day Years Used Date Smoking Tobacco: Every Day Cigarettes Smokeless Tobacco: Never AUDIT-C Answer Date Recorded Q1: How often do you have a drink containing alc ohol? 2-4 times a month 10/13/2024 Q2: How many drinks containi ng alcohol do you have on a typical day when you are drinking? 1 or 2 10/13/2024 Q3: How often do you have si x or more drinks on one occasion? Never 10/13/2024 Personal Safety Answer Date Recorded Have you ever been in or are you currently in a harmful physical or emotional relationship or is someone making you feel afraid or unsafe? Denies 10/13/2024 Comments Unknown Sex and Gender Information Value Date Recorded Sex Assigned at Not on file Legal Sex Female 7:40 AM [facility] Gender Identity Not on file Sexual Orientation Not on file Obstetrics History Last Filed Vital Signs Vital Sign Reading Time Taken Comments Blood Pressure 113/57 10/16/2024 2:24 PM [facility] Pulse 69 10/16/2024 2:24 PM [facility] Temperature 36.7 C (98.1 F) 10/16/2024 2:24 PM [facility] Respiratory Rate 18 10/16/2024 2:24 PM [facility] Oxygen Saturation 100% 10/16/2024 2:24 PM [facility] Inhaled Oxygen Concentration - - Weight 59 kg (130 lb) 10/09/2024 8:22 AM [facility] Height 165.1 cm (5' 5) 10/14/2024 9:58 AM [facility] Body Mass Index 21.63 10/09/2024 8:22 AM [facility] Plan of Treatment Health Maintenance Due Date Last Done Comments Breast Cancer Screening-Mammogram 1955 Depression Screening 1955 Osteoporosis Screening-Bone Density Scan 1955 DTaP/Tdap/Td Vaccine (1 - Tdap) 1968 Hepatitis B Screening 1975 Pneumococcal vaccine 65+ (1 of 2 - PCV) 1976 Zoster Vaccine (1 of 2) 2007 Well Visit 65+ 2022 Covid-19 Vaccine (4 - 2024-2 6 season) 2025 09/18/2022, 11/16/2021, 01/04/2021 Influenza Vaccine (#1) 2025 4, 09/18/2022, 10/10/2020, Additional history exists Fall Risk Assessment 10/16/2025 10/16/2024 Colon Cancer Screening-Colonoscopy 10/13/2034 10/13/2024 Hepatitis C Screening Completed 10/09/2024 Colon Cancer Screening-CT Colonography Discontinued 10/13/2024 Colon Cancer Screening-DNA Stool Discontinued 10/13/20 Colon Cancer Screening-FIT Discontinued 10/13/2024 Colon Cancer Screening-Sigmoidoscopy Discontinued 10/13/2024 Procedures Procedure Name Priority Date/Time Associated Diagnosis Comments COLONOSCOPY 10/13/2024 10:46 AM [facility] from Last 3 Months or Most Recently Relevant to Health Maintenance Results * Colonoscopy (10/13/2024 10:46 AM [facility]) Anatomical Region Laterality Modality Other Narrative Procedure Note Jodi Treviño, - 10/13/2024 10:46 AM [facility] Patient Name: Tonia Azar Procedure Date: 10/13/2024 10:46AM Date of : 1955 Admit Type: Inpatient Age: 68 Gender: Female Attending MD: Jodi Treviño M.D. Room: [facility] ENDOSCOPY Note Status: Finalized Procedure: Colonoscopy Indications: Last colonoscopy: date unknown, Clinicallysignificant diarrhea of unexplained origin, Abnormal CT of theGI tract Referring MD: Juan A Love M.D. Providers: Jodi Treviño M.D., Robby Martinez M.D. Comorbidities COPD, GERD, IBS, cholecystectomy in 2019, fall with R ribs fracturein 09/2024 no pneumothorax. RUQ pain and persistent diarrhea withascending and transverse colon thickening (infectious vs. small vesselischemia) Medicines: Monitored Anesthesia Care Complications: No immediate complications. Estimated Blood Loss: Estimated blood loss was minimal. Procedure: Pre-Anesthesia Assessment: - [place] Protocol: - Pre-procedure Verification: Prior to theprocedure, the patient's identity was verified by full nameand date of . The patient's identity was verifiedon all pertinent medical records, including pre-anesthesia assessment. Also prior to the procedure, a History and Physical was performed,and patient medications, allergies and sensitivitieswere reviewed. The patient's tolerance of previous anesthesia was reviewed. The patient is competent.The risks and benefits of the procedure and thesedation options and risks were discussed with the patient.All questions were answered and informed consent was obtained. - Marking: The endoscopic procedure was visually marked on a patient wrist band delineating thepatient name, proposed procedure and endoscopist'sinitials. - Time-Out: Prior to the start of the procedure,the patient's identification, proposed procedure,accurate signed consent, correctly labeled images andrecords, and need for prophylactic antibiotics were verifiedby the nurse in the endoscopy suite. - Prior to the procedure, a History and Physicalwas performed, and patient medications, allergies and sensitivities were reviewed. The patient'stolerance of previous anesthesia was reviewed. - The risks and benefits of the procedure and the sedation options and risks were discussed with the patient. All questions were answered and informed consent was obtained. - Immediately prior to administration ofmedications, the patient was re-assessed for adequacy to receive sedatives. The benefits, risks and alternatives of theprocedure and sedation were discussed and informed consentwas obtained. All questions were answered. Please referto the signed informed consent document in the medical record. The scope was passed under direct vision.The [id number] endoscope was introduced through the anus and advanced to the the cecum, identifiedby appendiceal orifice and ileocecal valve. The colonoscopy was performed without difficulty. The patient tolerated the procedure well. The qualityof the bowel preparation was poor. The bowelpreparation used was GoLYTELY via split dose instruction. Findings: Skin tags were found on perianal exam. Hemorrhoids were found on perianal exam. A continuous area of ulcerated mucosa with stigmata of recentbleeding was present at the splenic flexure, in the transverse colon, at the hepatic flexure, in the ascending colon and in the cecum. Biopsieswere taken with a cold forceps for histology. Many small and large-mouthed diverticula were found in therecto-sigmoid colon. Normal mucosa was found in the sigmoid colon. A moderate amount of semi-solid stool was found in the entire colon, interfering with visualization. Impression: - Perianal skin tags found on perianal exam. - Hemorrhoids found on perianal exam. - Mucosal ulceration. Biopsied. - Diverticulosis in the recto-sigmoid colon. - Normal mucosa in the sigmoid colon. - Stool in the entire examined colon. Recommendation: - [facility]. - Await pathology results. - Further recommendations per the inpatient GIservice. Attending Participation: I was present and participated during the entire procedure, including non-cameron portions. Electronically signed by Jodi Treviño MD Jodi Treviño M.D. 10/13/2024 12:02:11 PM Number of Addenda: 0 Note Initiated On: 10/13/2024 10:46 AM Jodi Treviño MD ENDOSCOPY PROCEDURES Final Result from Last 3 Months or Most Recently Relevant to Health Maintenance Insurance [facility] MEDICARE ADVANTAGE [facility]IC[facility] Address[id number] [place] [address] [facility] MEDICARE ADVANTAGE [facility] MEDICARE Address: [address] [address] Advance Directives For more information, please contact: [phone] Documents on File Type Date Recorded Patient Manager Client Expl anation ADVANCE DIRECTIVE 10/19/2024 8:26 AM [employer] SERVICE AGENT-MEDICAL ADVANCE DIRECTIVE 10/13/2024 9:31 AM [employer] SERVICE AGENT-MEDICAL * Full Code (Latest Code Status on File) Date Activated Date Inactivated Comments 10/13/2024 10:30 AM 10/16/2024 10:32 PM * Full Code Date Activated Date Inactivated Comments 10/09/2024 9:15 AM 10/13/2024 10:30 AM Care Teams It Applications Analyst Relationship Specialty Start Date End Date Farshad Clark MD [address] [place], [place] [id number] PCP - General Family Medicine 10/09/24
--- OUTSIDE RECORDS SUMMARY | 2025-08-02 00:08 | XMS_ITS | Clinical Summary ---
Author Organization [facility] Address [address] [place] [id number] Care Team Providers Care Leather Repairer Name Role Phone Taye Aguilar MD Primary Care Provider [phone] Social History Tobacco Use Types Packs/Day Years Used Date Smoking Tobacco: Never Assessed Comments Unknown Sex and Gender Information Value Date Recorded Sex Assigned at Not on file Legal Sex Female 4:19 PM CDT Gender Identity Not on file Sexual Orientation Not on file Plan of Treatment Health Maintenance Due Date Last Done Comments Colorectal Cancer Screening Colonoscopy (10 Years) 1955 Hepatitis C 1975 DTaP, Tdap and Td Vaccines ( 1 - Tdap) 1976 Mammogram Screening 1997 Pneumococcal Vaccine: 50+ Ye ars (1 of 1 - PCV) 2007 Zoster Vaccines (1 of 2) 2007 Dexa Scan (General) 2022 COVID-19 Vaccine (1 - 2023-2 5 season) 2025 RSV Immunization or 60+ Years (1 - 1-dose 75+ series) 2032 Meningococcal B Vaccine Aged Out No l onger eligible based on patient's age to complete this topic Meningococcal Vaccine Aged Out No baldomero bay eligible based on patient's age to complete this topic RSV Immunizations Under 20 Months Aged Out No longer eligible based on patient's age to complete this topic Care Teams Leather Repairer Relationship Specialty Start Date End Date Taye Aguilar MD [address] [place] [id number] PCP - General 02/02/15
--- OUTSIDE RECORDS SUMMARY | 2025-08-02 00:09 | XMS_ITS | Patient Health Record ---
Author Organization [employer] Address [address] [facility] [place]. [address] [place] [address] Care Team Providers Care Design Teacher Name Role Phone Taye Aguilar MD Primary Care Provider Starr charles Marilynnorrow, Etienne Unavailable [phone] Reason For Referral No Information Medications Medication SIG (Take, Route, Frequency, Duration) Notes Start Date End Date Status Pantoprazole Sodium 40 MG 1 tablet Orall y Once a day for 90 days Active OTC/Vitamins Vitamin D Active amLODIPine Besylate Active Losartan Potassium A ctive Progesterone Active Estradiol Active ALPRAZolam Active Immunizations Vaccine Route Administration Date Status Comme nts Influenza Vaccination Unknown 08/02/2018 Administered Social History Tobacco Use: Social History Observation Description Date Details (start date - stop date) Current Smoker NA - NA Tobacco Use/Smoking Question Answer Notes Are you a current smoker Problems Problem Type SNOMED Code ICD Code Onset Dates Problem Status W/U Status Risk Notes Problem 34177274 Epigastric pain (R10.13) Active confirmed She continues to have severe epigastric and right upper quadrant pain. She had a normal CT and blood work last year. She was started on pantoprazole 40 mg a day. Her upper endoscopy in January last year revealed grade B reflux esophagitis and non bleeding erosive gastropathy. She also had an ultrasound that was unremarkable. She gets waves of nausea that come on out of nowhere, but has not had any episodes of vomiting. Differential diagnosis includes gallbladder dysfunction, gastroparesis, nonulcer dyspepsia, or others. Problem 360015139 Nausea (R11.0) Active confirmed Problem 67632882 Weight loss (R63.4) Active confirmed She lost 26 pounds this summer following the of her son, but more recently her weight has been stable. Problem 70471345 Constipation (K59.00) Active confirmed Her bowel movements alternate between being soft and constipated. There has not been any blood in the stool. She was recently advised to begin prune juice to help with regularity. Her last colonoscopy about 3 years ago was normal. Suspect symptoms are functional in nature. Problem 3955799 Gastritis (K29.70) Active confirmed Problem 00412994 Erosive esophagitis (K22.10) Active confirmed Problem 48450289 Nausea and vomiting (R11.2) Active confirmed Problem 760483099 Alternating constipation and diarrhea (R19.8) Active confirmed Her bowel movements alternate between being loose, formed, and constipated. She takes a stool softener as needed and will drink prune juice if she has not had a bowel movement in several days. She denies seeing any blood in the stool. Her last colonoscopy was about 3 years ago, which by her report was normal. Suspect symptoms are functional in nature. Plan Of Treatment Pending Test Test Name Order Date Upper Endoscopy 01/05/2019 TROPONIN I 04/20/2019 CMP: COMPLETE METABOLIC PANEL 05/09/2020 CBC With Differential/Platelet 9 CBC With Differential/Platelet 0 CRP 05/09/2020 Insurance Providers Payer Name Payer Address Payer Phone Subscriber Number Group Number Insured Name Patient Relationship to Insured Coverage Start Date Coverage End Date [facility] [address] [place] [phone] [id number] Tank Azar Spouse - patient is the spouse of the insured Medical (General) History Medical History History ICD Code IBS Hypertension Surgical History Surgery Date(Month/Year) EGD 01/2019 Tubal ligation Appendectomy Colonoscopy 2016
[2025-08-02 07:25] VITALS: BP 110/53; PULSE 89; RESP 18; TEMP 36.3; O2SAT 98; BMI 21.2
[2025-08-02] MEDS: LACTATED RINGERS 1,000 ML 150 ML IV CONT (07:29)
--- NOTE | 2025-08-02 08:09 | WPDANESEPPF ---
Anes - Initial Pre Proc Eval Procedure: Operation Date: 08/02/25 08:30 Proposed Procedures p EGD & Diagnostic Colonoscopy - George Robertson MD Date/Time: 08/02/25 08:09 Surgeon: George Robertson MD Pre Op Diagnosis: Epigastric pain, GERD, Abdominal distension Patient Data Age: 69 Gender: F Height: 1.65 m Weight: 57.9 kg Last Vital Signs Temp 97.4 F L 08/02/25 07:25 Pulse 89 08/02/25 07:25 Resp 18 08/02/25 07:25 BP 110/53 L 08/02/25 07:25 Pulse Ox 98 08/02/25 07:25 O2 Del Method Room Air 08/02/25 07:25 Allergies Allergy/AdvReac Type Severity Reaction Status Date / Time tramadol AdvReac Intermediate Other Verified 07/24/25 09:16 amitriptyline AdvReac Mild Photosensit Verified 07/24/25 09:16 ivity Home Medications ?Medication ?Instructions ?Recorded ?Confirmed ?Type estradiol 0.5 mg tablet 0.5 mg PO QHS 08/27/21 08/02/25 History progesterone micronized 200 mg 200 mg PO QHS 08/27/21 08/02/25 History capsule ipratropium bromide 42 mcg (0.06 2 spray intranasal QID PRN allergy 03/09/25 08/02/25 Rx %) nasal spray symptoms #15 mL albuterol sulfate 90 mcg/actuation 1 - 2 puff inhalation Q4-6H PRN 03/14/25 07/24/25 Rx aerosol inhaler shortness of breath or wheezing 90 days #25.5 grams colestipol 1 gram tablet (Colestid) 1 g PO BID #60 tabs 03/28/25 08/02/25 Rx magnesium glycinate 100 mg (as 100 mg PO BID sleep 03/28/25 08/02/25 History glycinate) tablet calcium plus vit d 2,000 units BYMOUTH DAILY 06/14/25 08/02/25 History cholecalciferol (vitamin D3) 10 10 mcg PO DAILY 06/14/25 08/02/25 History mcg (400 unit) capsule lactobacillus combination no.4 3 3,000 mmu cells PO DAILY 06/14/25 08/02/25 History billion cell capsule (Probiotic) levocetirizine 5 mg tablet (24HR 5 mg PO DAILY 06/14/25 08/02/25 History Allergy Relief) Anoro Ellipta 62.5 mcg-25 1 inh inhalation DAILY 90 days 07/12/25 08/02/25 Rx mcg/actuation powder for #180 ea inhalation (umeclidinium-vilanterol) Patient hx anesthesia problems: none Family hx anesthesia problems: none Results Review: All pre-operative results and documents have been reviewed as part of the pre-operative evaluation. [facility] Past Medical History Medical History COPD (chronic obstructive pulmonary disease) Rib pain Lumbar back pain with radiculopathy affecting lower extremity Chronic bronchitis with acute exacerbation Elevated liver enzymes Elevated glucose Cholecystectomy planned COVID-19 IBS (irritable bowel syndrome) Adenomatous colon polyp Gastroparesis Colon cancer screening Chronic RUQ pain Epigastric pain Nausea Fracture of left humerus Obstructive lung disease GERD without esophagitis High triglycerides Screening, lipid Anxiety disorder, unspecified Hypertension Depression Hx of bronchitis Surgical History Surgical History History of cholecystectomy History of appendectomy lap in 2017 Family History Family History Sibling Diabetes mellitus Hypertension Patient's brother is in good health Acute myocardial infarction Mother Patient's mother is in good health Family history of Alzheimer's disease Father Patient's father is , Onset Age: 63 Other Family history of alcoholism Family history of irritable bowel syndrome Family history of osteoporosis Social History Social History Smoking packs per day: 1 Smoking cigarettes per day: 20.0 Years smoked: 50 Smoking pack-years: 50.00 Smoking status: Current every day smoker Tobacco type: cigarettes Second hand tobacco smoke exposure: No Alcohol intake: former Drinks per week: 6 Alcohol use details: SOCIALLY Substance use: never Substance use type: does not use Do You Feel Safe in your Home?: Yes Lack of Transportation: No Lack of Food: Never True Current Housing: I Have Housing Concerned About Future Housing: No Difficulty Paying Gas/Electric Bills: No Difficulty Paying for Meds: No Currently Unemployed: No Education: High School Diploma/GED Difficulty w/ Childcare or Family Care: No Living arrangements: with family Occupation/Education: occupation 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 Smoker, 1ppd, COPD/asthma, stable, HTN, abdominal pain. Informed Consent: The patient's anesthetic plan and its attendant risks and benefits were discussed with the patient/family/POA. Questions were solicited and answers provided to the satisfaction of the patient/family/POA.
--- NOTE | 2025-08-02 08:21 | PM.HPGS ---
History of Present Illness History of Present Illness Consent: Risks, benefits, and alternatives have been discussed and questions answered. Patient agrees to proceed with procedure. Chief complaint: Epigastric pain, GERD, Abdominal distension Narrative: Tonia Azar is a 69 year old female here for egd and colonoscopy, had colitis in rt colon 10/2024, also h/o gerd, diarrhea better with colestipol Review of Systems Review of Systems: All systems reviewed & are unremarkable except as noted in HPI and below PMFSH Past Medical History Medical History COPD (chronic obstructive pulmonary disease) Rib pain Lumbar back pain with radiculopathy affecting lower extremity Chronic bronchitis with acute exacerbation Elevated liver enzymes Elevated glucose Cholecystectomy planned COVID-19 IBS (irritable bowel syndrome) Adenomatous colon polyp Gastroparesis Colon cancer screening Chronic RUQ pain Epigastric pain Nausea Fracture of left humerus Obstructive lung disease GERD without esophagitis High triglycerides Screening, lipid Anxiety disorder, unspecified Hypertension Depression Hx of bronchitis Surgical History Surgical History History of cholecystectomy History of appendectomy lap in 2017 Family History Family History Sibling Diabetes mellitus Hypertension Patient's brother is in good health Acute myocardial infarction Mother Patient's mother is in good health Family history of Alzheimer's disease Father Patient's father is , Onset Age: 63 Other Family history of alcoholism Family history of irritable bowel syndrome Family history of osteoporosis Social History Social History Smoking packs per day: 1 Smoking cigarettes per day: 20.0 Years smoked: 50 Smoking pack-years: 50.00 Smoking status: Current every day smoker Tobacco type: cigarettes Second hand tobacco smoke exposure: No Alcohol intake: former Drinks per week: 6 Alcohol use details: SOCIALLY Substance use: never Substance use type: does not use Do You Feel Safe in your Home?: Yes Lack of Transportation: No Lack of Food: Never True Current Housing: I Have Housing Concerned About Future Housing: No Difficulty Paying Gas/Electric Bills: No Difficulty Paying for Meds: No Currently Unemployed: No Education: High School Diploma/GED Difficulty w/ Childcare or Family Care: No Living arrangements: with family Occupation/Education: occupation 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 Gender identity (if verbalized by the patient): Female Spiritual care concerns: No Meds Home Medications and Allergies Home Medications ?Medication ?Instructions ?Recorded ?Confirmed ?Type estradiol 0.5 mg tablet 0.5 mg PO QHS 08/27/21 08/02/25 History progesterone micronized 200 mg 200 mg PO QHS 08/27/21 08/02/25 History capsule ipratropium bromide 42 mcg (0.06 2 spray intranasal QID PRN allergy 03/09/25 08/02/25 Rx %) nasal spray symptoms #15 mL albuterol sulfate 90 mcg/actuation 1 - 2 puff inhalation Q4-6H PRN 03/14/25 07/24/25 Rx aerosol inhaler shortness of breath or wheezing 90 days #25.5 grams colestipol 1 gram tablet (Colestid) 1 g PO BID #60 tabs 03/28/25 08/02/25 Rx magnesium glycinate 100 mg (as 100 mg PO BID sleep 03/28/25 08/02/25 History glycinate) tablet calcium plus vit d 2,000 units BYMOUTH DAILY 06/14/25 08/02/25 History cholecalciferol (vitamin D3) 10 10 mcg PO DAILY 06/14/25 08/02/25 History mcg (400 unit) capsule lactobacillus combination no.4 3 3,000 mmu cells PO DAILY 06/14/25 08/02/25 History billion cell capsule (Probiotic) levocetirizine 5 mg tablet (24HR 5 mg PO DAILY 06/14/25 08/02/25 History Allergy Relief) Anoro Ellipta 62.5 mcg-25 1 inh inhalation DAILY 90 days 07/12/25 08/02/25 Rx mcg/actuation powder for #180 ea inhalation (umeclidinium-vilanterol) Allergies Allergy/AdvReac Type Severity Reaction Status Date / Time tramadol AdvReac Intermediate Other Verified 07/24/25 09:16 amitriptyline AdvReac Mild Photosensit Verified 07/24/25 09:16 ivity Vital Signs Vital Signs - 24 hr 08/02/25 07:25 Temperature 97.4 F L Pulse Rate 89 Respiratory Rate 18 Blood Pressure 110/53 L Pulse Oximetry 98 Oxygen Delivery Room Air Exam Const: General: comfortable and no acute distress HENMT: Face/Nose/Sinus: Normal nares present Eyes: General: appearance normal, both eyes and all related structures Neck: Neck: no JVD Resp: Auscultation: clear to auscultation bilaterally Cardio: Rate: regular rate Rhythm: regular rhythm GI: Inspection: non-distended GI Palp: Yes Soft to palpation Skin: General skin exam: normal color Extrem: General: normal to inspection Assessment and Plan Assessment and plan (1) GERD without esophagitis: Code(s): K21.9 - Gastro-esophageal reflux disease without esophagitis Status: Acute Assessment and Plan: egd (2) Abdominal bloating: Code(s): R14.0 - Abdominal distension (gaseous) Status: Acute (3) Colitis: Code(s): K52.9 - Noninfective gastroenteritis and colitis, unspecified Status: Acute Assessment and Plan: colonoscopy to assess healing
--- NOTE | 2025-08-02 08:29 | S_PTH ---
PATIENT: Tonia Azar LOC: [facility]#:[id number] AGE/SX: 69/F ROOM: RE08/02/[address]: George Robertson MD : 1955 BED: DIS: 08/02/2025 SPEC #: [id number] RECD: 08/02/25 09:43 STATUS: DARRYL MICHAEL #: [id number] LEANNE: 08/02/25 08:[address]: George Robertson DEPT: [facility] Surgical RECD BY: Arlette Sterling ENTERED: 08/02/25 09:43 SP TYPE: Surgical OTHR DR: Regis Rodríguez MD Tissues: A - Small Bowel Bx B - Gastric Biopsy C - Colon Polypectomy Procedures: Hematoxylin and Eosin Stain Gross and Microscopic Level 4
--- NOTE | 2025-08-02 08:31 | SUR.OPER ---
EGD: ended 825, COLON: started 830
[2025-08-02 08:48] VITALS: BP 107/63; PULSE 81; RESP 18; O2SAT 100
[2025-08-02 08:58] VITALS: BP 101/73; PULSE 77; RESP 18; O2SAT 100
[2025-08-02 09:08] VITALS: BP 128/75; PULSE 73; RESP 18; O2SAT 100
== END 2025-08-02 09:25 | disposition home or self-care (01) ==
PROVIDERS: PCP Family Medicine; Referring Provider Nurse Practitioner; Visit Provider Internal Medicine Gastroenterology
PROC: 0DJ08ZZ Inspection of Upper Intestinal Tract, Via Natural or Artificial Opening Endoscopic (ICD-10-PCS; CPT 45378; principal; 2025-08-02 08:30)
DX: K21.00 Gastro-esophageal reflux disease with esophagitis, without bleeding (principal); K29.70 Gastritis, unspecified, without bleeding; D12.3 Benign neoplasm of transverse colon; K64.8 Other hemorrhoids; K57.30 Diverticulosis of large intestine without perforation or abscess without bleeding; I10 Essential (primary) hypertension; J44.1 Chronic obstructive pulmonary disease with (acute) exacerbation; K58.9 Irritable bowel syndrome, unspecified; R10.11 Right upper quadrant pain; F41.9 Anxiety disorder, unspecified; F32.A Depression, unspecified; F17.210 Nicotine dependence, cigarettes, uncomplicated; Z79.51 Long term (current) use of inhaled steroids; Z98.890 Other specified postprocedural states; Z90.49 Acquired absence of other specified parts of digestive tract; Z82.49 Family history of ischemic heart disease and other diseases of the circulatory system
CPT/HCPCS: 43239; 45385; 88305; J2003; J2704; J7120